=== PATIENT | female | born 1960 | race Caucasian/White ===

== ENCOUNTER → 2019-01-01 09:39 | Outpatient (CLI) | payer BC, SELFPAY ==
--- NOTE | 2019-01-01 09:49 | XR_ITS ---
XR DEXA axial skeleton HISTORY: ITS.REASON: POSTMENOPAUSAL ORDERING PHYSICIAN: Nikhil Resendez MD PATIENT AGE: 58 years COMPARISON: None FINDINGS: The BMD measured at the Left femoral neck is 0.711 g/cm squared with a T score of -2.4. This is considered Osteopenic according to the World Health Organization criteria. Fracture risk is Moderate. Treatment is advised. The L1 L4 density has T score of -1.8 IMPRESSION: Osteopenia with moderate fracture risk. Treatment advised. Suggest follow-up exam December 2020
== END ==
PROVIDERS: PCP Family Medicine; Visit Provider Family Medicine
DX: Z13.820 Encounter for screening for osteoporosis (principal)
CPT/HCPCS: 77080

== ENCOUNTER → 2019-05-09 14:42 | Outpatient (CLI) | payer BC, SELFPAY | PROVIDERS: PCP Family Medicine; Visit Provider Family Medicine | DX: R06.02 Shortness of breath (principal) | CPT/HCPCS: 93306 ==

== ENCOUNTER → 2020-03-17 10:40 | Outpatient (CLI) | payer BC, SELFPAY ==
--- NOTE | 2020-03-17 10:53 | XR_ITS ---
PROCEDURE: XR SHOULDER LT MIN 2V CLINICAL INDICATION: L ARM PAIN Left arm pain COMPARISON: No exams were available for comparison FINDINGS: No fracture or dislocation. No lytic or blastic change. There is normal mineralization. There are mild osteoarthritic changes of the glenohumeral joint. Minimal dystrophic calcification noted at the lateral aspect of the acromion. IMPRESSION: Minimal osteoarthritic change Dictated by: Mina Henao MD 03/17/2020 14:51 Electronically signed by Mina Henao MD in [place] 03/17/2020 14:51
== END ==
PROVIDERS: PCP Family Medicine; Visit Provider Family Medicine
DX: M79.602 Pain in left arm (principal)
CPT/HCPCS: 73030

== ENCOUNTER → 2020-05-08 14:29 | Outpatient (CLI) | payer BC, SELFPAY ==
--- NOTE | 2020-05-08 14:32 | MR_ITS ---
PROCEDURE: MR SHOULDER LT WO CON CLINICAL INDICATION: LEFT SHOULDER PAIN LT SHOULDER PAIN. NUMBNESS IN LT HAND. PAIN WHEN RAISING ARM ABOVE HEAD. [id number]. NO INJURY. PRIOR X-RAY 03-17-20 COMPARISON: DX XR SHOULDER LT MIN 2V from 03/17/2020 TECHNIQUE: Routine multiplanar multi echo sequences are performed without gadolinium enhancement. FINDINGS: There is mild acromioclavicular hypertrophy. No significant subacromial stenosis. No evidence of full-thickness or complete rotator cuff tear. There is some mild thickening with increased T2 signal within the supraspinatus and infraspinatus tendon consistent with tendinopathy/tendinosis. There is some irregularity along the undersurface of the supraspinatus tendon posteriorly which could be related to minimal fraying/partial tear of the undersurface. A complete tear is not present. The teres minor and subscapularis tendons have an unremarkable appearance. There is mild degree of motion artifact which does obscure fine detail of the subscapularis and teres minor tendon. The bicipital tendon is in place. No obvious labral tear. There is a subchondral cyst along the humeral head superiorly. No significant effusion. IMPRESSION: Mild acromioclavicular arthropathy with tendinopathy/tendinosis of the supraspinatus and infraspinatus tendons with some irregularity along the undersurface of the supraspinatus tendon posteriorly which could be seen with a partial tear. A complete or full-thickness tear is not felt to be present. Dictated by: Mina Henao MD 05/10/2020 08:02 Mina Henao MD in [place] 05/10/2020 08:02
== END ==
PROVIDERS: PCP Family Medicine; Visit Provider Orthopaedic Surgery
DX: M25.512 Pain in left shoulder (principal)
CPT/HCPCS: 73221

== ENCOUNTER 2020-07-16 13:00 | Outpatient (RCR) | payer BC, SELFPAY | END 2020-07-16 14:15 | disposition home or self-care (01) | LOC: PT 13:00 | PROVIDERS: Visit Provider Orthopaedic Surgery | DX: M54.2 Cervicalgia; M75.02 Adhesive capsulitis of left shoulder | CPT/HCPCS: 97010; 97014; 97033; 97035; 97110; 97163; 97164; G0283 ==

== ENCOUNTER → 2022-08-10 09:59 | Outpatient (CLI) | payer BC, SELFPAY | PROVIDERS: PCP Family Medicine | DX: Z79.899 Other long term (current) drug therapy (principal) ==

== ENCOUNTER 2023-12-13 16:32 | Outpatient (CLI) | payer SELFPAY ==
[2023-12-13 16:50] VITALS: BMI 29.1
--- NOTE | 2023-12-13 16:52 | XR_ITS ---
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 Views: 2 views. COMPARISON: CR XR CHEST 2V 12/13/2023 4:15 PM FINDINGS: Lungs: No evidence of pneumonia or interstitial edema. No apical lesions to suggest tuberculosis Pleural spaces: Unremarkable. No pleural effusion. No pneumothorax. Heart/Mediastinum: Unremarkable. No cardiomegaly. Bones/joints: Unremarkable. IMPRESSION: No evidence of pneumonia or interstitial edema. No apical lesions to suggest tuberculosis.
== END 2023-12-13 16:53 | disposition home or self-care (01) ==
LOC: UTC.OUT 16:35
PROVIDERS: PCP Family Medicine; Visit Provider Nurse Practitioner
DX: R76.11 Nonspecific reaction to tuberculin skin test without active tuberculosis (principal)
CPT/HCPCS: 71046

== ENCOUNTER 2024-02-22 08:48 | Outpatient (CLI) | payer MEDICARE, SELFPAY ==
--- NOTE | 2024-02-22 08:54 | XR_ITS ---
FINAL REPORT TECHNIQUE: Bone densitometry calculations of the lumbar spine and left hip were obtained. CLINICAL HISTORY: OSTEOPENIA COMPARISON: 01/01/2019 FINDINGS: Using L1-4, the bone mineral density of the spine is 0.824 g/cm2, corresponding to T-score of -2. Using the left hip, the bone mineral density of the femoral neck is 0.596 g/cm2, corresponding to a T-score of -2.8. NOTE: T-score: Standard deviation compared with peak bone mass of young adult mean. *Following the recommendations of the International Society of Bone Densitometry, classification of hip BMD is based on the lower of two T-scores; total hip or femoral neck. IMPRESSION: Osteoporosis: Lowest T-score is at or below -2.5. This patient''s T-score meets the World Health Organization criteria for osteoporosis. Reviewed, Interpreted and Dictated by Emmanuel Welsh III, MD Transcribed by Hilary Walsh Authenticated and [facility]
--- NOTE | 2024-02-22 08:55 | MM_ITS ---
PROCEDURE INFORMATION: Exam: Bilateral Screening 3D Mammography Exam date and time: 02/22/2024 8:47 AM Age: 63 years old Clinical indication: Screening examination TECHNIQUE: Imaging protocol: Bilateral Screening tomosynthesis and 2D mammography including computer-aided detection (CAD) when performed. COMPARISON: 1. DMSB DIGITAL MAMM-SCREEN BILATERAL 01/30/2012 9:12 AM 2. DIGMAMMS MAMMOGRAM SCREEN-EFFICIENCY MINER BLASTING N/C 07/24/2007 9:40 AM FINDINGS: MAMMOGRAPHY: Breast composition: The breasts are extremely dense, which lowers the sensitivity of mammography. Mass: None. Architectural distortion: None. Calcifications: No suspicious calcifications. Asymmetric density: None. Skin thickening: None. Axillary adenopathy: None. IMPRESSION: No mammographic evidence of malignancy. Annual screening is recommended unless otherwise clinically indicated. ASSESSMENT: BI-RADS Category 1: Negative
== END 2024-02-22 23:59 | disposition home or self-care (01) ==
LOC: RAD 08:49
PROVIDERS: PCP Family Medicine; Visit Provider Family Medicine
DX: M85.89 Other specified disorders of bone density and structure, multiple sites (principal); Z12.31 Encounter for screening mammogram for malignant neoplasm of breast; N60.19 Diffuse cystic mastopathy of unspecified breast
CPT/HCPCS: 77063; 77067; 77080

== ENCOUNTER 2024-07-26 05:23 | Emergency (ER) | payer MEDICARE, SELFPAY ==
--- NOTE | 2024-07-26 05:21 | ECG_ITS ---
APPROVED REPORT Exam: Resting ECG HR:84 bpm ECG Measurements Heart Rate 84 AXES UT 160 P 66 QRSd 90 QRS 60 QT 351 T 76 QTc 392 Conclusion SINUS RHYTHM WITH FREQUENT SUPRAVENTRICULAR PREMATURE COMPLEXES Abnormal rhythm No STEMI Electronically signed by : CARLY SANDOVAL, 07/27/2024 03:35:49
[2024-07-26 05:24] VITALS: BP 167/97; PULSE 102; RESP 17; TEMP 37; O2SAT 96; BMI 29.2
--- NOTE | 2024-07-26 05:24 | XR_ITS ---
PROCEDURE INFORMATION: Exam: XR Chest Exam date and time: 07/26/2024 5:28 AM Age: 63 years old Clinical indication: Pain; Chest pressure; Additional info: Cp TECHNIQUE: Imaging protocol: Radiologic exam of the chest. Views: 2 views. COMPARISON: CR XR CHEST 2V 12/13/2023 4:15 PM FINDINGS: Lungs: Unremarkable. No consolidation. Pleural spaces: Unremarkable. No pleural effusion. No pneumothorax. Heart/Mediastinum: Unremarkable. No cardiomegaly. Bones/joints: Unremarkable. IMPRESSION: No acute findings.
--- NOTE | 2024-07-26 05:26 | ED_ITS ---
Discharge Plan Disposition Patient Disposition: Home, Self-Care Condition: Good Referrals Follow up/Referrals: Gentry Collins MD [Staff Physician] - See instructions (follow up of chest pain, PAC's, palpitations, hx CAD with stents) Provider,Referral, [Primary Care Provider] - See instructions Activity Restrictions/Add. Instructions Additional Instructions/Restrictions: You were evaluated in the ER and are appropriate for discharge at this time. Continue your home medications as prescribed. Drink plenty of water. Take Tylenol, ibuprofen if needed for headache. Please make an appointment with your primary care doctor for reevaluation in 2 to 3 days, they should recheck your kidney function. Please call the cardiology office for immediate follow-up, you have been referred to Dr. Collins for this purpose Return to the ER with new, worsening, or otherwise concerning symptoms. Clinical Impressions Clinical Impression: Chest pain, Palpitations Print Language Print Language: Kuwaiti Discharge ED Provider: Vijaya [facility]a General Chief Complaint: Chest Pain Stated Complaint: chest pain Time Seen by Provider: 07/26/24 05:24 History of Present Illness HPI narrative: 63-year-old female with history of CAD with stents presents to the ER for concerns of palpitations, chest pain, and headache. Patient reports her symptoms onset yesterday evening, palpitations and chest pain started approximately 6 to 7 hours prior to arrival. She does not have any radiation of the chest pain. She described her headache as through the front and top of her head. She states she has mild congestion but this is often a chronic problem for her. She denies nausea, vomiting, diarrhea, no abdominal pain, no dizziness, numbness, tingling, or weakness. She states she is not actively having chest pain at this time but does feel occasional palpitations. She also reports her headache is improved compared to prior. Her headache was not thunderclap or the worst of her life. ROS otherwise negative. Related Data Allergies Allergy/AdvReac Type Severity Reaction Status Date / Time No Known Allergies Allergy Unverified 09/05/17 15:09 [facility] Disclaimer: The information contained in this section may have been updated after the patient was seen, as this information can be updated by other users. Social History Smoking Status: Never smoker alcohol intake: never current occupational status: other Travel in the last 8 weeks: None Other Medical History Have you received the Flu Vaccine for this season: No Have you received the Pneumonia Vaccine: No ROS Obtained: Yes All systems reviewed & no additional complaints except as documented ROS per HPI Physical Exam General General appearance: alert and in no apparent distress Head Head exam: atraumatic and normocephalic Eye Eye exam: Present PERRL and EOMI ENT ENT exam: Present mucous membranes moist Neck Neck exam: Present normal inspection and full ROM Chest Chest inspection: Present symmetric chest wall rise Respiratory Respiratory exam: Present normal lung sounds bilaterally; Absent respiratory distress, wheezes or stridor Cardiovascular Cardiovascular exam: Present regular rate and normal rhythm Abdominal Exam Abdominal exam: Present soft; Absent distention or tenderness Extremities Exam Extremities exam: Present full ROM; Absent edema, joint swelling or calf tenderness Neurological Exam Neurological exam: Present alert and oriented X3; Absent motor sensory deficit Psychiatric Psychiatric exam: Present normal affect and normal mood Skin Skin exam: Present warm and dry HEART Score HEART Score HEART Score assessment performed?: Yes History (anamnesis): Slightly suspicious ECG: Normal Age: 45-65 years Risk factors: Atherosclerosis history Troponin: </= normal limit HEART Score: 3 Critical Care Critical Care Time Critical Care Time: No Medical Decision Making Mirza Inquiry Pt receiving controlled substance: No Vital Signs Vital Signs: 07/26/24 05:24 07/26/24 05:30 07/26/24 05:32 Temperature 98.6 F Temperature Source Oral Pulse Rate 84 102 H Pulse Rate [Right] 102 H Respiratory Rate 17 15 Blood Pressure 170/95 H Blood Pressure [Right Arm] 167/97 H Blood Pressure Mean [Right Arm] 120 02 Sat by Pulse Oximetry 96 98 Oxygen Delivery Method Room Air 07/26/24 06:00 07/26/24 06:30 Temperature Temperature Source Pulse Rate 78 82 Pulse Rate [Right] Respiratory Rate Blood Pressure 138/75 148/83 H Blood Pressure [Right Arm] Blood Pressure Mean [Right Arm] 02 Sat by Pulse Oximetry 98 97 Oxygen Delivery Method Lab Data Labs: Lab Results 07/26/24 05:27: WBC 9.9, RBC 4.70, Hgb 13.9, Hct 38.7, MCV 82.5, MCH 29.5, MCHC 35.8 H, RDW 14.0, Plt Count 245, MPV 8.5, Neut % (Auto) 45.6, Lymph % (Auto) 43.3, [place] % (Auto) 7.4, Eos % (Auto) 2.1, Baso % (Auto) 1.6, Neut # (Auto) 4.5, Lymph # (Auto) 4.3, [place] # (Auto) 0.7, Eos # (Auto) 0.2, Baso # (Auto) 0.2, PT 10.3, INR 0.91, Sodium 139, Potassium 4.3, Chloride 109 H, Carbon Dioxide 17 L, Anion Gap 17.3 H, BUN 35 H, Creatinine 1.30 H, Estimated Creat Clear 49, E stimated GFR 41 L, Est GFR ( Amer) 50 L, Glucose 198 H, Calcium 10.1, Total Bilirubin 0.8, AST 30, ALT 24, Alkaline Phosphatase 55, Troponin I < 0.01, Total Protein 7.4, Albumin 4.6, Globulin 2.8, Albumin/Globulin Ratio 1.6 07/26/24 05:44: SARS-CoV-2 (PCR) Not detected, Influenza A Untype (PCR) Not detected, Influenza Type B (PCR) Not detected 07/26/24 05:27 07/26/24 05:27 Response Orders (Tests/Meds): ED MEDICATIONS Generic Name Dose Route Start Last Admin Trade Name Freq PRN Reason Stop Dose Admin Sodium Chloride 1,000 mls @ 999 mls/hr 07/26/24 05:54 07/26/24 05:56 Sod Chlor 0.9% 1000ml Bag IV 07/26/24 06:54 999 mls/hr .Q1H1M ONE Administration Discontinued Medications Generic Name Dose Route Start Last Admin Trade Name Freq PRN Reason Stop Dose Admin Aspirin 324 mg 07/26/24 05:24 07/26/24 05:34 Aspirin 81mg Chewable Tablet PO 07/26/24 05:25 324 mg ONCE ONE Administration Ketorolac Tromethamine 15 mg 07/26/24 05:37 07/26/24 05:48 Ketorolac 30mg/Ml Vial IV 07/26/24 05:38 15 mg ONCE ONE Administration ORDERS Category Date Time Status CXR 2 view (NOT portable) [XR chest 2V] Stat Exams 07/26/24 05:24 Completed CBC w/Auto Diff [Complete Blood Count Auto Diff] Stat Lab 07/26/24 05:27 Completed CMP [Comprehensive Metabolic Panel] Stat Lab 07/26/24 05:27 Completed HIV (1&2) Antibody Rapid Stat Lab 07/26/24 05:27 Received Hep C Ab with Reflex to RNA Stat Lab 07/26/24 05:27 Received PT INR [Prothrombin Time INR] Stat Lab 07/26/24 05:27 Completed Rapid PCR Covid and Flu A/B Stat Lab 07/26/24 05:44 Completed Trop I [Troponin I] Stat Lab 07/26/24 05:27 Completed Troponin I Q3H Lab 07/26/24 08:30 Ordered Troponin I Q3H Lab 07/26/24 11:30 Ordered MDM Narrative Medical Decision Narrative: In summary, this 63-year-old female with history of CAD presents to the emergency department today with palpitations, chest pain, headache. On initial evaluation patient is hemodynamically stable, afebrile, tachycardia that was reported on triage vitals was absent on my exam, heart rate in the 80s on exam, no peripheral edema, no calf swelling or tenderness, no chest wall tenderness, GCS 15, neurologically intact throughout with no deficits. Differential diagnosis includes but is not limited to ACS, I considered PE but patient is not tachycardic, hypotensive, or hypoxic, she also has no risk factors for PE and no history of DVT or findings of DVT on exam, considered electrolyte abnormality, dehydration, viral syndrome, pneumothorax, esophageal spasm, arrhythmia. Based on these concerns, I ordered serum labs, cardiac workup. ECG personally interpreted demonstrates normal sinus rhythm, rate 84, occasional PACs, normal axis, normal SD and QTc, no STEMI. Patient received aspirin, toradol for treatment. Labs personally reviewed demonstrate no leukocytosis or anemia, platelets normal, CMP demonstrates findings of kidney dysfunction that have been present previously based on my review of previous labs, IV fluids administered, no actionable electrolyte abnormalities, no LFT abnormalities, PT/INR normal.. Troponin undetectably low, reassuring in the setting of low heart score and patient's duration of symptoms. COVID, flu negative. I do not believe serial troponins are indicated at this time since patient is asymptomatic and her onset of symptoms was now over 7 hours ago. XR personally interpreted demonstrates no acute intrathoracic abnormality, see radiology read for final interpretation. On reassessment, patient is asymptomatic and resting comfortably. I believe patient is appropriate for discharge at this time. She has an appointment with her primary care doctor on Monday, I instructed her to follow-up closely with them to recheck her kidney function. I also gave her referral to our joy loading machine operator and she states she used to follow with a joy loading machine operator in [place] but has not seen them in a long time. I instructed her to follow-up with them as soon as possible for reevaluation and to review her ER workup and to discuss her episode of chest pain and PACs. Patient was given instructions on symptomatic management, follow up instructions, and return precautions for the emergency department. Patient indicated understanding and was discharged in stable condition.
[2024-07-26 05:30] VITALS: BP 170/95; PULSE 84; RESP 15; O2SAT 98
[2024-07-26 05:32] VITALS: PULSE 102
[2024-07-26] MEDS: ASPIRIN 81MG CHEWABLE TABLET 324 MG PO (05:34)
[2024-07-26 05:39] LABS: Basophils # 0.2 K/mm3 (0-0.2); Basophils % 1.6 % (0.1-2.0); Eosinophils # 0.2 K/mm3 (0.0-0.4); Eosinophils % 2.1 % (0.1-12.0); Hematocrit 38.7 % (37.0-47.0); Hemoglobin 13.9 g/dL (12.2-16.2); Lymphocytes # 4.3 K/mm3 (0.7-4.5); Lymphocytes % 43.3 % (10-50); Mean Corpuscular HGB Conc 35.8 g/dL (31.8-35.4); Mean Corpuscular Hemoglobin 29.5 pg (27.0-31.2); Mean Corpuscular Volume 82.5 fl (81-99); Mean Platelet Volume 8.5 fl (7.4-10.4); Monocytes # 0.7 K/mm3 (0.1-1.0); Monocytes % 7.4 % (1.7-9.3); Neutrophils # 4.5 K/mm3 (1.8-7.8); Neutrophils % 45.6 % (37.0-80.0); Platelet Count 245 K/mm3 (142-424); White Blood Count 9.9 K/mm3 (4.8-10.8)
[2024-07-26 05:43] LABS: Alanine Aminotransferase 24 U/L (12-78); Albumin Level 4.6 g/dl (3.5-5.0); Albumin/Globulin Ratio 1.6 (1.1-1.8); Alkaline Phosphatase 55 U/L (38-126); Anion Gap 17.3 mEq/L (5-15); Aspartate Amino Transferase 30 U/L (14-36); Bilirubin,Total 0.8 mg/dl (0.2-1.3); Blood Urea Nitrogen 35 mg/dl (7-17); Calcium 10.1 mg/dl (8.4-10.2); Carbon Dioxide 17 mmol/L (22.0-30.0); Chloride 109 mmol/L (98-107); Creatinine Clearance Estimated 49 mL/min (50-200); Estimated Glomerular Filt Rate 41 ml/min (>60); GFR (African American) 50 ML/MIN (>60); Globulin 2.8 g/dL (1.3-3.2); Glucose 198 mg/dl (74-100); Potassium 4.3 mmoL/L (3.5-5.1); Sodium 139 mmol/L (136-145); Total Protein,Serum 7.4 g/dl (6.3-8.2)
[2024-07-26 05:44] LABS: INR 0.91 (0.9-1.1); Prothrombin Time 10.3 seconds (10.1-12.5)
[2024-07-26 05:47] LABS: Coronavirus 19, PCR Not Detected (NotDetected); Influenza A, PCR Not Detected (NotDetected); Influenza B, PCR Not Detected (NotDetected)
[2024-07-26] MEDS: KETOROLAC 30MG/ML VIAL 15 MG IV (05:48)
[2024-07-26] MEDS: 0.9 % SODIUM CHLORIDE 1000ML 1,000 ML 999 ML IV (05:56)
[2024-07-26 06:00] VITALS: BP 138/75; PULSE 78; O2SAT 98
[2024-07-26 06:02] LABS: Troponin I < 0.01 ng/ml (0.00-0.034)
[2024-07-26 06:30] VITALS: BP 148/83; PULSE 82; O2SAT 97
[2024-07-26 06:42] VITALS: BP 148/83; PULSE 79; RESP 20; TEMP 36.8; O2SAT 98
[2024-07-26 11:59] LABS: HIV (1&2) Antibody Rapid NONREACTIVE (NONREACTIVE)
[2024-07-27 08:22] LABS: HCV Ab Non Reactive (Non Reactive)
== END 2024-07-26 06:53 | disposition home or self-care (01) ==
PROVIDERS: Emergency Provider Emergency Medicine
DX: R07.9 Chest pain, unspecified (principal); R00.2 Palpitations; R51.9 Headache, unspecified; R09.81 Nasal congestion
CPT/HCPCS: 71046; 80053; 84484; 85025; 85610; 86803; 87389; 87636; 93005; 96361; 96374; 99284; J1885; J7030

== ENCOUNTER 2024-10-08 12:46 | Outpatient (CLI) | payer MEDICARE, SELFPAY ==
--- NOTE | 2024-10-08 12:54 | XR_ITS ---
FINAL REPORT CLINICAL HISTORY: adhesive capsulitis of the right shoulder COMPARISON: None FINDINGS: RIGHT SHOULDER Two views demonstrate no acute fracture or dislocation. The visualized joint spaces are normally aligned. The soft tissues are unremarkable. IMPRESSION: No acute process. Reviewed, Interpreted and Dictated by Rafa Durand MD Transcribed by Hawa Mccall Authenticated and [facility]
== END 2024-10-08 23:59 | disposition home or self-care (01) ==
PROVIDERS: PCP Family Medicine; Visit Provider Family Medicine
DX: M75.01 Adhesive capsulitis of right shoulder (principal)
CPT/HCPCS: 73030

== ENCOUNTER 2024-10-29 10:00 | Outpatient (RCR) | payer MEDICARE, SELFPAY ==
--- NOTE | 2024-10-22 10:46 | HMH.OTOPEV ---
OT Inpatient Evaluation Rehab OT Outpatient Eval Start: 10/22/24 10:37 Freq: Status: Active Protocol: Document 10/22/24 10:38 RMARSHALL (Rec: 10/22/24 10:[address] [facility] [id number]) E-signed By Maximilian Omer, OT Outpatient Therapy Subjective History Subjective History Pt is a 64 year old female who reports to therapy for initial evaluation to right shoulder. Pt reports her shoulder began having pain and decreased AROM ~3 months ago. She does not recall any type of injury causing pain to begin. Pt is right hand dominant. 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 Some of her job duties do require repetitive use of bilateral UE's, lifting, and push/pull mechanisms. At this time, pt has had a shoulder x -ray with no acute findings. Pt does demonstrate with significant decline in AROM and strength at right shoulder . Pt will continue to be seen twice a week in order to address all shoulder deficits. New diagnosis of cancer in past 12 No months? Chief Complaint Pain,Stiff,Weakness Symptom Type Ache,Throb,Sharp,Dull,Stabbing Symptoms Relieved By Nothing Symptoms Aggravated By Physical Activity,Lifting Prior Functional Limitations None Current Functional Limitations Reaching,Lifting,Housework, Dressing,Sleeping,Recreation Activity Symptom Description Constant but Variable Level of pain today (0-10) 6 Pain scale - at its best (0-10) 6 Pain scale - at its worst (0-10) 10 Shoulder/Elbow Eval Shoulder Objective Measurements Shoulder ROM Right Shoulder Abduction Active Range of 95 degrees Motion (degrees) Shoulder Flexion Active Range of Motion 100 degrees (degrees) Query Text: Shoulder External Rotation Active Range 35 degrees of Motion (degrees) Shoulder Internal Rotation Active Range 50 degrees of Motion (degrees) Shoulder MMT Shoulder Abduction Strength Grade 4- Good- Shoulder Flexion Strength Grade 4- Good- Shoulder External Rotation Strength 4- Good- Grade Shoulder Internal Rotation Strength 4- Good- Grade Shoulder Strength Patient Testing Sitting Position Elbow Objective Measurements OT Outpatient Assessment Impairments Problems/Impairments Palpation Tenderness,Impaired Range of Motion,Impaired Strength,Impaired Endurance, Impaired Lifting,Impaired Dressing,Impaired Shower/ Bathing,Impaired Household Care,Impaired Work Activities, Subjective C/O Pain Prognosis Rehab Potential Good Clinical Impression Consistent with Diagnosis Yes Short Term Goals Number of Weeks 3 Increase Range of Motion Yes: Flex: 120 Abd: 110 ER: 55 IR: 60 Increase Strength Yes: 4/5 throughout right shoulder Increase Endurance Yes: Pt will tolerate R shoulder exercises for ~20 minutes prior to rest. Decrease Subjective C/O Pain Yes: 6/10 at worst Patient to be Ind w/ HEP Yes: AAROM exercises; pulleys and wand A/F Senior Care Goals Number of Weeks 6 Increase Range of Motion Yes: Flex: 140 Abd: 140 ER: 70 IR: 70 Increase Strength Yes: 5/5 throughout right shoulder Increase Endurance Yes: Pt will tolerate R shoulder exercises for ~30 minutes prior to rest. Decrease Subjective C/O Pain Yes: 4/10 at worst Patient to be Ind w/ Advanced HEP Yes: Advanced strengthening exercises Outpatient Therapy Plan of Care Treatment Plan May Include Therapeutic Exercise Including Home Yes Exercise Program Manual Therapy Techniques Yes Neuromuscular Re-education Yes Therapeutic Activities to Return to Yes Previous Functional/Work Level ADL/Self Care Education Yes Dry Needling Yes Thermal Modalities Yes Electrical Stimulation Yes Ultrasound/Phonophoresis Yes Iontophoresis Yes Massage Yes Eval/Re-Eval Yes Frequency Times per week 2 Duration Number of Weeks 6 Addendums This patient is a candidate for social No or vocational rehab? Patient/Guardian verbally acknowledges Yes understanding of treatment program and consents to further treatment? Patient/Guardian verbally acknowledges Yes understanding of diagnosis, prognosis and goals for treatment? Eval Complexity OT Charge 56159 - Moderate Complexity PHYSICIAN CERTIFICATION: I certify the specified therapy services for Chiqui Lal are required, authorized, and reviewed every 30 days.
== END 2024-10-29 23:59 | disposition home or self-care (01) ==
LOC: OT 10:00
PROVIDERS: Visit Provider Family Medicine
DX: M25.511 Pain in right shoulder (principal)
CPT/HCPCS: 97014; 97110; 97140; 97166; G0283

== ENCOUNTER 2024-11-08 12:48 | Outpatient (CLI) | payer MEDICARE, SELFPAY ==
--- NOTE | 2024-11-08 12:50 | MR_ITS ---
FINAL REPORT TECHNIQUE: Multiplanar and multisequence imaging of the shoulder was obtained without contrast. CLINICAL HISTORY: ACUTE PAIN OF RIGHT SHOULDER. RIGHT ARM PAIN AND LIMITED ROM. WEAKNESS IN ARM. NUMBNESS IN RIGHT HAND. FINDINGS: Bones/Joint: Bone marrow signal intensity is normal. There is no fracture, edema, or pathologic marrow replacement. The AC joint is intact. Small subchondral cysts are noted in the humeral head. Rotator Cuff: There is a partial thickness articular sided tear of the supraspinatus tendon involving slightly greater than 50% of the tendon thickness. The infraspinatus tendon is intact. The subscapularis tendon is intact. There is no fatty atrophy of the rotator cuff musculature. Labrum: No labral tear is identified. The biceps labral complex is intact. There is edema in the axillary recess and inferior glenohumeral ligament that extends into the rotator interval most consistent with adhesive capsulitis. Other: The more distal biceps tendon is located within the bicipital groove. There is a small joint effusion. There is a small amount of fluid in the subdeltoid bursa. Remaining soft tissues are within normal limits. IMPRESSION: Partial-thickness articular sided tear of the supraspinatus tendon. Rotator cuff tendinopathy. Findings concerning for adhesive capsulitis. Reviewed, Interpreted and Dictated by Ileana Taylor MD Transcribed by Emi Esparza Authenticated and [facility]
== END 2024-11-08 23:59 | disposition home or self-care (01) ==
LOC: RAD 12:49
PROVIDERS: PCP Family Medicine; Visit Provider Family Medicine
DX: M25.511 Pain in right shoulder (principal)
CPT/HCPCS: 73221

== ENCOUNTER 2025-03-21 02:56 | Observation (INO) | payer MEDICARE, SELFPAY ==
--- OUTSIDE RECORDS SUMMARY | 2024-08-08 10:45 | XMS_ITS ---
Author Organization [facility] Address [address] [facility] [address] [place] [id number] Care Team Providers Care Database Marketing Analyst Name Role Phone Yaya Worthington Primary Care Provider [phone] Allergies Allergen (clinical drug ingredient) Drug/Non Drug [...] 43 Performing Lab: Notes/Report: Test performed by [facility] [address] [place] [address] , [address], [place] [address] Hank Ayala MD, [employer] CLIA: [id number] Sodium 142 135-145 mmol/L Potassium 4.2 3.5-5.3 [...] 1 GM TAKE 2 CAPSULES BY M OUTH TWICE DAILY; Duration: 30 Active NovoLOG FlexPen [...] day; Duration: 30 day(s) Active Dexcom G7 Nursing Services Manager - as directed 10/12/2023 Active Farxiga [...] Problem Status W/U Status Risk Notes Problem Acute pain of right shoulder (M25.511) Active confirmed Vital Signs Blood pressure systolic 130 mm Hg 08/08/20 24 Blood pressure diastolic 70 mm Hg 024 Heart Rate 84 /min 08/08/2024 Height 63.5 in 08/08/2024 Weight 159.0 lbs 08/08/2024 BMI 27.72 kg/m2 08/08/2024 Encounters Encounter Location Date Provider Diagnosis [facility] [address] [facility] 36 [facility] [address] [place], [place] [id number] 08/08/2024 Yaya Worthington Type 2 diabetes mellitus [...] 2 Months, Reason: Provider Name:Yaya Robles er, 03/28/2025 11:45:00 AM, [address] [facility] 36 [facility], [address], [place], [place], [id number], Progress Notes * RADHA KAVEHKENOB:1960 ( 64 yo F)Acc No.[id number]:08/08/2024 Progress Notes Patient: BEAU KINSEY Provider: Yaya Worthington M.D. :1960 A ge:64 Y S ex:Female Date:08/08/2024 Phone: Address:[address] [place], [place] [id number] Subjective: * Chief Complaints: * 1 . [...] August 2020, COVID 19 Vaccine 2 shots Oct/, Eye exam 07/2023. * Surgical History: h [...] mouth once daily , Taking Dexcom G7 Nursing Services Manager - Device as directed , Taking [...] G 2211 Complex e/[place], [address] CAPILLARY BLOOD DRAW, 57[address] GLYCATED HEMOGLOBIN TEST, Modifiers: QW * Follow Up: 2 Months * Images: Billing Information: * Visit Code: 93554 Office Visit, Est Pt., Level 4. * Procedure Codes: G2211 Complex e/[place]. [address] CAPILLARY BLOOD DRAW. 62525 GLYCATED HEMOGLOBIN TEST. Modifiers: QW * Electronic signature of Yaya Worthington MD on 03/21/2025 at 03:00 AM EDT Sign off status: Pending * Provider: Yaya Worthington M.D. Date: 10/08/2023 Generated for Arun vanegas/Marycarmen/eTransmitting on: 0 03/21/2025 03:00 AM EDT History and Physical Notes * HPI (History [...]
--- OUTSIDE RECORDS SUMMARY | 2024-10-10 10:45 | XMS_ITS ---
Author Organization [facility] Address [address] [facility] [address] [facility] [address] [place] [id number] Care Team Providers Care Sem Manager Name Role Phone Yaya Worthington Primary Care [...] 54 Performing Lab: Notes/Report: Test performed by [facility], [facility] [address] [place] [address] , [address], [place] [address] Hank Ayala MD, Field Service Representative CLIA: [id number] Sodium 141 135-145 mmol/L Potassium 4.3 3.5-5.3 [...] 59 Performing Lab: Notes/Report: Test performed by [facility], [facility] [address] [place] [address] , [address], [place] [address] Hank Ayala MD, Field Service Representative CLIA: [id number] Albumin/Creatinine Ratio, Urine 59 0-30 ug/m g Microalbumin, Urine, Random 2.6 Creatinine, Urine 43.7 Reason For Referral Reason deltoid bursitis Diagnosis 1 Acute pain of right shoulder (M25.511) Referral Organization [facility] Referring Provider First Name Yaya Dillard Referring Provider Last Name Ander Referring Provider Speciality Family Pra ctice Referred Provider Specialty Physical The rapist General Notes Luci Acosta 10/10/19 3:26:42 PM > faxed to [facility] PT Referral Priority Routine REASON FOR VISIT [...] day; Duration: 90 days Active Dexcom G7 Fiber Heel Piece Shaper - as directed 10/12/2023 Active NovoLOG FlexPen [...] Problem Band neutrophil count above reference range ([id number]) Bandemia without diagnosis of specific infection (D72.825) Active confirmed Vital Signs Blood pressure systolic 140 mm Hg 10/10/19 25 Blood pressure diastolic 80 mm Hg 025 Heart Rate 66 /min 10/10/2024 Height 63.5 in 10/10/2024 Weight 161.6 lbs 10/10/2024 BMI 28.17 kg/m2 10/10/2024 Encounters Encounter Location Date Provider Diagnosis [facility] [address] [facility] [address] [place], [place] [id number] 10/10/2024 Yaya Worthington Acute pain of right [...] 4 Weeks, Reason: Provider Name:Yaya Robles er, 03/28/2025 11:45:00 AM, [address], [address], [place], [place], [id number], Progress Notes * WILLIAMS GARCIAOB:1960 ( 64 yo F)Acc No.[id number]:10/10/2024 Progress Notes Patient: BEAU KINSEY Provider: Yaya Worthington M.D. :1960 A ge:64 Y S ex:Female Date:10/10/2024 Phone: Address:[address] [place] [address] [address], [place], [place] Subjective: * Chief Complaints: * 1 . 2 months. 2. Needs labs & diabetic eye exam. * HPI: H PI: 64 year old female presents with c/o Patient is here today for?for w [place] P t sts she is here today [...] mouth once daily , Taking Dexcom G7 Fiber Heel Piece Shaper - Device as directed , Taking Dexcom [...] Codes: 8 5025 CBC WITH AUTO DIFF, 07680 GLYCATED HEMOGLOBIN TEST, Modifiers: QW , G2211 Complex e/m visit add on * Follow Up: 4 Weeks * Images: Billing Information: * Visit Code: 98220 Office Visit, Est Pt., Level 4. * Procedure Codes: 24736 CBC WITH AUTO DIFF. 04216 GLYCATED HEMOGLOBIN TEST. Modifiers: QW G2211 Complex e/m visit add on. * Electronic signature of Yaya Worthington MD on 03/21/2025 at 03:01 AM EDT Sign off status: Pending * Provider: Yaya Worthington M.D. Date: 0 10/10/2024 Generated for Arun vanegas/Marycarmen/Marissa on: 0 03/21/2025 03:01 AM EDT History and Physical Notes * [...]
[2025-03-21] VITALS (13 sets, daily range): BP systolic 121–167; BP diastolic 67–95; PULSE 60–86; RESP 11–20; TEMP 36.6–36.9; O2SAT 95–98; BMI 30.9; BMI 30.3
--- NOTE | 2025-03-21 02:59 | ECG_ITS ---
APPROVED REPORT Exam: Resting ECG HR:80 bpm ECG Measurements Heart Rate 80 AXES MT 157 P 81 QRSd 101 QRS 52 QT 389 T 76 QTc 425 Conclusion SINUS RHYTHM WITH FREQUENT SUPRAVENTRICULAR PREMATURE COMPLEXES No STEMI Electronically signed by : CARLY SANDOVAL, 03/21/2025 07:47:29
--- OUTSIDE RECORDS SUMMARY | 2025-03-21 03:00 | XMS_ITS ---
Author Organization Unknown Vital Signs BpStanding BpSitting BpSupine Date Temperature HeartRate Weight Hei ght Spo2 Respiration Bmi HeadCircumference FieldCount TimeRecorded NeckCircumferen ce WaistCircumference Pulse 140/80 10/10 00:00 :00 98.2 66 161,9.6 0 5,3 28.1 7 6 03/14/2025 14:45:00 112/60 10/03 00:00 :00 98.4 70 159,0 5,3 27.7 2 6 03/14/2025 11:00:00 130/70 08/08 00:00 :00 98.2 84 159,0 5,3 27.7 2 6 03/14/2025 14:45:00
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
--- OUTSIDE RECORDS SUMMARY | 2025-03-21 03:01 | XMS_ITS | Clinical Summary ---
Author Organization [facility] Address [facility] [place] [address] Phone Care Team Providers Care Powder Coater Name Role Phone Unavailable Primary Care Provider Unavailabl e Allergies No known active allergies Surgical History Surgery Date Site/Laterality Comments HYSTERECTOMY CHOLECYSTECTOMY Medical History Medical History Date Comments Diabetes mellitus (HCC) Hypertension Social History Tobacco Use Types Packs/Day Years Used Date Smoking Tobacco: Former Smokeless Tobacco: Never Alcohol Use Standard Drinks/Week Comments Not Currently 0 (1 standard drink = 0.6 oz pur e alcohol) Comments No Sex and Gender Information Value Date Recorded Sex Assigned at Not on file Legal Sex Female 6:18 PM EDT Gender Identity Not on file Sexual Orientation Not on file Obstetrics History Last Filed Vital Signs Vital Sign Reading Time Taken Comments Blood Pressure 97/66 03/12/2021 9:18 PM EDT Pulse 64 03/12/2021 9:18 PM EDT Temperature 36.8 C (98.2 F) 03/12/2021 6:26 PM EDT Respiratory Rate 16 03/12/2021 9:18 PM EDT Oxygen Saturation 96% 03/12/2021 9:18 PM EDT Inhaled Oxygen Concentration - - Weight 72.2 kg (159 lb 4 oz) 03/12/2021 6:26 PM EDT Height 157.5 cm (5' 2 ) 03/12/2021 6:26 PM EDT Body Mass Index 29.13 03/12/2021 6:26 PM EDT Plan of Treatment Health Maintenance Due Date Last Done Comments Annual Wellness Exam 1961 Hepatitis C Screening 1976 DTaP/TDaP/Td (1 - Tdap) 1977 Breast Cancer Screening 1998 Cologuard 2003 Colon Cancer Screening 2003 Colonoscopy 2003 FIT 2003 Sigmoidoscopy 2003 Virtual Colonography 2003 Pneumococcal Vaccine 50+ (1 of 1 - PCV) 2008 Zoster (1 of 2) 2008 Bone Density Screening 2023 COVID-19 Vaccine (3 - 2023-2 5 season) 2024 11/09/2020, 10/19/2020 Influenza Vaccine (#1) 2025 Hepatitis B Vaccine Aged Out No longe r eligible based on patient's age to complete this topic Meningococcal B Vaccine Aged Out No l onger eligible based on patient's age to complete this topic Insurance [employer] GENER[employer] on file ALLSTATE CLAIMS AA
--- OUTSIDE RECORDS SUMMARY | 2025-03-21 03:01 | XMS_ITS | Data Portability ---
Author Organization [facility], LIZETTS LOMA CLOSED Address [address] [place] [address] Care Team Providers Care Java Development Team Lead Name Role Phone Yaya ECHEVERRIA Referring Provider Assessment No assessment recorded. Plan of Treatment Reminders Order Date Submit Date Provider Last Modified By Organization Details Last Modified Time Details Appointments MNT FOLLOW-U P 2024 09:30A M JAYLIN L[address] RD Not available Not available Not available RECHECK 2024 10:30A M IRA MEJIA ANTIQUE AUTOMOBILES REPAIRER Not available Not available Not available Lab glucose, fingerst ick, blood [address] Endocr[facility]ology , [address] [place] [address], [address], 02/13/2025 10:45:48 hemoglob in A1C, fingerst ick [address] Endocrinology , [address] [place] [address], [phone], 02/13/2025 10:45:48 glucose, fingerst ick, blood [address] Endocrinology , [address] [place] [address], [address], 01/16/2025 12:57:21 hemoglob in A1C, fingerst ick [address] [facility], [address] [place] [address], [address], 01/16/2025 12:57:21 lipid panel, serum 2024 025 [facility], [address] [place] [address], [address], 10/11/2024 12:31:22 CMP, serum or plasma 2024 025 [facility], [address] [place] [address], [phone], 10/11/2024 12:31:20 LDL, direct, serum 2024 025 [facility], [address] [place] [address], [phone], 10/15/2024 18:05:51 glucose, fingerst ick, blood 2024 025 [facility], [address] [place] [address], [phone], 10/11/2024 11:10:52 hemoglob in A1C, fingerst ick 2024 025 [facility], [address] [place] [address], [phone], 10/11/2024 11:10:52 microalb umin/cre atinine, mass ratio, urine 2024 025 [email or web address] [facility], [address] [place] [address], [phone], 11/15/2024 15:46:11 T4, free, serum 2024 025 [facility], [address] [place] [address], [address], 10/11/2024 12:26:03 TSH, serum or plasma 2024 025 [facility], [address] [place] [address], [address], 10/11/2024 12:26:05 glucose, fingerst ick, blood 2023 024 [facility], [address] [place] [address], [address], 06/07/2024 10:29:43 hemoglob in A1C, fingerst ick 2023 024 [facility], [address] [place], [address], 06/07/2024 10:29:44 Referral nutritio nist/ titian referral 2024 [email or web address], [address] [place] [address], [address], 01/29/2025 16:16:15 Procedures None recorded . Surgeries None recorded . Imaging None recorded . Medication Orders Jardianc e 25 mg tablet [address] [facility], [address] [place], [address], 02/13/2025 10:45:48 Novolog FlexPen U-100 Insulin aspart 100 unit/mL (3 mL) subcutan eous [address] [facility], [address] [place], [address], 02/13/2025 10:45:48 Toujeo SoloStar U-300 Insulin 300 unit/mL (1.5 mL) subcutan eous pen [address] [facility], [address], [place], [address], 02/13/2025 10:45:48 Jardianc e 25 mg tablet [address] [facility], [address], [address], 01/16/2025 12:57:27 Novolog FlexPen U-100 Insulin aspart 100 unit/mL (3 mL) subcutan eous 2024 025 [facility]91, [address], [address], 01/16/2025 12:57:28 Toujeo SoloStar U-300 Insulin 300 unit/mL (1.5 mL) subcutan eous pen 2024 025 [facility], [address] [facility], [place], [address], 01/16/2025 12:57:23 Ozempic 0.25 mg or 0.5 mg (2 mg/3 mL) subcutan eous pen injector 2023 025 [facility], [address], [address], 10/11/2024 11:10:25 Patient TargetsNo targets recorded. Patient InstructionsNo instructions recorded. Reason for Referral Sail Repairer/dietitian Refer ral for Uncontrolled type 2 diabetes mellitus Referring Physician: Ira Mejia, Endocrinology, Encounter Date: 01/16/2025 Results Created Date Observation Date Name Description Value Unit Range Abnormal Flag Note LastModifiedBy Organization Detail LastModifiedTime 06/07/2006/07/2024 hemog lobin A1C, finge rstic k hemoglobin A1C % 9.4 % 4.0 - 5.6 Not Available [facility] [address] [place], [address], 06/07/2024 09:14:36 06/07/20 24 06/07/2024 gluco se, finge rstic k, blood glucose, fingerstick 230 mg/dL 70 - 100 Not Available [facility] [address] [place], [address], 06/07/2024 09:14:20 10/11/19 25 10/11/2024 T4,FR EE T4,free 1.40 NG/dL 0.93-1 .70 normal Not Available [facility] [address] [place] [address], [address], 10/11/2024 12:26:03 10/11/19 25 10/11/2024 TSH TSH 0.873 u[IU] /mL 0.270- 4.200 normal Not Available [facility] [address] [place] [address], [address], 10/11/2024 12:26:05 10/11/19 25 10/11/2024 COMP. METAB OLIC PANEL glucose 151 mg/dL 74-100 high Not Available [facility] [address] [place] [address], [address], 10/11/2024 12:31:20 10/11/19 25 10/11/2024 COMP. METAB OLIC PANEL blood urea nitrogen 31 mg/dL 6-20 high Not Available [facility] [address] [place] [address], [address], 10/11/2024 12:31:20 10/11/19 25 10/11/2024 COMP. METAB OLIC PANEL creatinine 1.15 mg/dL 0.50-0 .95 high Not Available [facility] [address] [place] [address], [address], 10/11/2024 12:31:20 10/11/19 25 10/11/2024 COMP. METAB OLIC PANEL BUN/creatini ne ratio 27 (calc ) 10-20 high Not Available [facility] [address] [place] [address], [address], 10/11/2024 12:31:20 10/11/19 25 10/11/2024 COMP. METAB OLIC PANEL sodium 141 mmol/ L 136-14 5 normal Not Available [facility] [address] [place] [address], [address], 10/11/2024 12:31:20 10/11/19 25 10/11/2024 COMP. METAB OLIC PANEL potassium 4.3 mmol/ L 3.4-5. 0 normal Not Available [facility] [address] [place] [address], [address], 10/11/2024 12:31:20 10/11/19 25 10/11/2024 COMP. METAB OLIC PANEL chloride 104 mmol/ L 98-107 normal Not Available [facility] [address] [place] [address], [address], 10/11/2024 12:31:20 10/11/19 25 10/11/2024 COMP. METAB OLIC PANEL carbon dioxide 19 mmol/ L 22-31 low Not Available [facility] [address] [place] [address], [address], 10/11/2024 12:31:20 10/11/19 25 10/11/2024 COMP. METAB OLIC PANEL anion gap 18 (calc ) 7-25 normal Not Available [facility] [address] [place] [address], [address], 10/11/2024 12:31:20 10/11/19 25 10/11/2024 COMP. METAB OLIC PANEL calcium 11.2 mg/dL 8.6-10 .2 high Not Available [facility] [address] [place] [address], [address], 10/11/2024 12:31:20 10/11/19 25 10/11/2024 COMP. METAB OLIC PANEL total protein 7.9 g/dL 6.4-8. 3 normal Not Available [facility] [address] [place] [address], [address], 10/11/2024 12:31:20 10/11/19 25 10/11/2024 COMP. METAB OLIC PANEL albumin 4.8 g/dL 3.5-5. 2 normal Not Available [facility] [address] [place] [address], [address], 10/11/2024 12:31:20 10/11/19 25 10/11/2024 COMP. METAB OLIC PANEL globulin 3.1 1.5-4. 5 normal Not Available [facility] [address] [place] [address], [address], 10/11/2024 12:31:20 10/11/19 25 10/11/2024 COMP. METAB OLIC PANEL albumin/glob ulin ratio 1.5 (calc ) 1.1-2. 5 normal Not Available [facility] [address] [place] [address], [address], 10/11/2024 12:31:20 10/11/19 25 10/11/2024 COMP. METAB OLIC PANEL bilirubin, total 0.5 mg/dL 0.1-1. 2 normal Not Available [facility] [address] [place] [address], [address], 10/11/2024 12:31:20 10/11/19 25 10/11/2024 COMP. METAB OLIC PANEL alkaline phosphatase 72 U/L 30-121 normal Not Available [facility] [address] [place] [address], [address], 10/11/2024 12:31:20 10/11/19 25 10/11/2024 COMP. METAB OLIC PANEL AST 20 U/L 0-32 normal Not Available [facility] [address] [place] [address], [address], 10/11/2024 12:31:20 10/11/19 25 10/11/2024 COMP. METAB OLIC PANEL ALT 16 U/L 0-33 normal Not Available [facility] [address] [place] [address], [address], 10/11/2024 12:31:20 10/11/19 25 10/11/2024 COMP. METAB OLIC PANEL GFR 52 >= 60 abnormal NOT E New calcu latio n for GFR (CKD- EPI 2020) is formu lated witho ut race adjus tment facto rs at the recom menda tion of the Manisha buckley and Silvia Mike ty of Nephr ology . This calcu latio n has not been valid ated in pregn ant women . For pedia tric patie nts refer to https ://ehsan mae.avni marroquin.o rg/pr ofess ional s/KDO QI/gf r_cal culat orPed Not Available [facility] [address] [place] [address], [address], 10/11/2024 12:31:20 10/11/1910/11/2024 LIPID PROFI LE HDL cholesterol 46 mg/dL 50-242 low Not Available [facility] [address] [place] [address], [address], 10/11/2024 12:31:22 10/11/19 25 10/11/2024 LIPID PROFI LE triglyceride s 362 mg/dL 0-149 high TRIGL YCERI DE RANGE S ANDREA L: < 150 BORDE RLINE HIGH: 150 - 199 HIGH: 200 - 499 VERY HIGH: > OR = 500 Not Available [facility] [address] [place] [address], [address], 10/11/2024 12:31:22 10/11/1910/11/2024 LIPID PROFI LE cholesterol 152 mg/dL 0-199 normal BRENNON STERO L (TOTA L) RANGE S BENITO ABLE: < 200 BORDE RLINE : 200 - 239 HIGHE R RISK: > 239 Not Available [facility] [address] [place], [address], 10/11/2024 12:31:22 10/11/19 25 10/11/2024 LIPID PROFI LE LDL cholesterol 34 mg/dL _(sarah c) 0-99 normal LDL BRENNON STERO L RANGE S OPTIM AL: < 100 NEAR/ ABOVE OPTIM AL: 100 - 129 BORDE RLINE HIGH: 130 - 159 HIGH: 160 - 189 VERY HIGH: > OR = 190 Not Available [facility] [address] [place], [address], 10/11/2024 12:31:22 10/11/19 25 10/15/2024 DIREC T,LDL BRENNON STERO L direct,LDL cholesterol 71 mg/dL <100 normal Benito able range <100 mg/dL for prima ry preve ntion ; <70 mg/dL for patie nts with CHD or diabe tic patie nts with > or = 2 CHD risk facto rs. Not Available [facility] [address] [place] [address], [phone], 10/15/2024 18:05:51 10/11/19 25 10/11/2024 hemog lobin A1C, finge rstic k hemoglobin A1C % 7.9 % 4.0 - 5.6 Not Available [facility] [address] [place] [address], [address], 10/11/2024 10:57:39 10/11/19 25 10/11/2024 gluco se, finge rstic k, blood glucose, fingerstick 165 mg/dL 70 - 100 Not Available [facility] [place] [address] [place] [address], [address], 10/11/2024 10:57:15 01/17/20 25 01/16/2025 hemog lobin A1C, finge rstic k hemoglobin A1C % 9.5 % 4.0 - 5.6 Not Available [facility] [address] [place] [address], [address], 01/16/2025 08:00:18 01/17/20 25 01/16/2025 gluco se, finge rstic k, blood glucose, fingerstick 144 mg/dL 70 - 100 Not Available [facility] [address] [place] [address], [address], 01/16/2025 08:00:18 02/14/2002/13/2025 hemog lobin A1C, katya rstic k hemoglobin A1C % 9.3 % 4.0 - 5.6 Not Available [facility] [address] [place], [address], 02/12/2025 10:20:34 02/14/2002/13/2025 gluco se, katya rstic k, blood glucose, fingerstick 180 mg/dL 70 - 100 Not Available [facility] [address] [place], [address], 02/12/2025 10:20:34 Result Notes None recorded. 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 DIET[facility]/NUTRITIONAL [facility] [address] [place] [phone] , Date: 02/14/2025RE: Chiqui Lal, : 1960, PT ID #[id number] Ht: 5 ft 2 in Wt: 171 lbs 3.2 oz With clothes BMI: 31.3 Medications Reviewed Medications NameDate Source DEXCOM G7 SENSOR DEVICECHANGE SENSOR EVERY 10 DAYS12/20/24 walker PEACE MD gemfibroziL 600 mg tabletTake 1 tablet(s) twice a day by oral route.02/15/22 entered Lynette Martin Jardiance 25 mg tabletTake 1 tablet(s) every day by oral route for 90 days.02/13/25 prescribed IRA MEJIA APRN Maxzide-25mg 37.5 mg-25 mg tabletTake 1 tablet(s) every day by oral route.02/15/22 entered Lynette Martin metFORMIN 500 mg tabletTake 1 tablet by mouth twice daily02/12/25 renewed IRA MEJIA APRN metoprolol tartrate 50 mg tabletTake 1 tablet(s) twice a day by oral route.02/15/22 entered Lynette Martin Multi-Vitamin HP/Ivffrmqx45/31/22 entered Lynette Martin NovoLOG Flexpen U-100 Insulin aspart 100 unit/mL (3 mL) [id number] units twice daily before meal +2 units to prime the pen02/13/25 prescribed IRA MEJIA APRN OneTouch Delica Lancets 33 gauge3 times daily02/15/22 entered Taya Mouseflorencio OneTouch Verio test strips3 times daily06/09/23 prescribed KURT PEACE MD rosuvastatin 40 mg tabletTake 1 tablet(s) every day by oral route.02/15/22 entered Lynette aMrtin Synthroid 50 mcg bkzrdnAwrni88/05/16 entered angelia.246 Toujeo Max U-300 SoloStar 300 unit/mL (3 mL) subcutaneous insulin penINJECT 44 SUBCUTANEOUSLY ONCE DAILY AFTER MEALS (MAX FOR 45 UNITS PER DAY)12/20/24 renewed KURT PEACE MD Toujeo SoloStar U-300 Insulin 300 unit/mL (1.5 mL) subcutaneous penInject 48 unit(s) every day by subcutaneous route in the morning for 90 days.02/13/25 prescribed IRA MEJIA APRN Vascepa 1 gram capsuleTake 2 capsule(s) twice a day by oral route.02/15/22 entered Lynette Martin Social HistorySocial History not reviewed (last reviewed 06/07/2024) Substance UseDo you or have you ever smoked tobacco?: Former smokerHow many years have you smoked tobacco?: (Notes: quit 35 years ago)Do you or have you ever used any other forms of tobacco or nicotine?: NoWhat was the date of your most recent tobacco screening?: 02/15/2022Has tobacco cessation counseling been provided?: NoWhat is your level of alcohol consumption?: NoneDo you use any illicit or recreational drugs?: NoWhat is your level of caffeine consumption?: OccasionalPublic Health and TravelHave you recently traveled abroad?: NoAdditional HistoryNone recordedProcedure DocumentationMNT Initial Visit:60 minutesMNT Initial Visit Reason for visit:Diabetes Referring Physician: IRA MEJIA APRN, NPNutritional Assessment: Food and Nutrition Intake: Meal/Snack Pattern: Pt reports meals are prepared at home by self. Pt reports grazing habits; with ~1 meal/ day. Pt reports frequency of eating out approximately 6+ times a week from sitdown restaurants ( [employer]) Pt reports biggest challenge as sweet cakes, junk food, crackers or chips . No reports of paying attention to food choices/following an eating plan, participation in weight loss programming or cultural diet influence at this time. 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 Pt reports PT 45-60 minutes/2x/ wk ( ~8 more sessions) Has physician limited physical activity in any way? No, Pt is currently in PT Understanding of condition: Fair Beliefs and Attitudes: Cultural diet: No Willingness to make changes: Pt is willing to make changes Barriers to Behavior Change: Pt reports shoulder injury that is limiting her cooking abilities at this time. Nutritional Diagnosis Inconsistent carbohydrate intakeRelated to food-related knowledge deficit, skipped meals/timing of meals, food choice/selections, portions, and frequency of eating out, as evidenced by HA1c 9.3% (02/13/25) and 24-hr dietary recall/nutritional assessment questionnaire. Intervention: Nutritional/Diet Recommendations: Consistent carbohydrate meal plan for diabetes control. 3 meals per day. Avoid missing meals. 30-45 grams carbohydrate per meal and 15-20 grams for snacks per ADA recommendations Read food labels for serving sizes and total carbohydrate for improving carb consistency at meals. Avoid concentrated sweets and sugary beverages Increase non starchy vegetables and choose lean protein for heart health Improve balance of dinner meal including protein, carbohydrate and vegetable Reduce portions of starches and increase portions of nonstarchy vegetables Avoid high fat foods and fried foods Increase physical activity for weight loss, improved BG control, and overall health Nutrition Education: Reviewed dietary history today with pt. Encouraged pt to not skip meals and promoted three meals daily. Instructed pt on carbohydrates, foods that contained carbohydrates, their role in the body and basic DM pathophysiology Instructed pt on consistent carbohydrate diet to achieve better BG control and provide adequate energy. Encouraged pt to reach a goal of 45 gms of carbohydrates at each meal, focusing on healthy complex carbohydrates. Encouraged healthy carbohydrate/protein snacks consisting of 15-30 gm carbohydrate Discussed incorporating lean protein at each meal. Instructed pt on carbohydrate counting, reading food labels, portion sizes and meal planning. Demonstrated proper portions through the use of food models (Plate Method). Encouraged pt to avoid concentrated sweets and sugary beverages. Discussed moderation and balancing healthy choices with calorie-dense foods. Discussed meal planning and options for improving current meals to meet recommendations. Pt was receptive to suggestions Reviewed goal fasting blood sugar 80-130. RD to evaluate nutrition education needs at follow-up appt. Pt agreeable to keeping food logs for next session. Patient Goals: 3 meals consisting of 30-45 grams carbohydrates and 30-35 grams protein per meal. Understanding of education: Pt asked appropriate questions and verbalized understanding Patient education materials provided: Planning Healthy Meals Reading Food Labels Food Logs Monitoring and Evaluation:Follow up plan: 6 weeks Provided patient with RD contact info and encouraged patient to contact RD with any questions.Counseling Visit Length 60 minutes Assessment/Plan1.Uncontroll ed type 2 diabetes mellitus with [id number]: Type 2 diabetes mellitus with hyperglycemia Return to Office IRA MEJIA APRN for RECHECK at ENDOCRINOLOGY [facility] on 04/10/2025 at 10:[address], LD for MNT FOLLOW-UP at DI[facility]ITIAN SERVICES [facility] on 04/10/2025 at 09:30 AM IRA MEJIA APRN [address] [place] [address], [phone], [facility] 02/20/2025 07:16:41 Procedures Surgical History Date Name Laterality Status Provider Name and Address Organization Details Recorded Time 02/14/20 MNT Initial Visit completed JAYLIN LUTHER, KATHY, LD [address] [place], [address], [facility] 02/14/2025 08:14:36 Hysterectomy/revise vagina completed [facility] 02/15/2022 14:03:41 cholecystectomy completed [facility] 02/15/2022 14:03:51 section completed [facility] 02/15/2022 14:04:02 Imaging Results None recorded. Procedure Notes None recorded. Medical Equipment None Reported. Allergies No known drug allergies Medications Name Sig Start Date Stop Date Status Note LastModified by Organization Details LastModified Time Maxzide-2 5mg 37.5 mg-25 mg tablet Take 1 tablet every day by oral route. active Not Available Not Available No t Available metformin 500 mg tablet Take 1 tablet by mouth twice daily 2024 active 01/16/25- Not Available Not Available Not Available Keppra 500 mg tablet Two times a day 02/15 completed Duration : 30 days;Ins truction s: not taking;F requency : bid;Medi cation Descript ion: levetira cetam; Dosage:1 ; Route:or al; refills: 11; Quantity :60 tablet Not Available Not Available Not Available gemfibroz il 600 mg tablet Take 1 tablet twice a day by oral route. active Not Available Not Available No t Available metformin 1,000 mg tablet Take 1 tablet twice a day by oral route for 90 days. 06/01 completed Not Available Not Available Not Available metoprolo l tartrate 50 mg tablet Take 1 tablet twice a day by oral route. active Not Available Not Available No t Available Synthroid 50 mcg tablet Daily active Frequenc y: daily;Me dication Descript ion: levothyr oxine; Dosage:1 ; Route:or al; refills: 0; Quantity :30 tablet Not Available Not Available Not Available aspirin 81 mg tablet Daily 02/15 completed Duration : 30 days;Santiago quency: daily;Me dication Descript ion: aspirin; Dosage:1 ; Route:or al; refills: 0; Quantity :30 Not Available Not Available Not Available atenolol 50 mg tablet Daily 02/15 completed Duration : 30 days;Santiago quency: daily;Me dication Descript ion: atenolol ; Dosage:1 ; Route:or al; refills: 0; Quantity :30 tablet Not Available Not Available Not Available Novolog FlexPen U-100 Insulin aspart 100 unit/mL (3 mL) subcutane ous 16-18 units twice daily before meal +2 units to prime the pen 2024 active Not Available Not Available Not Avai lable rosuvasta tin 40 mg tablet Take 1 tablet every day by oral route. active Not Available Not Available No t Available amlodipin e 10 mg-atorva statin 40 mg tablet Take 1 tablet every day by oral route. 02/15 completed Not Available Not Available Not Available Multi-Vit guy HP/Minera ls active Not Available Not Available Not Available Tricor Daily 02/15 completed Frequenc y: daily;Me dication Descript ion: fenofibr ate; Dosage:1 ; Route:or al; refills: 0; Quantity :30 tablet Not Available Not Available Not Available Denise 10 mg-40 mg tablet Daily 02/15 completed Frequenc y: daily;Me dication Descript ion: amlodipi ne besylate /olmesar grewal; Dosage:1 ; Route:or al; refills: 0 Not Available Not Available Not Available OneTouch Delica Lancets 33 gauge 3 times daily active Not Available Not Available No t Available OneTouch Verio test strips 3 times daily 2022 active 03/03/23- 06/16/23 Not Available Not Available Not Available Vascepa 1 gram capsule Take 2 capsules twice a day by oral route. active Not Available Not Available No t Available Farxiga 10 mg tablet Take 1 tablet every day by oral route. 01/16 completed 11/28/23- 03/01/24 Not Available Not Available Not Available Jardiance 25 mg tablet Take 1 tablet every day by oral route for 90 days. 2024 active Not Available Not Available Not Avai lable Toujeo SoloStar U-300 Insulin 300 unit/mL (1.5 mL) subcutane ous pen Inject 48 units every day by subcutan eous route in the morning for 90 days. 2024 active Not Available Not Available Not Avai kwame Soliqua 100/33 100 unit-33 mcg/mL subcutane ous insulin pen 60 units q hs 02/15 completed Not Available Not Available Not Available Ozempic 0.25 mg or 0.5 mg (2 mg/1.5 mL) subcutane ous pen injector INJECT 0.5 MG BY SUBCUTAN EOUS ROUTE ONCE WEEKLY 03/03 completed Not Available Not Available Not Available Toujeo Max U-300 SoloStar 300 unit/mL (3 mL) subcutane ous insulin pen INJECT 44 SUBCUTAN EOUSLY ONCE DAILY AFTER MEALS (MAX FOR 45 UNITS PER DAY) 2024 active 10/11/24- 01/10/25 Not Available Not Available Not Available Toujeo Max U-300 SoloStar Administ er 24 units daily 06/01 completed Not Available Not Available Not Available Dexcom G7 Sensor device CHANGE SENSOR EVERY 10 DAYS 2024 active 09/19/24- Not Available Not Available Not Available Ozempic 0.25 mg or 0.5 mg (2 mg/3 mL) subcutane ous pen injector Inject 0.5 mg every week by subcutan eous route. 10/11 completed Not Available Not Available Not Available Vitals Date Recorded Body height Body mass index (BMI) Body weight Systolic And Diastolic Provider Name and Address Organization Details Last Updated DateTime 10/11/2024 157.48 cm 29.1 kg/m2 49345.19 g 188/72 mm[Hg] [facility] 10/11/2024 10:55:56 Date Recorded Body height Body mass index (BMI) Body weight Heart rate Systolic And Diastolic Provider Name and Address Organization Details Last Updated DateTime 01/16/2025 157.48 cm 30.5 kg/m2 99215.93 g 60 /min 130/82 mm[Hg] Rebecca Frod [facility] 01/16/2025 11:17:31 Date Recorded Body height Body mass index (BMI) Body weight Provider Name and Address Organization Details Last Updated DateTime 02/13/2025 157.48 cm 31.3 kg/m2 [address]67.[address], [place] [address] [place], [address] 02/13/2025 09:18:33 Date Recorded Body height Body mass index (BMI) Body weight Systolic And Diastolic Provider Name and Address Organization Details Last Updated DateTime 02/13/2025 157.48 cm 30.7 kg/m2 59355.08 g 118/60 mm[Hg] Jose Spearss [facility] 02/13/2025 10:20:52 Date Recorded Body height Body mass index (BMI) Body weight Heart rate Systolic And Diastolic Provider Name and Address Organization Details Last Updated DateTime 06/07/2024 157.48 cm 30 kg/m2 61764.15 g 76 /min 116/68 mm[Hg] Taya Raghu [facility] 06/07/2024 09:10:21 Social History Question Answer Notes LastModified by [employer] Details LastModified Time Tobacco Smoking Status [facility] 14:03:10 What Is Your Level Of Caffeine Consumption? Occasional Information not available 02/15/2022 What Was The Date Of Your Most Recent Tobacco Screening? 02/15/2022 Information not available 02/15/2022 Has Tobacco Cessation Counseling Been Provided? No Information not available 02/15/2022 Have You Recently Traveled Abroad? No Information not available 02/15/2022 Sex: Unknown Functional Status Question Answer Note LastModified by [employer] Details LastModified Time Do you use any illicit or recreational drugs? No Information not available 02/15/2022 Do you or have you ever used any other forms of tobacco or nicotine? No Information not available 02/15/2022 What is your level of alcohol consumption? None Information not available 02/15/2022 Mental Status None recorded. Family History Relationship Description Onset Age of this Age Resolved Age Notes LastModified by Organization Details LastModified Time Father Diabetes mellitus Not available 2021 14:02:05 Father Heart disease Not available 2021 14:02:28 Brother Diabetes mellitus Not available 2021 14:02:05 Brother Family history of malignant neoplasm Not available 2021 14:02:20 Mother Family history of malignant neoplasm Not available 2021 14:02:20 Son Hyperlipidem ia Not available 2021 14:02:43 Medical History Condition Response Gallbladder Disease Y Thyroid Disease Y High Cholesterol Y Diabetes Y Gynecological HistoryNo gynecological history recorded. Obstetrics History GPAL:G 0 P 0 0 0 0 Past Encounters Encounter ID Performer Location Encounter Start Date Encounter Closed Date Diagnosis/Indication Diagnosis SNOMED-CT Code Diagnosis ICD10 Code Diagnosis Note [id number] CONNOR MOSLEY DO [facility] [address] [place] [address] 1 02/15/2022 13:50:18 02/15/2022 15:08:27 Uncontrolled type 2 diabetes mellitus 973166401 E11.65 Essential hypertension 64590686 I10 Hyperlipidemia 80843942 E78.5 Diabetic p eripheral neuropathy 535608907 E11.40 Hypercalcemia 59516917 E 83.52 Hypothyroidism 41374989 E03.9 [id number] CONNOR MOSLEY [facility] [address] [place] [address] 1 03/29/2022 12:12:59 03/29/2022 13:50:50 Type 2 diabetes mellitus 52376144 E11.65 Diabetic p eripheral neuropathy 512919015 E11.40 Hyperlipidemia 67548139 E78.5 Hypothyroidism 27782212 E03.9 Essential hypertension 89183578 I10 [id number] CONNOR MOSLEY [facility] [address] [place] [address] 1 06/01/2022 14:26:48 06/01/2022 16:23:51 Type 2 diabetes mellitus 41197130 E11.65 [id number] KURT PEACE MD [facility] [address] [place] [address] 1 10/31/2022 13:03:09 10/31/2022 13:51:53 Uncontrolled type 2 diabetes mellitus 712268897 E11.65 A1c in the office today is significan tly up to 9.5 from 7.5Random point-of-c are blood glucose of 266 Goal A1c less than 7% Significan tly worsening glycemic control i.e. dietary indiscreti on per patient Counseled about the importance of bringing her glucose meter with her to the office, but she stated that she did not bring her meter because she did not check her blood sugar knowing its going to be high. I had a lengthy discussion with patient about the deleteriou s consequenc es of uncontroll ed hyperglyce francisco in the form of microvascu lar complicati ons such as diabetic retinopath y, diabetic nephropath y, diabetic neuropathy and macrovascu lar complicati ons such as coronary artery disease, peripheral arterial disease and stroke. I had a lengthy discussion with patient about the importance of dietary carbohydra te consistenc y and restrictio n and not to exceed 45 g of carbohydra te per meal and 15-30 g per snack if needed.In the office today She declined referral to medical nutrition therapy Decline to increase her Ozempic therapy Agreed to increase her Toujeo to 36 units every morning She will continue same dose of metformin and Ozempic/Fa rxiga Check blood glucose once daily and bring glucose meter with her next visit Up-to-date with diabetic dilated eye exam i.e. does not remember the name of her ophthalmol ogist. She will call our office back to obtain a copy of his diabetic dilated eye exam Recently had laboratory work-up at her PCP Obtain a copy of her test results from her PCP Dr. Echeverria [id number] KURT PEACE MD [facility] [address] [place] [address] 03/03/2023 12:16:22 03/03/2023 15:15:14 Uncontrolled type 2 diabetes mellitus 544844158 E11.65 A1c in the office today is down to 8.9% from 9.5 from 7.5Random point-of-c are blood glucose of 171Goal A1c less than 7% Improved but is still significan t above goal glycemic controlI had a discussion with patient about the deleteriou s consequenc es of uncontroll ed hyperglyce francisco in the form of microvascu lar complicati ons such as diabetic retinopath y, diabetic nephropath y, diabetic neuropathy and macrovascu lar complicati ons such as coronary artery disease, peripheral arterial disease and stroke. I had a discussion with patient about the importance of dietary carbohydra te consistenc y and restrictio n and not to exceed 45 g of carbohydra te per meal and 15-30 g per snack if needed.In the office today Previously and today he declined referral to medical nutrition therapyPre viously and today she decline to increase her Ozempic therapyShe will continue current Toujeo to 36 units every morningShe will continue same dose of metformin and Ozempic/Fa rxigaCheck blood glucose once daily and bring glucose meter with her next visitUp-to -date with diabetic dilated eye examShe is well aware of deleteriou s complicati ons related to uncontroll ed diabetes and preferred to stay on the same regimen at present. Patient verbalized understand ing and agreed with the above mentioned plan of care. [id number] KURT PEACE MD [facility] [address] [place] [address] 08/22/2023 10:32:22 08/22/2023 13:22:12 Uncontrolled type 2 diabetes mellitus 722597044 E11.65 A1c in the office today is down to 8.9% from 9.5 from 7.5Random point-of-c are blood glucose of 171Goal A1c less than 7% Improved but is still significan t above goal glycemic controlI had a discussion with patient about the deleteriou s consequenc es of uncontroll ed hyperglyce francisco in the form of microvascu lar complicati ons such as diabetic retinopath y, diabetic nephropath y, diabetic neuropathy and macrovascu lar complicati ons such as coronary artery disease, peripheral arterial disease and stroke. I had a discussion with patient about the importance of dietary carbohydra te consistenc y and restrictio n and not to exceed 45 g of carbohydra te per meal and 15-30 g per snack if needed.In the office today Previously and today he declined referral to medical nutrition therapyDis continue OzempicSta rt log 8 units before your first meal and 12 units before your second mealIncrea se Toujeo to 44 units every dayContinu e metformin and FarxigaChe ck blood glucose upon awakening and alternatin g between before dinner and at bedtimeGoa l blood glucoseBef ore meals and upon awakenin-1301-2 After meals or at bedtime: < 1803 months average [goal A1c] < 7Sent to our office your upcoming diabetic dilated eye exam reportLabs and urine check today Up-to-date with diabetic dilated eye examShe is well aware of deleteriou s complicati ons related to uncontroll ed diabetes and preferred to stay on the same regimen at present.Telly quick verbalized understand ing and agreed with the above mentioned plan of care. Mixed hyperlipidemia 267 361744 E78.2 Continue current atorvastat in, Vascepa and gemfibrozi l Fasting lipid panel and direct LDL today Counseled about the importance of low-choles terol, low saturated fat and simple carbohydra te diet Hypothyroidism 45523782 E03.9 Appears a clinically euthyroid Continue current levothyrox ine therapy same dose Patient was instructed on the appropriat e method of levothyrox in administra tion to be taken every a.m. on an empty stomach as new food, drinks or other medication s for at least 30 minutes. PPI and calcium -containin g preparatio ns is preferred to be given at least of her hours before or after levothyrox in therapy.Fu rther adjustment as appropriat e Peripheral neuropathy due to type 2 diabetes mellitus [id number] 107 E11.42 Symptoms consistent with sensory peripheral neuropathy 10 g monofilame nt testing showed mildly diminished sensations Diabetes care discussed with patient todayPatie nt verbalized understand ing and agreed with the above mentioned plan of care. [id number] KURT PEACE MD [facility] [address] [place] [address] 11/28/2023 09:50:29 11/28/2023 11:37:26 Uncontrolled type 2 diabetes mellitus 401590490 E11.65 A1c in the office today is up to 10.8% from 8.9% from 9.5 from 7.5Random point-of-c are blood glucose of 131Goal A1c less than 7% Significan tly worsening glycemic control. Time in target range of only 11% on her sensor and 89% above 180.I had a discussion with patient about the deleteriou s consequenc es of uncontroll ed hyperglyce francisco in the form of microvascu lar complicati ons such as diabetic retinopath y, diabetic nephropath y, diabetic neuropathy and macrovascu lar complicati ons such as coronary artery disease, peripheral arterial disease and stroke. I had a discussion with patient about the importance of dietary carbohydra te consistenc y and restrictio n and not to exceed 45 g of carbohydra te per meal and 15-30 g per snack if needed.In the office today Further increase Humalog to 12 units before first meal and 14 units before second mealContin ue Toujeo to 44 units every dayContinu e metformin and FarxigaChe ck blood glucose upon awakening and alternatin g between before dinner and at bedtimeGoa l blood glucoseBef ore meals and upon awakenin-1301-2 After meals or at bedtime: < 1803 months average [goal A1c] < 7Up-to-nicholas e with diabetic dilated eye exam report Patient verbalized understand ing and agreed with the above mentioned plan of care. [id number] KURT PEACE MD [facility] [address] [place] [address] 03/01/2024 08:31:11 03/01/2024 09:50:04 Uncontrolled type 2 diabetes mellitus 028899686 E11.65 A1c in the office today down to 9.2% from 10.8% from 8.9% from 9.5 from 7.5Random point-of-c are blood glucose of 207Goal A1c less than 7% Improved but still significan t above goal glycemic control. Time in target range and her sensor is only 4% No hypoglycem ia We had a detailed discussion about her sensor data and the importance of adherence to her insulin regimen as well as strict carbohydra te restrictio n and consistenc y. I had a discussion with patient about the deleteriou s consequenc es of uncontroll ed hyperglyce francisco in the form of microvascu lar complicati ons such as diabetic retinopath y, diabetic nephropath y, diabetic neuropathy and macrovascu lar complicati ons such as coronary artery disease, peripheral arterial disease and stroke. I had a discussion with patient about the importance of dietary carbohydra te consistenc y and restrictio n and not to exceed 45 g of carbohydra te per meal and 15-30 g per snack if needed.In t she does not think that she needs to see a dietitian but she he office today Further increase Humalog to 16 units before first meal and 18 units before second mealContin ue Toujeo to 44 units every dayContinu e metformin and FarxigaChe ck blood glucose upon awakening and alternatin g between before dinner and at bedtimeGoa l blood glucoseBef ore meals and upon awakenin-1301-2 After meals or at bedtime: < 1803 months average [goal A1c] < 7Up-to-nicholas e with diabetic dilated eye exam report Patient verbalized understand ing and agreed with the above mentioned plan of care. [id number] KURT PEACE MD [facility] [address] [place] [address] 06/07/2024 08:50:46 06/08/2024 04:19:41 Uncontrolled type 2 diabetes mellitus 464945107 E11.65 A1c in the office today down to 9.2% from 10.8% from 8.9% from 9.5 from 7.5Random point-of-c are blood glucose of 230Goal A1c less than 7% Worsening glycemic controlWe had a detailed discussion about her sensor data and the importance of adherence to her insulin regimen as well as strict carbohydra te restrictio n and consistenc y. I had a discussion with patient about the deleteriou s consequenc es of uncontroll ed hyperglyce francisco in the form of microvascu lar complicati ons such as diabetic retinopath y, diabetic nephropath y, diabetic neuropathy and macrovascu lar complicati ons such as coronary artery disease, peripheral arterial disease and stroke. I had a discussion with patient about the importance of dietary carbohydra te consistenc y and restrictio n and not to exceed 45 g of carbohydra te per meal and 15-30 g per snack if needed.In t she does not think that she needs to see a dietitian but she he office today Start Ozempic 0.25 mg subcu weekly for 4 weeks to be increased to a higher dose of 0.5 mg subcu weekly thereafter Benefits and side effects including but not limited to increased risk of gastrointe stinal side effects such as nausea, vomiting, diarrhea or constipati on, rare side effect such as acute pancreatit is discussed with patient. He has no personal or family history of medullary thyroid cancer or multiple endocrine neoplasia type IIProvided with a 6-week free medical samplePati ent verbalized understand ing and agreed with the above mentioned plan of care.Rk litae metformin and FarxigaChe ck blood glucose upon awakening and alternatin g between before dinner and at bedtimeGoa l blood glucoseBef ore meals and upon awakenin-1301-2 After meals or at bedtime: < 1803 months average [goal A1c] < 7Up-to-nicholas e with diabetic dilated eye exam report Patient verbalized understand ing and agreed with the above mentioned plan of care. Peripheral neuropathy due to type 2 diabetes mellitus 0127106584 107 E11.42 Symptoms consistent with sensory peripheral neuropathy 10 g monofilame nt testing showed mildly diminished sensations Diabetes care discussed with patient todayPatie nt verbalized understand ing and agreed with the above mentioned plan of care. Mixed hyperlipidemia 267 134929 E78.2 Continue current atorvastat in, Vascepa and gemfibrozi l Counseled about the importance of low-choles terol, low saturated fat and simple carbohydra te diet Patient verbalized understand ing and agreed with the above mentioned plan of care. Hypothyroidism 91658375 E03.9 Appears a clinically euthyroidL ast TSH of 0.749Conti nue current levothyrox ine therapy same dosePatien t was instructed on the appropriat e method of levothyrox in administra tion to be taken every a.m. on an empty stomach as new food, drinks or other medication s for at least 30 minutes. PPI and calcium -containin g preparatio ns is preferred to be given at least of her hours before or after levothyrox in therapy. Patient verbalized understand ing and agreed with the above mentioned plan of care. [id number] KURT PEACE MD [facility] [address] [place] [address] 10/11/2024 10:43:44 10/11/2024 12:16:21 Uncontrolled type 2 diabetes mellitus 402457550 E11.65 A1c in the office today down to 7.9 from 9.2% from 10.8% from 8.9% from 9.5 from 7.5Random point-of-c are blood glucose of 165Goal A1c less than 7% Amended patient on improved glycemic control. I had a discussion with patient about the deleteriou s consequenc es of uncontroll ed hyperglyce francisco in the form of microvascu lar complicati ons such as diabetic retinopath y, diabetic nephropath y, diabetic neuropathy and macrovascu lar complicati ons such as coronary artery disease, peripheral arterial disease and stroke. I had a discussion with patient about the importance of dietary carbohydra te consistenc y and restrictio n and not to exceed 45 g of carbohydra te per meal and 15-30 g per snack if needed.In t she does not think that she needs to see a dietitian but she he office today Continue current insulin regimenCon tinue metformin and FarxigaChe ck blood glucose upon awakening and alternatin g between before dinner and at bedtimeGoa l blood glucoseBef ore meals and upon awakenin-1301-2 After meals or at bedtime: < 1803 months average [goal A1c] < 7Up-to-nicholas e with diabetic dilated eye exam report Mixed hyperlipidemia 267 473192 E78.2 Continue current atorvastat in, Vascepa and gemfibrozi l Counseled about the importance of low-choles terol, low saturated fat and simple carbohydra te diet Patient verbalized understand ing and agreed with the above mentioned plan of care. Hypothyroidism 97464913 E03.9 Appears a clinically euthyroidL ast TSH of 0.749Conti nue current levothyrox ine therapy same dosePatien t was instructed on the appropriat e method of levothyrox in administra tion to be taken every a.m. on an empty stomach as new food, drinks or other medication s for at least 30 minutes. PPI and calcium -containin g preparatio ns is preferred to be given at least of her hours before or after levothyrox in therapy. Patient verbalized understand ing and agreed with the above mentioned plan of care.TSH and free T4 today Further adjustment as appropriat e Peripheral neuropathy due to type 2 diabetes mellitus 1569231120 107 E11.42 Symptoms consistent with sensory peripheral neuropathy 10 g monofilame nt testing showed mildly diminished sensations Diabetes care discussed with patient today . Chronic ki dney disease due to type 2 diabetes mellitus 6366508024 08 E11.22 Reported elevated kidney function test during recent lab done in the hospital Her diuretic dose was decreased Recheck BMP 3 months follow-up Patient verbalized understand ing and agreed with the above mentioned plan of care. [id number] IRA MEJIA APRN [facility] [address] [place] [address] 01/16/2025 11:07:48 01/16/2025 13:05:32 Uncontrolled type 2 diabetes mellitus 162622184 E11.65 In the office today A1c 9.5%, up from 7.9%.Rene baker point-of-c are blood glucose of 144 in the office today.Libia garcia states she stopped taking Farxiga due to cost. Goal A1c is less than 7%Re-discu ssed in detail the consequenc es of uncontroll ed hyperglyce francisco in the form of microvascu lar complicati ons and macrovascu lar complicati ons.Marcellus stein was re-educate d on the importance of dietary carbohydra te consistenc y and restrictio n and not to exceed 45 g of carbohydra te per meal and 15-30 g per snack if needed.Ernesto terated the signs and symptoms of hypoglycem ia, and what to do if patient is effected by it. Recommenda tions:Cont inue metforminC ontinue Toujeo 44 units every morningCon tinue Humalog 16-18 units BID with mealsStart Jardiance 10 mg daily for 4 weeks (samples provided), then increase to 25 mg daily. Patient educated on this medication , how to administer , potential side effects.Di abetic Nutrition consultFol low-up in 1 month Eye exam: Up-to-date 10 g monofilame nt test: RefusesMed ical Nutrition therapy: Consult placed at today's visit Patient states understand ing of the above plan of care and with no questions or concerns at this time. Mixed hyperlipidemia 267 391595 E78.2 Lipid Panel on October 115Choles terol 152Triglyc erides 362HDL 46LDL 34Continue current atorvastat in, Vascepa and gemfibrozi lCounseled about the importance of low-choles terol, low saturated fat and simple carbohydra te dietPatikev t verbalized understand ing and agreed with the above mentioned plan of care. Hypothyroidism 42399752 E03.9 Thyroid panel from September 2024 showed TSH 0.873, and T4 of 1.40Clinic ally euthyroid at today's visit.Curr ently takes Synthroid 50 mcg every morning Instructed on the appropriat e method of thyroid medication administra tion. Take this medication every morning on an empty stomach 30-60 minutes prior to other food, drinks, or medication s. PPIs and calcium-co ntaining preparatio ns are preferred to be given atleast four hours before or after. [id number] IRA MEJIA APRN [facility] [address] [place] [address] 02/13/2025 08:45:16 02/13/2025 10:59:48 Uncontrolled type 2 diabetes mellitus 174378590 E11.65 In the office today A1c 9.3%, down from 9.5%, up from 7.9%.Rene baker point-of-c are blood glucose of 180 in the office today.Libia ent states she stopped taking Farxiga due to cost.Patie nt states she is tolerating this without difficulty . Goal A1c is less than 7%Re-discu ssed in detail the consequenc es of uncontroll ed hyperglyce francisco in the form of microvascu lar complicati ons and macrovascu lar complicati ons.Marcellus t was re-educate d on the importance of dietary carbohydra te consistenc y and restrictio n and not to exceed 45 g of carbohydra te per meal and 15-30 g per snack if needed.Ernesto terated the signs and symptoms of hypoglycem ia, and what to do if patient is effected by it. Recommenda tions:Cont inue metforminC rease Toujeo to 48 units every morning.Co ntinue Humalog 18 units BID with mealsConti nue Jardiance at 25mg dialy.Cont inue Dexcom per PCP (patient to bring Dexcom reader with her to follow-up visit)Foll ow-up in 2 months. Eye exam: Good for diabetic retinopath y as of October 2023, record in chart. Patient states she is going to schedule up-to-date exam.10 g monofilame nt test: Performed today and unremarkab leMedical Nutrition therapy: Consult completed prior to visit today Patient states understand ing of the above plan of care and with no questions or concerns at this time. Mixed hyperlipidemia 267 134961 E78.2 Lipid Panel on October 115Choles terol 152Triglyc erides 362HDL 46LDL 34Continue current atorvastat in, Vascepa and gemfibrozi lCounseled about the importance of low-choles terol, low saturated fat and simple carbohydra te dietPatien t verbalized understand ing and agreed with the above mentioned plan of care. Hypothyroidism 23248391 E03.9 Thyroid panel from September 2024 showed TSH 0.873, and T4 of 1.40Clinic ally euthyroid at today's visit.Shi ritchie takes Synthroid 50 mcg every morning Instructed on the appropriat e method of thyroid medication administra tion. Take this medication every morning on an empty stomach 30-60 minutes prior to other food, drinks, or medication s. PPIs and calcium-co ntaining preparatio ns are preferred to be given atleast four hours before or after. [id number] JAYLIN LUTHER, RD, LD DI[facility] [address] [place] [address] 02/13/2025 08:47:10 02/14/2025 08:15:24 Uncontrolled type 2 diabetes mellitus [id number] E11.65 Health Concerns Section Related Observation LastModified by Organization Detai ls LastModified Time None Recorded Concern Status LastModified by Organization Details LastModified Time None Recorded Advance Directives Directive None Recorded Payers Insurance Date Sequence Insurance Name Policy Number Policy [place] Covered Member ID [place] Member ID Guarantor Name 02/17/2025 1 [employer] (MEDICARE REPLACEMENT/A DVANTAGE - PPO) Chiqui Higueran [id number] Chiqui Paynealen 08/21/2023 1 [place] [id number] 1 Wilbur Lal [id number] Chiqui Paynealen 08/22/2023 2 [place] [id number] 1 Wilbur Lal [id number] Chiqui Higueran Notes Date Note Type Note Provider Name and Address Organization Details Recorded Time 06/07/2024 text/html 63-year-old Cauc female patient with a past medical history as detailed in the problem list significant for hypertension, hyperlipidemia on therapy, primary hypothyroidism on thyroid hormone replacement therapy, uncontrolled type 2 diabetes insulin requiring seen today for 3 months follow-up uncontrolled type 2 diabetes. d previous progress notes for complete history and physicalCurrent regimenToujeo 44 units every day. SMetformin 500 mg 1 tablet twice daily. [Diarrhea with higher doses]Farxiga 10 million 1 tablet every dayHumalog 16 units before breakfast and 18 units before dinnerSelf-monitoring of blood glucose readingsDexcomAGP reportDexcom G7 05/18 - 05/31/2024verage blood glucose 301 Time in range 0% Above 180: 20% Above 2049: 80% Days with CGM data 71%Days with CGM data 93%No hypoglycemia by historyShe denies any polyuria, polydipsia or nausea or vomiting.For hyperlipidemia she takes rosuvastatin 40 mg and gemfibrozil 600 mg twice daily and Vascepa 1 g 2 capsules twice dailyFor hypothyroidism she takes Synthroid 50 mcg every a.m. KRUT PEACE MD [address] [place] [address], [phone], [facility] 06/07/2024 10:34:11 10/11/2024 text/html 64-year-old Cauc female patient with a past medical history as detailed in the problem list significant for hypertension, hyperlipidemia on therapy, primary hypothyroidism on thyroid hormone replacement therapy, uncontrolled type 2 diabetes insulin requiring seen today for 3 months follow-up uncontrolled type 2 diabetes. d previous progress notes for complete history and physicalCurrent regimenToujeo 44 units every day.Metformin 500 mg 1 tablet twice daily. [Diarrhea with higher doses]Farxiga 10 million 1 tablet every dayHumalog 16 units before breakfast and 18 units before dinnerOzempic 0.5 mg subcu weekly prescribed but she did not take concerned about the costSelf-monitoring of blood glucose readingsDexcomAGP reportDexcom G7Shtristian is wearing her sensor but she stopped sharing her data with the clinic, did not bring her rec therapist with her to the officeNo hypoglycemia by historyShe denies any polyuria, polydipsia or nausea or vomiting.For hyperlipidemia she takes rosuvastatin 40 mg and gemfibrozil 600 mg twice daily and Vascepa 1 g 2 capsules twice dailyFor hypothyroidism she takes Synthroid 50 mcg every a.m. KURT PEACE MD [address] [place] [address], [phone], [facility] 10/11/2024 12:14:40 01/16/2025 text/html Chiqui is a 64-yea r-old female who presents office today for follow-up on diabetes management. Patient states she has noticed an increase in blood glucose levels since stopping farxiga. Patient states she stopped this medication due to cost. She denies any symptoms or episodes of hypoglycemia and voices no other concerns at this time. IRA MEJIA APRN [address] [place], [address], [facility] 01/16/2025 13:07:12 02/13/2025 text/html Chiqui is a 64-yea r-old female who presents office to follow-up on diabetes management. Patient that she is tolerating Jardiance without difficulty and she had dietitian appointment prior to her visit with me today. IRA MEJIA, RADHA [address] [place], [address], [facility] 02/13/2025 10:46:22 OBGyn Episode No OBEpisode recorded.
--- OUTSIDE RECORDS SUMMARY | 2025-03-21 03:01 | XMS_ITS | Clinical Summary ---
Author Organization Healthcare Address [address] [id number] Care Team Providers Care Outdoor Recreation Specialist Name Role Phone Kobi Worthington MD Primary Care Provider [phone] Family History Medical History Relation Name Comments Heart attack Father Other cancer Mother Relation Name Status Comments Father Mother Social History Tobacco Use Types Packs/Day Years Used Date Smoking Tobacco: Former Alcohol Use Standard Drinks/Week Comments No 0 (1 standard drink = 0.6 oz pur e alcohol) Comments Unknown Sex and Gender Information Value Date Recorded Sex Assigned at Not on file Legal Sex Female 6:07 PM EDT Gender Identity Not on file Sexual Orientation Not on file Last Filed Vital Signs Vital Sign Reading Time Taken Comments Blood Pressure 109/69 11/16/2017 10:39 AM EST Pulse 68 11/16/2017 10:39 AM EST Temperature 36.6 C (97.8 F) 11/16/2017 10:39 AM EST Respiratory Rate - - Oxygen Saturation - - Inhaled Oxygen Concentration - - Weight 75.9 kg (167 lb 5.3 oz) 11/16/2017 10:39 AM EST Height 157.5 cm (5' 2 ) 11/16/2017 10:39 AM EST Body Mass Index 30.6 11/16/2017 10:39 AM EST Plan of Treatment Not on file Care Teams Outdoor Recreation Specialist Relationship Specialty Start Date End Date Kobi Worthington MD [address] [place] [address] PCP - General 01/29/21
--- OUTSIDE RECORDS SUMMARY | 2025-03-21 03:01 | XMS_ITS | Continuity of Care Document ---
Author Organization [facility], ENDOCRINOLOGY Address [address] [place] [address] Care Team Providers Care Body Shop Floorperson Name Role Phone Yaya ECHEVERRIA Referring Provider Assessment No assessment recorded. Plan of Treatment Reminders Order Date Submit Date Provider Last Modified By Organization Details Last Modified Time Details Appointments MNT FOLLOW-U P 2024 09:30A M YA LUTHER RD Not available Not available Not available RECHECK 2024 10:30A M JAMILA BAKER DISPLAY MAKER Not available Not available Not available Lab glucose, fingerst ick, blood [address] [facility], [address] [place] [address], [phone], 02/13/2025 10:45:48 hemoglob in A1C, fingerst ick [address] [facility], [address] [place] [address], [phone], 02/13/2025 10:45:48 Referral None recorded . Procedures None recorded . Surgeries None recorded . Imaging None recorded . Medication Orders Jardianc e 25 mg tablet [address] [facility], [address], [address], 02/13/2025 10:45:48 Novolog FlexPen U-100 Insulin aspart 100 unit/mL (3 mL) subcutan eous 2024 025 [email or web address] [facility], [address] [place] [address], [address], 02/13/2025 10:45:48 Alexandra Lawrence U-300 Insulin 300 unit/mL (1.5 mL) subcutan eous pen 2024 025 [email or web address] [facility], [address] [facility], [place], [address], 02/13/2025 10:45:48 Patient TargetsNo targets recorded. Patient InstructionsNo instructions recorded. Reason for Referral None Reported. Results Created Date Observation Date Name Description Value Unit Range Abnormal Flag Note LastModifiedBy Organization Detail LastModifiedTime 02/14/2002/13/2025 hemog lobin A1C, finge rstic k hemoglobin A1C % 9.3 % 4.0 - 5.6 Not Available [facility] [address] [place], [address], 02/12/2025 10:20:34 02/14/2002/13/2025 gluco se, finge rstic k, blood glucose, fingerstick 180 mg/dL 70 - 100 Not Available [facility] [address] [place], [address], 02/12/2025 10:20:34 Result Notes None recorded. Problems Name Problem SNOMED Code Status Onset Date Resolution Date Notes Provider Name and Address Organization Details Recorded Time Transient cerebral ischemia 008559287 Active 2015 Status: Active Not Available [facility] 6 04:05:36 Clinical finding Active 2015 From Automated Load;Provi david: Nathan Patel;Stat us: Active Not Available [employer] 6 04:05:36 Sequelae of neurologi sarah disorders 050979047 Active 2015 From Automated Load;Provi david: Nathan Patel;Stat us: Active Not Available [facility] 6 04:05:36 Problem Notes None recorded. Procedures Surgical History Date Name Laterality Status Provider Name and Address Organization Details Recorded Time 02/14/20 MNT Initial Visit completed YA LUTHER RD, LD [address] [place], [address], [facility] 02/14/2025 08:14:36 Hysterectomy/revise vagina completed [facility] 02/15/2022 14:03:41 cholecystectomy completed [facility] 02/15/2022 14:03:51 section completed [facility] 02/15/2022 14:04:02 Imaging Results None recorded. [...] Not Available Not Available Not Avai lable Soliqua 100/33 100 unit-33 mcg/mL subcutane ous [...] Updated DateTime 02/13/2025 157.48 cm 31.3 kg/m2 05758.01 g YA LUTHER, RD, LD [address] [place], [address], [facility] 02/13/2025 09:18:33 Date Recorded Body height Body mass index (BMI) Body weight Systolic And Diastolic Provider Name and Address Organization Details Last Updated DateTime 02/13/2025 157.48 cm 30.7 kg/m2 18853.08 g 118/60 mm[Hg] Jose Simmons [facility] 02/13/2025 10:20:52 Social History Question Answer Notes LastModified by Organizat ion Details LastModified Time Tobacco Smoking Status Former Smoker Lynette Martin [facility] 02/15/2022 14:03:10 What Is Your Level Of Caffeine Consumption? Occasional Information not available 02/15/2022 What Was The Date Of Your Most Recent Tobacco Screening? 02/15/2022 Information not available 02/15/2022 Has Tobacco Cessation Counseling Been Provided? No Information not available 02/15/2022 Have You Recently Traveled Abroad? No Information not available 02/15/2022 Sex: Unknown Functional Status Question Answer Note LastModified by Organizat ion Details LastModified Time Do you use any [...] available 2021 14:02:43 Medical History Condition Response Thyroid Disease Y High Cholesterol Y Gallbladder Disease Y Diabetes Y Gynecological HistoryNo gynecological history recorded. Obstetrics History GPAL:G 0 P 0 0 0 0 Past Encounters Encounter ID Performer Location Encounter Start Date Encounter Closed Date Diagnosis/Indication Diagnosis SNOMED-CT Code Diagnosis ICD10 Code Diagnosis Note [id number] JAMILA BAKER APRN ENDOCRINO [facility] [address] [place] [address] 01/16/2025 11:07:48 01/16/2025 13:05:32 Uncontrolled type 2 diabetes mellitus 221036880 E11.65 In the office today A1c 9.5%, [...] concerns at this time. Mixed hyperlipidemia 267 909688 E78.2 Lipid Panel on October 115Choles terol 152Triglyc erides 362HDL 46LDL 34Continue current atorvastat in, Vascepa and gemfibrozi lCounseled about the importance of low-choles terol, low saturated fat and simple carbohydra te dietPatikev t verbalized understand ing and agreed with the above mentioned plan of care. Hypothyroidism 04817703 E03.9 Thyroid panel from September 2024 showed TSH 0.873, and T4 of 1.40Clinic ally euthyroid at today's visit.Shi ently takes Synthroid 50 mcg every morning Instructed on the appropriat e method of thyroid medication administra tion. Take this medication every morning on an empty stomach 30-60 minutes prior to other food, drinks, or medication s. PPIs and calcium-co ntaining preparatio ns are preferred to be given atleast four hours before or after. [id number] JAMILA BAKER APRN END[facility]CR[facility] [address] [place] [address] 02/13/2025 08:45:16 02/13/2025 10:59:48 Uncontrolled type 2 diabetes mellitus 354280274 E11.65 In the office today A1c 9.3%, [...] concerns at this time. Mixed hyperlipidemia 267 156369 E78.2 Lipid Panel on October 115Choles terol 152Triglyc erides 362HDL 46LDL 34Continue current atorvastat in, Vascepa and gemfibrozi lCounseled about the importance of low-choles terol, low saturated fat and simple carbohydra te dietMarcellus stein verbalized understand ing and agreed with the above mentioned plan of care. Hypothyroidism 74709718 E03.9 Thyroid panel from September 2024 showed [...] given atleast four hours before or after. [id number] YA LUTHER, RD, LD [facility] [address] [place] [address] 02/13/2025 08:47:10 02/14/2025 08:15:24 Uncontrolled type 2 diabetes mellitus 395316196 E11.65 Health Concerns Section Related Observation LastModified by Organization Detai ls LastModified Time None Recorded Concern Status LastModified by Organization Details LastModified Time None Recorded Payers Encounter Date Sequence Insurance Name Policy Number Policy [place] Covered Member ID [place] Member ID Guarantor Name 02/13/2025 1 [employer] (MEDICARE REPLACEMENT/A DVANTAGE - PPO) Chiqui Lal [id number] Chiqui Lal Notes Date Note Type Note Provider Name and Address Organization Details Recorded Time 02/13/2025 text/html Chiqui is a 64-year-old female who presents office to follow-up on diabetes management. Patient that she is tolerating Jardiance without difficulty and she had dietitian appointment prior to her visit with me today. JAMILA BAKER, DISPLAY MAKER [address] [place], [address], [facility] 02/13/2025 10:46:22 OBGyn Episode No OBEpisode recorded.
--- OUTSIDE RECORDS SUMMARY | 2025-03-21 03:01 | XMS_ITS | Continuity of Care Document ---
Author Organization [facility], DIETITIAN SERVICES Address [address] [place] [address] Care Team Providers Care Doula Name Role Phone Yaya ECHEVERRIA Referring Provider Assessment No assessment recorded. Plan of Treatment Reminders Order Date Submit Date Provider Last Modified By Organization Details Last Modified Time Details Appointments MNT FOLLOW-U P 2024 09:30A M YA LUTHER RD Not available Not available Not available RECHECK 2024 10:30A M JAMILA BAKER APRN Not available Not available Not available Lab None recorded . Referral None recorded . Procedures None recorded . Surgeries None recorded . Imaging None recorded . Medication Orders None recorded . Patient TargetsNo targets recorded. Patient InstructionsNo instructions recorded. Reason for Referral None Reported. Problems Name Problem SNOMED Code Status Onset Date Resolution Date Notes Provider Name and Address Organization Details Recorded Time Transient cerebral ischemia 981954828 Active 2015 Status: Active Not Available [facility] 6 04:05:36 Clinical finding Active 2015 From Automated Load;Provi david: Nathan Patel;Stat us: Active Not Available [employer] 6 04:05:36 Sequelae of neurologi sarah disorders 942762106 Active 2015 From Automated Load;Provi david: Nathan Patel;Stat us: Active Not Available [facility] 6 04:05:36 Problem Notes Documentation Provider Name and Address Organization Details Recorded Time Mechanist/dietitian Consult Note : [facility] [address] [place] [address] Chiqui Lal 64yo F 1960 #[id number] __RESTYLEDFOOTER__ [facility] [address] [place] [address] , Date: 02/14/2025RE: Chiqui Lal, : 1960, PT ID #[id number] Ht: 5 ft 2 in Wt: 171 lbs 3.2 oz With clothes BMI: 31.3 Medications Reviewed Medications NameDate Source DEXCOM G7 SENSOR DEVICECHANGE SENSOR EVERY 10 DAYS12/20/24 renewed KURT PEACE MD gemfibroziL 600 mg tabletTake 1 tablet(s) twice a day by oral route.02/15/22 entered Lynette Martin Jardiance 25 mg tabletTake 1 tablet(s) every day by oral route for 90 days.02/13/25 prescribed JAMILA BAKER APRN Maxzide-25mg 37.5 mg-25 mg tabletTake 1 tablet(s) every day by oral route.02/15/22 entered Lynette Martin metFORMIN 500 mg tabletTake 1 tablet by mouth twice daily02/12/25 renewed JAMILA BAKER APRN metoprolol tartrate 50 mg tabletTake 1 tablet(s) twice a day by oral route.02/15/22 entered Lynette Martin Multi-Vitamin HP/Yvliklay44/31/22 entered Lynette Martin NovoLOG Flexpen U-100 Insulin aspart 100 unit/mL (3 mL) gintosjyqrql36-21 units twice daily before meal +2 units to prime the pen02/13/25 prescribed JAMILA BAKER APRN OneTouch Delica Lancets 33 gauge3 times daily02/15/22 entered Taya Mouser OneTouch Verio test strips3 times daily06/09/23 prescribed KURT PEACE MD rosuvastatin 40 mg tabletTake 1 tablet(s) every day by oral route.02/15/22 entered Lynette Martin Synthroid 50 mcg cnvtdvGnrel46/05/16 entered ángelai.246 Toujeo Max U-300 SoloStar 300 unit/mL (3 mL) subcutaneous insulin penINJECT 44 SUBCUTANEOUSLY ONCE DAILY AFTER MEALS (MAX FOR 45 UNITS PER DAY)12/20/24 renewed KURT PEACE MD Alexandra Lawrence U-300 Insulin 300 unit/mL (1.5 mL) subcutaneous penInject 48 unit(s) every day by subcutaneous route in the morning for 90 days.02/13/25 prescribed JAMILA BAKER APRN Vascepa 1 gram capsuleTake 2 capsule(s) [...] Initial Visit Reason for visit:Diabetes Referring Physician: JAMILA BAKER APRN, NPNutritional Assessment: Food and Nutrition Intake: Meal/Snack Pattern: Pt reports meals are prepared at home by self. Pt reports grazing habits; with ~1 meal/ day. Pt reports frequency of eating out approximately 6+ times a week from sitdown restaurants ( [employer], Kisw[place]) Pt reports biggest challenge as sweet cakes, [...] Food Intolerance/Allergies: No known food allergies/intolerances Weight body coverer the past year: No Physical Activity Level: [...] Assessment/Plan1.Uncontroll ed type 2 diabetes mellitus with fpzipapcytxnkO86.65: Type 2 diabetes mellitus with hyperglycemia Return to Office JAMILA BAKER APRN for RECHECK at ENDOCRINOLOGY [facility] on 04/10/2025 at 10:[address], LD for MNT FOLLOW-UP at DIETITIAN SERVICES [facility] on 04/10/2025 at 09:30 AM JAMILA BAKER APRN [address] [place], [address], [facility] 02/20/2025 07:16:41 Procedures Surgical History Date Name Laterality Status Provider Name and Address Organization Details Recorded Time 02/14/20 MNT Initial Visit completed YA LUTHER RD, JANET [address] [place], [address], [facility] 02/14/2025 08:14:36 Hysterectomy/revise vagina completed [facility] 02/15/2022 14:03:41 cholecystectomy completed [facility] 02/15/2022 14:03:51 section completed [facility] 02/15/2022 14:04:02 Imaging Results None recorded. Procedure [...] Updated DateTime 02/13/2025 157.48 cm 31.3 kg/m2 91467.[address], LD [address] [place], [address], [facility] 02/13/2025 09:18:33 Date Recorded Body height Body mass index (BMI) Body weight Systolic And Diastolic Provider Name and Address Organization Details Last Updated DateTime 02/13/2025 157.48 cm 30.7 kg/m2 24703.08 g 118/60 mm[Hg] Jose Simmons [facility] 02/13/2025 10:20:52 Social History Question Answer Notes LastModified by [employer] Details LastModified Time Tobacco Smoking Status Former Smoker Lynette Martin fernando, [facility] 02/15/2022 14:03:10 What Is Your Level Of Caffeine Consumption? Occasional Information not available 02/15/2022 What Was The Date Of Your Most Recent Tobacco Screening? 02/15/2022 Information not available 02/15/2022 Has Tobacco Cessation Counseling Been Provided? No Information not available 02/15/2022 Have You Recently Traveled Abroad? No Information not available 02/15/2022 Sex: Unknown Functional Status Question Answer Note LastModified by [employer] Details LastModified Time Do you use any [...] SNOMED-CT Code Diagnosis ICD10 Code Diagnosis Note [id number] JAMILA BAKER APRN ENDOCRINO [facility] [address] [place] [address] 01/16/2025 11:07:48 01/16/2025 13:05:32 Uncontrolled type 2 diabetes mellitus 101713284 E11.65 In the office today A1c 9.5%, up from 7.9%.Rene olivia point-of-c are blood glucose of 144 in [...] concerns at this time. Mixed hyperlipidemia 267 611252 E78.2 Lipid Panel on October 115Choles terol 152Triglyc erides 362HDL 46LDL 34Continue current atorvastat in, Vascepa and gemfibrozi lCounseled about the importance of low-choles terol, low saturated fat and simple carbohydra te dietMarcellus sarita verbalized understand ing and agreed with the above mentioned plan of care. Hypothyroidism 15364354 E03.9 Thyroid panel from September 2024 showed [...] given atleast four hours before or after. [id number] JAMILA BAKER APRN ENDOCRINO [facility] [address] [place] [address] 02/13/2025 08:45:16 02/13/2025 10:59:48 Uncontrolled type 2 diabetes mellitus 143123023 E11.65 In the office today A1c 9.3%, down from 9.5%, up from 7.9%.Rene baker point-of-c are blood glucose of 180 in the office today.[place] ent states she stopped taking Farxiga due to cost.Osbaldo nt states she is tolerating this without [...] concerns at this time. Mixed hyperlipidemia 267 623832 E78.2 Lipid Panel on October 115Choles terol 152Triglyc erides 362HDL 46LDL 34Continue current atorvastat in, Vascepa and gemfibrozi lCounseled about the importance of low-choles terol, low saturated fat and simple carbohydra te dietPatien t verbalized understand ing and agreed with the above mentioned plan of care. Hypothyroidism 49273079 E03.9 Thyroid panel from September 2024 showed [...] given atleast four hours before or after. [id number] YA LUTHER, RD, LD DIETITIAN SERVICES [address] [place] [address] 02/13/2025 08:47:10 02/14/2025 08:15:24 Uncontrolled type 2 diabetes mellitus 525075611 E11.65 Health Concerns Section Related Observation LastModified by Organization Detai ls LastModified Time None Recorded Concern Status LastModified by Organization Details LastModified Time None Recorded Payers Encounter Date Sequence Insurance Name Policy Number Policy [place] Covered Member ID [place] Member ID Guarantor Name 02/13/2025 1 [employer] (MEDICARE REPLACEMENT/A DVANTAGE - PPO) Chiqui Lal [id number] Chiqui Lal Notes Date Note Type Note Provider Name and Address Organization Details Recorded Time 02/13/2025 text/html Chiqui is a 64-year-old female who presents office to follow-up on diabetes management. Patient that she is tolerating Jardiance without difficulty and she had dietitian appointment prior to her visit with me today. JAMILA BAKER, SKYLIGHTS ASSEMBLER [address] [place], [address], [facility] 02/13/2025 10:46:22 OBGyn Episode No OBEpisode recorded.
[2025-03-21] MEDS: ASPIRIN 81MG CHEWABLE TABLET 324 MG PO (03:10)
[2025-03-21] MEDS: NITROGLYCERIN 0.4MG SL TABLET 0.4 MG SL (03:10)
--- NOTE | 2025-03-21 03:12 | XR_ITS ---
PROCEDURE INFORMATION: Exam: XR Chest Exam date and time: 03/21/2025 3:17 AM Age: 64 years old Clinical indication: Pain; Chest pressure; Additional info: Chest pain TECHNIQUE: Imaging protocol: Radiologic exam of the chest. Views: 1 view. COMPARISON: CR XR CHEST 2V 07/26/2024 5:28 AM FINDINGS: Lungs: Unremarkable. No consolidation. Pleural spaces: Unremarkable. No pleural effusion. No pneumothorax. Heart/Mediastinum: Unremarkable. No cardiomegaly. Bones/joints: Unremarkable. IMPRESSION: No acute findings.
[2025-03-21 03:20] LABS: Hematocrit 43.0 % (37.0-47.0); Hemoglobin 14.5 g/dL (12.2-16.2); Immature Granulocytes % 0.1 %; Mean Corpuscular HGB Conc 33.7 g/dL (31.8-35.4); Mean Corpuscular Hemoglobin 28.4 pg (27.0-31.2); Mean Corpuscular Volume 84.1 fl (81-99); Nucleated Red Blood Cells % 0 %; Platelet Count 258 K/mm3 (142-424); Red Blood Count 5.11 M/mm3 (4.20-5.40); Red Cell Distribution Width-SD 37.7 fL; White Blood Count 9.5 K/mm3 (4.8-10.8)
[2025-03-21 03:27] LABS: Albumin Level 5.0 g/dl (3.5-5.0); Chloride 101 mmol/L (98-107)
[2025-03-21 03:28] LABS: Potassium 4.1 mmoL/L (3.5-5.1); Sodium 139 mmol/L (136-145)
[2025-03-21 03:30] LABS: Alanine Aminotransferase 26 U/L (12-78); Albumin/Globulin Ratio 1.6 (1.1-1.8); Alkaline Phosphatase 88 U/L (38-126); Anion Gap 18.1 mEq/L (5-15); Aspartate Amino Transferase 41 U/L (14-36); Bilirubin,Total 0.8 mg/dl (0.2-1.3); Blood Urea Nitrogen 27 mg/dl (7-17); Carbon Dioxide 24 mmol/L (22.0-30.0); Creatinine Clearance Estimated 61 mL/min (50-200); Creatinine,Serum 1.10 mg/dl (0.52-1.04); Estimated Glomerular Filt Rate 50 ml/min (>60); GFR (African American) 60 ML/MIN (>60); Globulin 3.1 g/dL (1.3-3.2); Total Protein,Serum 8.1 g/dl (6.3-8.2)
[2025-03-21 03:31] LABS: Calcium 10.9 mg/dl (8.4-10.2); Glucose 204 mg/dl (74-100)
[2025-03-21 03:35] LABS: D-Dimer 0.63 ug/mL (0.0-0.5)
--- NOTE | 2025-03-21 03:37 | ED_ITS ---
Discharge Plan Disposition Patient Disposition: Admitted Condition: Fair Clinical Impressions Clinical Impression: Chest pain, Unstable angina Discharge ED Provider: Vijaya Mesa General Chief Complaint: Chest Pain Stated Complaint: chest pain Time Seen by Provider: 03/21/25 03:03 Mode of Arrival: Wheelchair Source of Information: Patient Description of Symptoms (Recalled from ER Triage Doc. by RN): Pt presents to ED for CP that started approx 30 minutes ago. Pt states CP radiates to back. Pt had stent placed approx 10 yrs ago. Pt is A&O*4 and rates pain 8/10. History of Present Illness HPI narrative: 64-year-old female with history of prior stroke presents to the ER with chest pain starting 30 minutes prior to arrival. Patient reports stabbing chest pain that changed to pressure radiating to her back. She does have cardiac stents. Patient reports the pain started on 8 out of 10 but has spontaneously improved to a 4 or 5 without intervention. She states when the pain started she was feeling sweaty and nauseous, all of her symptoms are gradually improving. She did not feel lightheaded, no numbness, tingling, or weakness. No vomiting. She denies any tearing sensation or difficulty breathing. No fevers or chills, no other complaints or concerns. Related Data Allergies Allergy/AdvReac Type Severity Reaction Status Date / Time No Known Allergies Allergy Unverified 09/05/17 15:[address] [facility] Disclaimer: The information contained in this section may have been updated after the patient was seen, as this information can be updated by other users. Social History (Updated 07/26/24 @ 06:44 by Vijaya Mesa MD) Smoking Status: Unknown if ever smoked alcohol intake: never current occupational status: other Travel in the last 8 weeks?: None Other Medical History Have you received the Flu Vaccine for this season: No Have you received the Pneumonia Vaccine: No ROS Obtained: Yes Systems reviewed as appropriate & no additional complaints except as documented Per HPI Physical Exam General General appearance: alert and in no apparent distress Comment: Currently not in distress, not diaphoretic Head Head exam: atraumatic and normocephalic Eye Eye exam: Present PERRL and EOMI ENT ENT exam: Present mucous membranes moist Neck Neck exam: Present normal inspection and full ROM Chest Chest inspection: Present symmetric chest wall rise; Absent tenderness Respiratory Respiratory exam: Present normal lung sounds bilaterally and other (96% on room air); Absent respiratory distress, wheezes or stridor Cardiovascular Cardiovascular exam: Present regular rate and normal rhythm Abdominal Exam Abdominal exam: Present soft; Absent distention or tenderness Extremities Exam Extremities exam: Present full ROM; Absent edema Neurological Exam Neurological exam: Present alert and oriented X3; Absent motor sensory deficit Psychiatric Psychiatric exam: Present normal affect and normal mood Skin Skin exam: Present warm and dry HEART Score HEART Score HEART Score assessment performed?: Yes History (anamnesis): Slightly suspicious ECG: Non-specific disturbance Age: >65 years Risk factors: Atherosclerosis history Troponin: </= normal limit HEART Score: 5 Critical Care Critical Care Time Critical Care Time: No Medical Decision Making Medical Records Medical records reviewed: Yes I reviewed the patient's medical records. Mirza Inquiry Pt receiving controlled substance: No Vital Signs Vital Signs: 03/21/25 03:01 03/21/25 03:03 03/21/25 03:14 Temperature 97.9 F Temperature Source Oral Pulse Rate 77 72 Pulse Rate [Left] 86 Respiratory Rate 14 18 Blood Pressure 144/87 H 154/86 H Blood Pressure [Right Arm] 167/95 H Blood Pressure Mean 110 Blood Pressure Mean [Right Arm] 119 02 Sat by Pulse Oximetry 98 96 96 Oxygen Delivery Method Room Air 03/21/25 03:20 03/21/25 03:30 03/21/25 04:00 Temperature Temperature Source Pulse Rate 67 65 65 Pulse Rate [Left] Respiratory Rate 12 11 L Blood Pressure 124/81 132/70 121/67 Blood Pressure [Right Arm] Blood Pressure Mean 95 90 99 Blood Pressure Mean [Right Arm] 02 Sat by Pulse Oximetry 98 97 97 Oxygen Delivery Method 03/21/25 05:23 03/21/25 05:30 03/21/25 06:01 Temperature Temperature Source Pulse Rate 62 60 66 Pulse Rate [Left] Respiratory Rate 11 L 12 17 Blood Pressure 141/69 H 130/67 134/83 Blood Pressure [Right Arm] Blood Pressure Mean Blood Pressure Mean [Right Arm] 02 Sat by Pulse Oximetry 96 96 98 Oxygen Delivery Method Room Air Room Air Room Air Lab Data Labs: Lab Results 03/21/25 03:03: WBC 9.5, RBC 5.11, Hgb 14.5, Hct 43.0, MCV 84.1, MCH 28.4, MCHC 33.7, RDW 12.4, Plt Count 258, MPV 11.0 H, Neut % (Auto) 42.2, Lymph % (Auto) 42.1, [place] % (Auto) 11.7 H, Eos % (Auto) 3.0, Baso % (Auto) 0.9, Neut # (Auto) 4.0, Lymph # (Auto) 4.0, [place] # (Auto) 1.1 H, Eos # (Auto) 0.3, Baso # (Auto) 0.1, D-Dimer 0.63 H, Sodium 139, Potassium 4.1, Chloride 101, Carbon Dioxide 24, Anion Gap 18.1 H, BUN 27 H, Creatinine 1.10 H, Estimated Creat Clear 61, E stimated GFR 50 L, Est GFR ( Amer) 60, Glucose 204 H, Calcium 10.9 H, Total Bilirubin 0.8, AST 41 H, ALT 26, Alkaline Phosphatase 88, Troponin I < 0.01, Total Protein 8.1, Albumin 5.0, Globulin 3.1, Albumin/Globulin Ratio 1.6 03/21/25 03:03 03/21/25 03:03 Response Orders (Tests/Meds): ED MEDICATIONS Generic Name Dose Route Start Last Admin Trade Name Freq PRN Reason Stop Dose Admin Nitroglycerin 0.4 mg 03/21/25 03:06 03/21/25 03:10 Nitroglycerin 0.4mg Sl Tablet SL 04/20/25 03:05 0.4 mg Q5MINP PRN Administration Chest Pain Discontinued Medications Generic Name Dose Route Start Last Admin Trade Name Freq PRN Reason Stop Dose Admin Aspirin 324 mg 03/21/25 03:06 03/21/25 03:10 Aspirin 81mg Chewable Tablet PO 03/21/25 03:07 324 mg ONCE ONE Administration Belladonna Alkaloids 60 ml 03/21/25 04:12 03/21/25 04:14 Belladonna Alkaloids 60 Ml Ml PO 03/21/25 04:13 60 ml ONCE ONE Administration Iopamidol 75 ml 03/21/25 04:27 03/21/25 04:28 Iopamidol-370 (76%);100ml Bottle IV 03/21/25 04:28 75 ml ONCE ONE Administration Sodium Chloride 10 ml 03/21/25 04:27 03/21/25 04:28 Sodium Chloride 0.9% 10ml Syr (Rad Only) IV 03/21/25 04:28 10 ml ONCE ONE Administration ORDERS Category Date Time Status CT angio chest PE protocol Stat Cat Scan 03/21/25 03:42 Completed XR chest portable Stat Exams 03/21/25 03:12 Completed Complete Blood Count Auto Diff Stat Lab 03/21/25 03:03 Completed Comprehensive Metabolic Panel Stat Lab 03/21/25 03:03 Completed D-Dimer Stat Lab 03/21/25 03:03 Completed Troponin I Q3H Lab 03/21/25 06:17 Received Troponin I Q3H Lab 03/21/25 09:15 Ordered Troponin I Stat Lab 03/21/25 03:03 Completed MDM Narrative Medical Decision Narrative: In summary, this 64-year-old female with comorbidities described in the HPI which may not be at goal therapy presents to the emergency department today with chest pain, nausea. On initial evaluation patient is hemodynamically stable, afebrile, GCS 15, no reproducible chest pain on exam, chest pain she reports is spontaneously improving without intervention. Differential diagnosis includes but is not limited to ACS, PE, esophageal spasm, electrolyte abnormality, pneumothorax, pneumonia, among others. Based on these concerns, I ordered serum labs, CT imaging, cardiac workup. ECG personally interpreted demonstrates sinus rhythm with frequent PACs, normal axis, rate 80, normal WA and QTc, no STEMI. Patient received aspirin and nitro initially for treatment. Labs personally reviewed demonstrate no leukocytosis or anemia, normal platelets, D-dimer elevated at 0.63, I considered PE to be as likely is anything else at this time so CTA PE was added to workup. CMP nonactionable, kidney dysfunction improved from previous, initial troponin undetectably low less than 0.01 which is reassuring but serial troponins are indicated. Chest x-ray personally interpreted does not demonstrate acute intrathoracic abnormality, see radiology read for final interpretation, CTA PE personally interpreted does not demonstrate lobar infiltrate or large PE, see radiology read for final interpretation. Interpretation does discuss coronary calcifications and evidence of prior granulomatous disease. Patient was placed in the ED observation at 0400 for continued symptomatic monitoring and serial troponins to rule out evolving VA and preclude unnecessary admission. Patient has been reassessed multiple times. Her pain had initially improved but then was back somewhat, administered GI cocktail with some improvement. She was then reassessed again and her pain was back. She has not had any acute changes. Repeat ECG personally interpreted demonstrates normal sinus rhythm, rate 63, normal axis, normal WA and QTc, no STEMI, no dynamic changes. Since patient is not asymptomatic and has multiple cardiac risk factors including history of cardiac stent and stroke, I believe she should be admitted to the hospital for continued monitoring and management. She is agreeable to this plan. I discussed this case with the hospitalist including lab and imaging findings as well as patient's persistent symptoms. He graciously accepted the patient and the patient was admitted in stable condition. Total time in ED observation: 2 hours 20 minutes
--- NOTE | 2025-03-21 03:42 | CT_ITS ---
PROCEDURE INFORMATION: Exam: CTA Chest With Contrast Exam date and time: 03/21/2025 4:25 AM Age: 64 years old Clinical indication: Abnormal findings; Abnormal diagnostic tests; Elevated d-dimer; Additional info: Cp dimer elevated TECHNIQUE: Imaging protocol: Computed tomographic angiography of the chest with contrast. Exam focused on the arteries. 3D rendering (Not supervised by radiologist): MIP and/or 3D reconstructed images were created by the technologist. Radiation optimization: All CT scans at this facility use at least one of these dose optimization techniques: automated exposure control; mA and/or kV adjustment per patient size (includes targeted exams where dose is matched to clinical indication); or iterative reconstruction. Contrast material: ISOVUE; Contrast volume: 75 ml; Contrast route: INTRAVENOUS (IV); COMPARISON: CR XR CHEST PORTABLE 03/21/2025 3:17 AM FINDINGS: Pulmonary arteries: Normal. No pulmonary emboli. Great vessels off aortic arch: There is an aberrant right subclavian artery which passes posterior to the trachea and esophagus, no aneurysm or obstruction is noted. Aorta: Unremarkable. No aortic aneurysm. No aortic dissection. Lungs: Unremarkable. No consolidation. No masses. Pleural spaces: Unremarkable. No pneumothorax. No pleural effusion. Heart: Mild cardiomegaly. Coronary arteries: Moderate coronary calcium is present. Lymph nodes: Calcified right hilar lymph nodes. Bones/joints: Unremarkable. No acute fracture. Soft tissues: Unremarkable. IMPRESSION: 1. No evidence of pulmonary embolus. 2. Moderate coronary calcium. 3. No evidence of infiltrate or other acute process. 4. Calcified right hilar lymph nodes consistent with prior granulomatous disease. 5. 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
[2025-03-21 03:47] LABS: Troponin I < 0.01 ng/ml (0.00-0.034)
[2025-03-21] MEDS: BELLADONNA ALKALOIDS 60 ML ML PO (04:14)
[2025-03-21] MEDS: IOPAMIDOL-370 (76%);100ML BOTTLE 75 ML IV (04:28)
[2025-03-21] MEDS: SODIUM CHLORIDE 0.9% 10ML SYR (RAD ONLY) 10 ML IV (04:28)
--- NOTE | 2025-03-21 06:18 | ECG_ITS ---
APPROVED REPORT Exam: Resting ECG HR:63 bpm ECG Measurements Heart Rate 63 AXES MO 166 P 74 QRSd 95 QRS 55 QT 416 T 72 QTc 423 Conclusion SINUS RHYTHM NORMAL ECG UNCONFIRMED REPORT Electronically signed by : Lupillo Jain MD 03/21/2025 08:14:04
[2025-03-21 06:50] LABS: Troponin I < 0.01 ng/ml (0.00-0.034)
--- NOTE | 2025-03-21 07:21 | PC.NURSE ---
report called to Cheyenne MORENO
--- NOTE | 2025-03-21 07:42 | PC.NURSE ---
arrived from ED by w/c
--- NOTE | 2025-03-21 09:49 | HMH.PHAINT1 ---
Pharmacy Intervention Comments: MEDICATION RECONCILIATION COMPLETED ON PATIENT USING EXTERNAL FILL HISTORY FROM PHARMACY. -MAKSIM LEMUS, LESVIAD
[2025-03-21] MEDS: HEPARIN SODIUM 5,000 UNIT/ML VIAL 5000 UNIT SUBCUT (10:12)
[2025-03-21 10:37] LABS: NT Pro Brain Natriuretic Pep. 68.5 pg/mL (0-125)
--- NOTE | 2025-03-21 11:03 | EXP.DC.SUM ---
General Admission date:: 03/21/25 Discharge date: 03/21/25 Exam Data for Last 24 hours Vital signs and Labs for Last 24 Hours: Temp Pulse Resp BP Pulse Ox O2 Del Method 98.4 F 70 20 143/73 H 95 Room Air 03/21/25 07:42 03/21/25 08:00 03/21/25 07:42 03/21/25 07:42 03/21/25 07:30 03/21/25 09:00 Laboratory Results - last 24 hr 03/21/25 03:03: WBC 9.5, RBC 5.11, Hgb 14.5, Hct 43.0, MCV 84.1, MCH 28.4, MCHC 33.7, RDW 12.4, Plt Count 258, MPV 11.0 H, Neut % (Auto) 42.2, Lymph % (Auto) 42.1, [place] % (Auto) 11.7 H, Eos % (Auto) 3.0, Baso % (Auto) 0.9, Neut # (Auto) 4.0, Lymph # (Auto) 4.0, [place] # (Auto) 1.1 H, Eos # (Auto) 0.3, Baso # (Auto) 0.1, D-Dimer 0.63 H, Sodium 139, Potassium 4.1, Chloride 101, Carbon Dioxide 24, Anion Gap 18.1 H, BUN 27 H, Creatinine 1.10 H, Estimated Creat Clear 61, Estimated GFR 50 L, Est GFR ( Amer) 60, Glucose 204 H, Calcium 10.9 H, Total Bilirubin 0.8, AST 41 H, ALT 26, Alkaline Phosphatase 88, Troponin I < 0.01, Total Protein 8.1, Albumin 5.0, Globulin 3.1, Albumin/Globulin Ratio 1.6 03/21/25 06:17: Troponin I < 0.01 03/21/25 10:10: NT-Pro-B Natriuret Pep 68.5 I & O for Last 24 hours: Intake & Output 03/18/25 03/19/25 03/20/25 03/21/25 23:59 23:59 23:59 23:59 Weight 74.843 kg Results Data Completed and Pending Labs on day of discharge: Labs from last 24 hours 03/21/25 03/21/25 03/21/25 10:10 06:17 03:03 WBC 9.5 RBC 5.11 Hgb 14.5 Hct 43.0 MCV 84.1 MCH 28.4 MCHC 33.7 RDW 12.4 Plt Count 258 MPV 11.0 H Neut % (Auto) 42.2 Lymph % (Auto) 42.1 [place] % (Auto) 11.7 H Eos % (Auto) 3.0 Baso % (Auto) 0.9 Neut # (Auto) 4.0 Lymph # (Auto) 4.0 [place] # (Auto) 1.1 H Eos # (Auto) 0.3 Baso # (Auto) 0.1 D-Dimer 0.63 H Sodium 139 Potassium 4.1 Chloride 101 Carbon Dioxide 24 Anion Gap 18.1 H BUN 27 H Creatinine 1.10 H Estimated Creat Clear 61 Estimated GFR 50 L Est GFR ( Amer) 60 Glucose 204 H Calcium 10.9 H Total Bilirubin 0.8 AST 41 H ALT 26 Alkaline Phosphatase 88 Troponin I < 0.01 < 0.01 NT-Pro-B Natriuret Pep 68.5 Total Protein 8.1 Albumin 5.0 Globulin 3.1 Albumin/Globulin Ratio 1.6 Meds Home Medications and Allergies Home Medications ?Medication ?Instructions ?Recorded ?Confirmed ?Type amlodipine 10 mg-olmesartan 40 mg 1 tab PO DAILY 03/21/25 03/21/25 History tablet empagliflozin 25 mg tablet 25 mg PO DAILY 03/21/25 03/21/25 History (Jardiance) gemfibrozil 600 mg tablet 600 mg PO BID 03/21/25 03/21/25 History insulin aspart U-100 100 unit/mL 18 unit SQ BID 03/21/25 03/21/25 History (3 mL) subcutaneous pen (Novolog FlexPen U-100 Insulin aspart) insulin degludec 100 unit/mL (3 48 unit SQ DAILY 03/21/25 03/21/25 History mL) subcutaneous pen (Tresiba FlexTouch U-100 insulin) levothyroxine 50 mcg tablet 50 mcg PO DAILY 03/21/25 03/21/25 History metformin 500 mg tablet 500 mg PO BID 03/21/25 03/21/25 History metoprolol succinate 50 mg 50 mg PO DAILY 03/21/25 03/21/25 History tablet,extended release 24 hr multivitamin 1 tab PO DAILY 03/21/25 03/21/25 History risedronate 35 mg tablet 35 mg PO WEEKLY 03/21/25 03/21/25 History rosuvastatin 40 mg tablet 40 mg PO DAILY 03/21/25 03/21/25 History triamterene 37.5 1 tab PO DAILY 03/21/25 03/21/25 History mg-hydrochlorothiazide 25 mg tablet New Prescriptions to Start Prescriptions: Allergies Allergy/AdvReac Type Severity Reaction Status Date / Time No Known Allergies Allergy Unverified 09/05/17 15:09 Discharge Plan Disposition Patient Disposition: Home, Self-Care Condition: Fair Follow up Plan Follow up with: Daniel Worthington MD [Staff Physician, Medical] - Enter time for follow up Aleyda Christy MD [Referring, Cardiology] - Enter time for follow up Prescriptions/Medication Reconciliation: Continued insulin aspart U-100 [Novolog FlexPen U-100 Insulin] 100 unit/mL (3 mL) insulin pen 18 unit SQ BID Patient Comments: INJECT 16 TO 18 UNITS SUBCUTANEOUSLY TWICE DAILY BEFORE MEALS + 2 UNITS TO PRIME THE PEN multivitamin Tablet 1 tab PO DAILY metformin 500 mg Tablet 500 mg PO BID metoprolol succinate 50 mg tablet extended release 24 hr 50 mg PO DAILY Patient Comments: TAKE 1 TABLET BY MOUTH ONCE DAILY FOR 30 DAYS gemfibrozil 600 mg Tablet 600 mg PO BID levothyroxine 50 mcg tablet 50 mcg PO DAILY Patient Comments: TAKE 1 TABLET BY MOUTH ONCE DAILY triamterene-hydrochlorothiazid 37.5-25 mg tablet 1 tab PO DAILY Patient Comments: TAKE 1 TABLET BY MOUTH ONCE DAILY risedronate 35 mg tablet 35 mg PO WEEKLY rosuvastatin 40 mg tablet 40 mg PO DAILY Patient Comments: TAKE 1 TABLET BY MOUTH ONCE DAILY amlodipine-olmesartan 10-40 mg tablet 1 tab PO DAILY insulin degludec [Tresiba FlexTouch U-100] 100 unit/mL (3 mL) Insulin Pen 48 unit SQ DAILY Jardiance 25 mg tablet 25 mg PO DAILY Patient Comments: TAKE 1 TABLET BY MOUTH ONCE DAILY FOR 90 DAYS Problem Reconciliation Problems Reviewed?: Yes Patient Discharge Instructions ACTIVITY: Continue current activity DIET: cardiac Patient Instructions: Coronary Artery Disease, DI for Chest Pain Print Language: Ma[place] Providers Primary Care Provider: Provider,Referral Admit Provider: Seng Pineda Attending Provider: Seng Pineda
--- NOTE | 2025-03-21 11:13 | P.HPDS_ITS ---
<Statement entered by Seng Pineda MD - 03/21/25 14:29> Rounded on patient after nurse practitioner. Personally examined and interviewed patient. Agree with exam findings and care plan as documented. Strongly encourage patient to follow-up with her PCP and her primary airveyor operator Dr. Christy. Discussed risks and benefits of aspirin and Plavix given the characteristics of her pain and her history of CAD with stent placement over a decade ago. Encouraged to take aspirin 81 mg daily. Patient is hesitant at this time due to her history of hemorrhagic stroke. Appears stable with no active chest pain. EKG unremarkable. Troponins negative x 3. Would benefit from outpatient stress test. General Admission date:: 03/21/25 Discharge date: 03/21/25 *Admission Date: 03/21/25 *Chief complaint: Unstable angina *History of present illness: Ms. Lal is a 64-year-old female who presented to the emergency department with chest pain rating it a 8 out of 10 substernally, Radiating to her back. She does have a history of cardiac stents in 2009. She states she was sleeping when the pain started, but she awoke and felt nauseous and sweaty. After some time in the emergency department she states that the pain has nearly resolved. Decision was made to admit the patient for further monitoring of unstable angina. [facility] Disclaimer: The information contained in this section may have been updated after the patient was seen, as this information can be updated by other users. Medical History (Updated 03/21/25 @ 12:48 by Elisabeth Rodriguez APRN) Hypothyroid HLD (hyperlipidemia) HTN (hypertension) Diabetes type 2 CVA (cerebral vascular accident) CAD (coronary artery disease) Surgical History (Updated 03/21/25 @ 12:47 by Elisabeth Rodriguez APRN) Hx of cardiac cath H/O total hysterectomy H/O: Hx of cholecystectomy Social History (Updated 03/21/25 @ 09:03 by Cecile Croft RN) Smoking Status: Unknown if ever smoked alcohol intake: never current occupational status: employed Travel in the last 8 weeks?: None Contact w/someone who lives/traveled outside US past 30 days?: No Exposure to someone with infectious disease in past 14 days?: No Do you have a fever (greater than 100.4 F or 38 C)?: No Have you tested positive for COVID-19?: No Exposed to someone with COVID-19 in past 14 days?: No Do you have a sore throat?: No Do you have a cough?: No Do you have any weakness?: No Are you experiencing any nausea/vomitting?: No Do you have any diarrhea?: No Are you experiencing any unusual bleeding?: No Do you have any muscle aches/pain?: No Do you have any abdominal pain?: No Are you experiencing loss of taste or smell?: No Other Medical History Have you received the Flu Vaccine for this season: Yes Have you received the Pneumonia Vaccine: Yes Review of Systems Review of Systems Review of systems:: pertinent systems reviewed and negative unless documented below Eyes Eyes: Denies blurry vision ENT Ears, Nose, Mouth, and Throat: Denies dysphagia *Cardiovascular Cardiovascular: Reports chest pain, Reports diaphoresis, Denies dyspnea, Reports lightheadedness and Denies radiating jaw, neck or arm pain *Respiratory Respiratory: Denies dyspnea *Gastrointestinal Gastrointestinal: Denies abdominal pain and Denies dysphagia Exam Data for Last 24 hours Vital signs and Labs for Last 24 Hours: Temp Pulse Resp BP Pulse Ox O2 Del Method 98.4 F 70 20 143/73 H 95 Room Air 03/21/25 07:42 03/21/25 08:00 03/21/25 07:42 03/21/25 07:42 03/21/25 07:30 03/21/25 09:00 Laboratory Results - last 24 hr 03/21/25 03:03: WBC 9.5, RBC 5.11, Hgb 14.5, Hct 43.0, MCV 84.1, MCH 28.4, MCHC 33.7, RDW 12.4, Plt Count 258, MPV 11.0 H, Neut % (Auto) 42.2, Lymph % (Auto) 42.1, [place] % (Auto) 11.7 H, Eos % (Auto) 3.0, Baso % (Auto) 0.9, Neut # (Auto) 4.0, Lymph # (Auto) 4.0, [place] # (Auto) 1.1 H, Eos # (Auto) 0.3, Baso # (Auto) 0.1, D-Dimer 0.63 H, Sodium 139, Potassium 4.1, Chloride 101, Carbon Dioxide 24, Anion Gap 18.1 H, BUN 27 H, Creatinine 1.10 H, Estimated Creat Clear 61, Estimated GFR 50 L, Est GFR ( Amer) 60, Glucose 204 H, Calcium 10.9 H, Total Bilirubin 0.8, AST 41 H, ALT 26, Alkaline Phosphatase 88, Troponin I < 0.01, Total Protein 8.1, Albumin 5.0, Globulin 3.1, Albumin/Globulin Ratio 1.6 03/21/25 06:17: Troponin I < 0.01 03/21/25 10:10: NT-Pro-B Natriuret Pep 68.5 I & O for Last 24 hours: Intake & Output 03/18/25 03/19/25 03/20/25 03/21/25 23:59 23:59 23:59 23:59 Weight 74.843 kg Constitutional Constitutional: no acute distress and cooperative *Routine HEENT Exam Head: Present normocephalic Eye: Present EOMI and PERRL ENT: Present mucous membranes moist *Routine Neck Exam Neck: Present supple and full ROM; Absent JVD *Routine Respiratory Exam Respiratory: Present CTA bilaterally, normal respiratory effort, able to speak in complete sentences and symmetric chest movement *Routine Cardiovascular Exam Cardiovascular: Present RRR, Normal S1 and Normal S2; Absent murmur *Routine Abdominal Exam Abdominal: Present soft and normoactive bowel sounds; Absent tenderness *Routine Rectal Exam Rectal:: deferred *Routine Genitalia Exam Genitalia:: deferred *Routine Extremities Exam Extremities: Present normal capillary refill; Absent edema *Routine Skin Exam Skin: Present intact and dry *Routine Neurological Exam Neurological: Present alert and oriented X3 Meds Home Medications and Allergies Home Medications ?Medication ?Instructions ?Recorded ?Confirmed ?Type amlodipine 10 mg-olmesartan 40 mg 1 tab PO DAILY 03/2103/21/25 History tablet aspirin 81 mg capsule 81 mg PO DAILY #30 caps 01/10 Rx empagliflozin 25 mg tablet 25 mg PO DAILY 03/21/2501/10 History (Jardiance) gemfibrozil 600 mg tablet 600 mg PO BID 03/21/2503/21 History insulin aspart U-100 100 unit/mL 18 unit SQ BID 03/21/25 History (3 mL) subcutaneous pen (Novolog FlexPen U-100 Insulin aspart) insulin degludec 100 unit/mL (3 48 unit SQ DAILY 03/2103/21/25 History mL) subcutaneous pen (Tresiba FlexTouch U-100 insulin) levothyroxine 50 mcg tablet 50 mcg PO DAILY 03/21/25 0 03/21/25 History metformin 500 mg tablet 500 mg PO BID 03/21/2503/21 History metoprolol succinate 50 mg 50 mg PO DAILY 03/21/2501/10 History tablet,extended release 24 hr multivitamin 1 tab PO DAILY 03/21/2501/10 History risedronate 35 mg tablet 35 mg PO WEEKLY 03/21/2501/10 History rosuvastatin 40 mg tablet 40 mg PO DAILY 03/21/2501/10 History triamterene 37.5 1 tab PO DAILY 03/21/2501/10 History mg-hydrochlorothiazide 25 mg tablet New Prescriptions to Start Prescriptions: Elisabeth Ruth Allergies Allergy/AdvReac Type Severity Reaction Status Date / Time No Known Allergies Allergy Unverified 09/05/17 15:09 Hospital Course Hospital Course Hospital Course: Ms. Lal is a 64-year-old female who was admitted from the emergency department after coming in with chest pain that she rated 8/10 substernally that radiated to her back. Discussion was had with Dr. Rahman and decision was made to admit patient for monitoring. Initial EKG showed sinus rhythm with frequent supraventricular premature complexes, repeat EKG showed sinus rhythm. Troponins undetectable x 3. Patient does have a cardiac history, with cardiac stent[place] [address] Christy. She takes multiple cardiac medications: Metoprolol 50 mg daily, rosuvastatin 40 mg, tried Theramine-HCTZ 1 tab daily, amlodipine- olmesartan 1 tab daily. She states that she used to take blood thinner but that was discontinued after few years. Patient now states chest pain is resolved. States she feels much better and back to her baseline. Lab work was unremarkable, kidney function slightly elevated BUN 27, creatinine 1.10. Creatinine in 2023 was 1.3. Glucose 204. proBNP 68.5. Discussed following up with cardiology here at [facility], she would like to stay with Dr. Christy in [place]. Due to the holiday weekend offices are closed, discussed with the patient the importance of outpatient follow-up for further cardiac workup and possible testing. #History of cardiac stenting #Hypertension #Hyperlipidemia #Unstable angina #Murmur #CAD ? EKG personally reviewed and interpreted by myself, showed sinus rhythm, with a rate of 63, normal MD and QTC intervals. No STEMI. ? Chest CTA obtained in the emergency room, no evidence of PE. 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 ? Continue home medications as directed. Follow-up with cardiology and PCP. ? Recommend starting aspirin 81 mg daily. ? Patient does have known cardiac murmur. States it is benign and followed by her airveyor operator. #Diabetes mellitus ? Continue diabetic medication and insulin regimen. ? A1c 11.2%. Discussed with patient the need for PCP follow-up for adjustments to her diabetes regimen. #Hypothyroidism ? Continue levothyroxine 50 mcg daily. ?TSH 1.13. Total time spent on discharge 33 minutes in counseling, documentation, chart review, and direct care with patient. Results Data Completed and Pending Labs on day of discharge: Labs from last 24 hours 03/21/25 03/21/25 03/21/25 10:10 06:17 03:03 WBC 9.5 RBC 5.11 Hgb 14.5 Hct 43.0 MCV 84.1 MCH 28.4 MCHC 33.7 RDW 12.4 Plt Count 258 MPV 11.0 H Neut % (Auto) 42.2 Lymph % (Auto) 42.1 [place] % (Auto) 11.7 H Eos % (Auto) 3.0 Baso % (Auto) 0.9 Neut # (Auto) 4.0 Lymph # (Auto) 4.0 [place] # (Auto) 1.1 H Eos # (Auto) 0.3 Baso # (Auto) 0.1 D-Dimer 0.63 H Sodium 139 Potassium 4.1 Chloride 101 Carbon Dioxide 24 Anion Gap 18.1 H BUN 27 H Creatinine 1.10 H Estimated Creat Clear 61 Estimated GFR 50 L Est GFR ( Amer) 60 Glucose 204 H Calcium 10.9 H Total Bilirubin 0.8 AST 41 H ALT 26 Alkaline Phosphatase 88 Troponin I < 0.01 < 0.01 NT-Pro-B Natriuret Pep 68.5 Total Protein 8.1 Albumin 5.0 Globulin 3.1 Albumin/Globulin Ratio 1.6 DS: Diagnosis Discharge Diagnosis (1) Unstable angina: Status: Acute Code(s): I20.0 - Unstable angina (2) History of coronary artery stent placement: Status: Acute Code(s): Z95.5 - Presence of coronary angioplasty implant and graft (3) Murmur, cardiac: Status: Acute Code(s): R01.1 - Cardiac murmur, unspecified (4) HLD (hyperlipidemia): Status: Acute Code(s): E78.5 - Hyperlipidemia, unspecified (5) HTN (hypertension): Status: Acute Code(s): I10 - Essential (primary) hypertension (6) Diabetes type 2: Status: Acute Code(s): E11.9 - Type 2 diabetes mellitus without complications (7) CAD (coronary artery disease): Status: Acute Code(s): I25.10 - Atherosclerotic heart disease of eek coronary artery without angina pectoris (8) Hypothyroid: Status: Acute Code(s): E03.9 - Hypothyroidism, unspecified Discharge Plan Disposition Patient Disposition: Home, Self-Care Condition: Fair Follow up Plan Follow up with: Daniel Worthington MD [Staff Physician, Medical] - Enter time for follow up Referral Note: please call for appointment Aleyda Christy MD [Referring, Cardiology] - Enter time for follow up Referral Note: please call for appointment Prescriptions/Medication Reconciliation: New aspirin 81 mg capsule 81 mg PO DAILY Qty: 30 0RF Continued insulin aspart U-100 [Novolog FlexPen U-100 Insulin] 100 unit/mL (3 mL) insulin pen 18 unit SQ BID Patient Comments: INJECT 16 TO 18 UNITS SUBCUTANEOUSLY TWICE DAILY BEFORE MEALS + 2 UNITS TO PRIME THE PEN multivitamin Tablet 1 tab PO DAILY metformin 500 mg Tablet 500 mg PO BID metoprolol succinate 50 mg tablet extended release 24 hr 50 mg PO DAILY Patient Comments: TAKE 1 TABLET BY MOUTH ONCE DAILY FOR 30 DAYS gemfibrozil 600 mg Tablet 600 mg PO BID levothyroxine 50 mcg tablet 50 mcg PO DAILY Patient Comments: TAKE 1 TABLET BY MOUTH ONCE DAILY triamterene-hydrochlorothiazid 37.5-25 mg tablet 1 tab PO DAILY Patient Comments: TAKE 1 TABLET BY MOUTH ONCE DAILY risedronate 35 mg tablet 35 mg PO WEEKLY rosuvastatin 40 mg tablet 40 mg PO DAILY Patient Comments: TAKE 1 TABLET BY MOUTH ONCE DAILY amlodipine-olmesartan 10-40 mg tablet 1 tab PO DAILY insulin degludec [Tresiba FlexTouch U-100] 100 unit/mL (3 mL) Insulin Pen 48 unit SQ DAILY Jardiance 25 mg tablet 25 mg PO DAILY Patient Comments: TAKE 1 TABLET BY MOUTH ONCE DAILY FOR 90 DAYS Problem Reconciliation Problems Reviewed?: Yes Patient Discharge Instructions ACTIVITY: Continue current activity DIET: cardiac Patient Instructions: Coronary Artery Disease, DI for Chest Pain Print Language: Danish Providers Primary Care Provider: Provider,Referral Admit Provider: Seng Pineda Attending Provider: Seng Pineda
[2025-03-21 11:14] LABS: Troponin I < 0.01 ng/ml (0.00-0.034)
[2025-03-21 13:10] LABS: Hemoglobin A1C 11.2 % (4.0-6.0)
[2025-03-21 13:17] LABS: Troponin I < 0.01 ng/ml (0.00-0.034)
[2025-03-21 13:36] LABS: Thyroid Stimulating Hormone 1.13 uIU/mL (0.465-4.68)
--- NOTE | 2025-03-25 10:50 | SW/DCPLANNER ---
Phoned patient x2. First phone call it was the wrong number so i called her sons and left a message with name and call back number and the second time i called sons number and left another message with name and call back number. Rosalba Rachel
== END 2025-03-21 15:03 | disposition home or self-care (01) ==
LOC: ER 06:09 → 2ND 06:12
PROVIDERS: Internal Medicine; Admitting Provider Internal Medicine Adolescent Medicine; Emergency Provider Emergency Medicine; Visit Provider Internal Medicine Adolescent Medicine
DX: I25.700 Atherosclerosis of coronary artery bypass graft(s), unspecified, with unstable angina pectoris (principal); I10 Essential (primary) hypertension; R01.1 Cardiac murmur, unspecified; E78.5 Hyperlipidemia, unspecified; E11.9 Type 2 diabetes mellitus without complications; Z79.4 Long term (current) use of insulin; E03.9 Hypothyroidism, unspecified; Z86.73 Personal history of transient ischemic attack (TIA), and cerebral infarction without residual deficits; Z95.5 Presence of coronary angioplasty implant and graft; Z79.890 Hormone replacement therapy; Z79.899 Other long term (current) drug therapy
CPT/HCPCS: 36415; 71045; 71275; 80053; 83036; 83880; 84443; 84484; 85025; 85378; 93005; G0378; J1644; Q9967

== ENCOUNTER 2025-09-04 07:40 | Outpatient (CLI) | payer MEDICARE, SELFPAY ==
--- OUTSIDE RECORDS SUMMARY | 2024-05-17 05:15 | XMS_ITS ---
Author Organization [facility] Address [address] [facility] [address] [facility] [address] [place] [id number] Care Team Providers Care Senior Game Advisor Name Role Phone Yaya Worthington Primary Care Provider [phone] Allergies Allergen (clinical drug ingredient) Drug/Non Drug Allergy documented on EMR Reaction Allergy Type Onset Date Status clarithromycin Clarithromycin Unknown Drug Allergy Active REASON FOR VISIT 4 month check, Needs labs & diabetic eye exam Encounters Encounter Location Date Provider Diagnosis [facility] [address] [facility] [address] [facility] [address] [place] [phone] 05/17/2024 Yaya Worthington Plan Of Treatment Next Appt Details Provider Name:Yaya Robles er, 09/19/2025 10:45:00 AM, [address] [facility] [address] [facility], [address], [place], [id number], Progress Notes * Charanjit GARCIAOB:1960 ( 65 yo F)Acc No.[id number]:05/17/2024 Progress Notes Patient: Chiqui KINSEY Provider: Yaya Worthington M.D. :1960 A ge:63 Y S ex:Female Date:05/17/2024 Phone: Address:[facility] [id number] Subjective: * Chief Complaints: * 1 . 4 month check. 2. Needs labs & diabetic eye exam. * ROS: D ERMATOLOGY: no R bridget. n o H josé. G ASTROENTEROLOGY: no N ausea. n o V omiting. n o D iarrhea.? U ROLOGY: no D ifficulty urinating. n o B lood in urine. 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 * Surgical History: h ysterectomy abdominal , , heart stent placed - 70% blockage 03/31/09, cholecystectomy 11/02/2017, colonoscopy 08/2017, pancreatic biopsy, Dr. Escalona . * Hospitalization/Major Diagno stic Procedure: [facility] ER Dizzy, vomiting, April 06 2008. * Family History: F ather: 59 yrs, heart attack. M other: 59 yrs, lung cancer low b/p.?Paternal Grand Father: . P aternal Grand Mother: . M aternal Grand Father: . M aternal Grand Mother: . 4 brother(s) , 2 sister(s) . 2 son(s) . . * Social History: C URRENT TOBACCO USE S moking Status: Patient does NOT smoke. C affeine: yes, frequency:daily. Exercise: yes. Home smoke detector use: yes. Marital Status: . New since last visit: none. Occupation: yes. Past smoking status: no. Occup. exposure: none, pos tb skin test. Recreational drug use: no. Alcohol: no. Sexually active: yes. Travel ouside [place]: no. * Allergies: C larithromycin. Objective: * Vitals: Assessment: Plan: * Treatment: * Images: Billing Information: * Visit Code: * Procedure Codes: * Electronic signature of Yaya Worthington MD on 09/04/2025 at 07:44 AM EST Sign off status: Pending * Provider: Yaya Worthington M.D. Date: 0 05/17/2024 Generated for Arun vanegas/Marycarmen/Kristysmitting on: 1 11/05/2024 07:44 AM EST
--- OUTSIDE RECORDS SUMMARY | 2024-08-08 09:45 | XMS_ITS ---
Author Organization [facility] Address [address] [facility] [address] [place] [id number] Care Team Providers Care Manager Database Name Role Phone Yaya Worthington Primary Care Provider Allergies Allergen (clinical drug ingredient) Drug/Non Drug Allergy documented on EMR Reaction Allergy Type Onset Date Status clarithromycin Clarithromycin Unknown Drug Allergy Active Results Component Value Reference Range Notes Glycohemoglobin A1c (in hous e) Reviewed date:08/09/2024 10:30:02 AM Interpretation: Performing Lab: Notes/Report: glycohemoglobin 7.5% 5 - 6.5 % P-Comprehensive Metabolic Pa muna (CMP) Reviewed date:08/13/2024 03:55:10 PM Interpretation:co2- 21, gluc 184, bun 28, Cr 1.35, gfr 43 Performing Lab: Notes/Report: Test performed by [facility] [address] [place] [address] , [address], [place] [address] Hank Ayala MD, Service Clerk CLIA: [id number] Sodium 142 135-145 mmol/L Potassium 4.2 3.5-5.3 mmol/L Chloride 106 97-108 mmol/L CO2 21 22-32 mmol/L Glucose 184 65-99 mg/dL BUN 28 8-23 mg/dL Creatinine 1.35 0.50-1.00 mg/dL Calcium 10.3 8.6-10.4 mg/dL eGFR by Creatinine 43 >59 mL/min/1.73m2 Protein 7.0 6.0-8.3 g/dL Albumin 4.7 3.5-5.3 g/dL Alkaline Phosphatase 60 35-121 IU/L ALT (SGPT) 19 <5-47 IU/L AST (SGOT) 23 <5-40 IU/L Bilirubin, Total 0.4 <0.2-1.2 mg/dL A/G Ratio 2.0 1.1-2.5 REASON FOR VISIT Check Up and Shoulder Pain, Needs labs, diabetic eye exam, & flu vaccine Medications Medication SIG (Take, Route, Frequency, Duration) Notes Start Date End Date Status Risedronate Sodium 35 MG [address] 30 minutes before the first food or drink, other than water, of the day Orally once weekly; Duration: 90 days Active Ozempic (0.25 or 0.5 MG/DOSE) 2 MG/3ML as directed Subcutaneous Active Toujeo SoloStar 300 UNIT/ML 44 units subcutaneously once a day Active Vascepa 1 GM TAKE 2 CAPSULES BY M OUT TWICE DAILY; Duration: 30 Active NovoLOG FlexPen 100 UNIT/ML 8units am and 12 units pm Subcutaneous twice a day Active Gemfibrozil 600 MG 1 tab(s) orally 2 ti mes a day; Duration: 90 days Active Levothyroxine Sodium 50 MCG Take 1 tablet by mouth once daily Orally once daily; Duration: 90 days Active Metoprolol Succinate ER 50 MG 1 tablet Orally Once a day; Duration: 90 days Active Denise 10-40 MG 1 tab(s) orally once a day; Duration: 90 days Active Rosuvastatin Calcium 40 MG 1 tab(s) oral ly Once a day; Duration: 90 days Active Multivitamin - 1 tab(s) orally once a day; Duration: 30 day(s) Active Dexcom G7 Farm Manager - as directed 10/12/2023 Active Farxiga 10 MG Take 1 tablet by giovanni th once daily Active Dexcom G7 Sensor - as directed; Duratio n: 90 days 10/12/2023 Active Medrol 4 MG as directed orally d aily; Duration: 6 days 08/08/2024 Active metFORMIN HCl 1000 MG 1 tab(s) orally Once a day Active Maxzide-25 37.5-25 MG 1/2 orally once a day; Duration: 90 days Active Immunizations Vaccine Route Administration Date Status Comme nts Fluzone High Dose (65yr and older) IM Intramuscular 08/08/2024 Administered Problems Problem Type SNOMED Code ICD Code Onset Dates Problem Status W/U Status Risk Notes Problem Shoulder joint pain (152955712) Acute pain of right shoulder (M25.511) Active confirmed Vital Signs Blood pressure systolic 130 mm Hg 08/08/20 24 Blood pressure diastolic 70 mm Hg 024 Heart Rate 84 /min 08/08/2024 Height 63.5 in 08/08/2024 Weight 159.0 lbs 08/08/2024 BMI 27.72 kg/m2 08/08/2024 Encounters Encounter Location Date Provider Diagnosis [facility] [address] [place] [id number] 08/08/2024 Yaya Worthington Type 2 diabetes mellitus with other circulatory complications E11.59 ; Essential hypertension I10 ; Status post angioplasty with stent Z95.9 ; Acute pain of right shoulder M25.511 and Renal insufficiency N28.9 Assessments Encounter Date Diagnosis (ICD Code) Assessment Notes Treatment Notes Treatment Clinical Notes Section Notes 08/08/2024 Type 2 diabetes mellitus with other circulatory complications (ICD-10 - E11.59) 08/08/2024 Essential hypertension (ICD-10 - I10) 08/08/2024 Status post angioplasty with stent (ICD-10 - Z95.9) 08/08/2024 Acute pain of right shoulder (ICD-10 - M25.511) 08/08/2024 Renal insufficiency (ICD-10 - N28.9) Plan Of Treatment Medication Medication Name Sig Start Date Stop Date Notes Medrol 4 MG as directed orally d aily; Duration: 6 days 08/08/2024 Maxzide-25 37.5-25 MG 1/2 orally once a day; Duration: 90 days Next Appt Details Follow Up: 2 Months, Reason: Provider Name:Yaya Robles er, 09/19/2025 10:45:00 AM, [address] [facility] [address] [facility], [address], [place], [place], [id number], Progress Notes * Charanjit GARCIAOB:1960 ( 65 yo F)Acc No.[id number]:08/08/2024 Progress Notes Patient: Chiqui KINSEY Provider: Yaya Worthington M.D. :1960 A ge:64 Y S ex:Female Date:08/08/2024 Phone: Address:[address] [place] [address] [place]MA [place], [id number] Subjective: * Chief Complaints: * 1 . Check Up and Shoulder Pain. 2. Needs labs, diabetic eye exam, & flu vaccine. * HPI: C ardiology: The patient is here today for a check up on Hypertension and Diabetes. Pt states she is having pain in the right shoulder and arm for about 3 months and is getting instead of better. Pt is not fasting. Pt states she had an episode of chest pain and palpitations in around the first of July and went to the ER. Denies : Chest Pain. D enies : Short of Breath. D enies : Dizziness. D enies : Palpitations. C onstitutional: Last visit here was December 2023. Was due for follow-up in April. * ROS: D ERMATOLOGY: no R bridget. n o H josé. G ASTROENTEROLOGY: no N ausea. n o V omiting. n o D iarrhea.? U ROLOGY: no D ifficulty urinating. n o B lood in urine. 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 * Surgical History: h ysterectomy abdominal , , heart stent placed - 70% blockage 03/31/09, cholecystectomy 11/02/2017, colonoscopy 08/2017, pancreatic biopsy, Dr. Escalona . * Hospitalization/Major Diagno stic Procedure: H ER Dizzy, vomiting, April 06 2008. * [...] active: yes. Travel ouside [place]: no. * Medications: T aking Ozempic (0.25 or 0.5 MG/DOSE) 2 MG/3ML Solution Pen-injector as directed Subcutaneous , Taking NovoLOG FlexPen 100 UNIT/ML Solution Pen-injector 8units am and 12 units pm Subcutaneous twice a day , Taking Toujeo SoloStar 300 UNIT/ML Solution Pen-injector 44 units subcutaneously once a day , Taking metFORMIN HCl 1000 MG Tablet 1 tab(s) orally Once a day , Taking Multivitamin - Tablet 1 tab(s) orally once a day , Taking Farxiga 10 MG Tablet Take 1 tablet by mouth once daily , Taking Dexcom G7 Farm Manager - Device as directed , Taking Dexcom G7 Sensor - Miscellaneous as directed , Taking Gemfibrozil 600 MG Tablet 1 tab(s) orally 2 times a day , Taking Levothyroxine Sodium 50 MCG Tablet Take 1 tablet by mouth once daily Orally once daily , Taking Denise 10-40 MG Tablet 1 tab(s) orally once a day , Taking Metoprolol Succinate ER 50 MG Tablet Extended Release 24 Hour 1 tablet Orally Once a day , Taking Rosuvastatin Calcium 40 MG Tablet 1 tab(s) orally Once a day , Taking Vascepa 1 GM Capsule TAKE 2 CAPSULES BY MOUTH TWICE DAILY , Taking Maxzide-25 37.5-25 MG Tablet 1 tab(s) orally once a day , Taking Risedronate Sodium 35 MG Tablet 1 tablet at least 30 minutes before the first food or drink, other than water, of the day Orally once weekly , Medication List reviewed and reconciled with the patient * Allergies: C larithromycin. Objective: * Vitals: W t:159.0, Temp:98.2, BP:130/70, HR:84, Nurse:KARO, Ht: 63.5, BMI:27.72. * Examination: G eneral Examination: General Appearance: N AD. H EENT: u nremarkable.?Oral cavity: n o lesions, mucosa moist and WNL, no erythema. N clara: s upple, no lymphadenopathy. C hest: n ormal shape and expansion. H eart: R SR, no ectopics. L ungs: c lear to auscultation. A bdomen: soft and nontender. N eurologic Exam: I ntact, gait normal. S kin: n ormal, no rash. B ack: normal, mild dorsal kyphosis.?Extremities: n o leg edema. Shoulder exam is not very specific. Some supraspinatus and infraspinatus tenderness. Assessment: * Assessment: 1. T ype 2 diabetes mellitus with other circulatory complications - E11.59 (Primary) 2 . E ssential hypertension - I10 3 . S tatus post angioplasty with stent - Z95.9 4 . A cute pain of right shoulder - M25.511 5 . R enal insufficiency - N28.9 Plan: * Treatment: Value Reference Range g lycohemoglobin 7.5% 5 - 6.5 % * Carine Antonio 08/08/2024 3: 16:06 PM > , Provider reviewed results while patient in office. 2.?Essential hypertension?LAB: P-Comprehensive Metabolic Panel (CMP) (Collection Date & Time - 08/09/2024 08:55 AM)?co2- 21, gluc 184, bun 28, Cr 1.35, gfr 43* Value Reference Range A /G Ratio 2.0 1.1-2.5 - * A lbumin 4.7 3.5-5.3 - g/dL * A lkaline Phosphatase 60 35-121 - IU/L * A LT (SGPT) 19 <5-47 - IU/L * A ST (SGOT) 23 <5-40 - IU/L * B ilirubin, Total 0.4 <0.2-1.2 - mg/dL * B UN 28 H 8-23 - mg/dL * C alcium 10.3 8.6-10.4 - mg/dL * C hloride 106 97-108 - mmol/L * C O2 21 L 22-32 - mmol/L * C reatinine 1.35 H 0.50-1.00 - mg/dL * G lucose 184 H 65-99 - mg/dL * P otassium 4.2 3.5-5.3 - mmol/L * S odium 142 135-145 - mmol/L * P rotein 7.0 6.0-8.3 - g/dL * e GFR by Creatinine 43 L >59 - mL/min/1.73m2 * Nubia Garcia 08/13/2024 3:55 :03 PM >See phone encounter 3.?Acute pain of right shoulder? Start Medrol Tablet Therapy Pack, 4 MG, as directed, orally, daily, 6 days, 1, Refills 0.? 4.?Renal insufficiency? Decrease Maxzide-25 Tablet, 37.5-25 MG, 1/2, orally, once a day, 90 days, Refills 1.?LAB: P-Comprehensive Metabolic Panel (CMP) (Collection Date & Time - 08/09/2024 08:55 AM)?co2- 21, gluc 184, bun 28, Cr 1.35, gfr 43* Value Reference Range A /G Ratio 2.0 1.1-2.5 - * A lbumin 4.7 3.5-5.3 - g/dL * A lkaline Phosphatase 60 35-121 - IU/L * A LT (SGPT) 19 <5-47 - IU/L * A ST (SGOT) 23 <5-40 - IU/L * B ilirubin, Total 0.4 <0.2-1.2 - mg/dL * B UN 28 H 8-23 - mg/dL * C alcium 10.3 8.6-10.4 - mg/dL * C hloride 106 97-108 - mmol/L * C O2 21 L 22-32 - mmol/L * C reatinine 1.35 H 0.50-1.00 - mg/dL * G lucose 184 H 65-99 - mg/dL * P otassium 4.2 3.5-5.3 - mmol/L * S odium 142 135-145 - mmol/L * P rotein 7.0 6.0-8.3 - g/dL * e GFR by Creatinine 43 L >59 - mL/min/1.73m2 * Nubia Garcia 08/13/2024 3:55 :03 PM >See phone encounter * Immunizations: Fluzone High Dose (65yr and older) : 0.7 mL (Route: Intramuscular) given by Carine Antonio on Left Deltoid * Procedure Codes: G 2211 Complex e/[place], [address] CAPILLARY BLOOD DRAW, 53942 GLYCATED HEMOGLOBIN TEST, Modifiers: QW * Follow Up: 2 Months * Images: Billing Information: * Visit Code: 14342 Office Visit, Est Pt., Level 4. * Procedure Codes: G2211 Complex e/[place]. [address] CAPILLARY BLOOD DRAW. 33230 GLYCATED HEMOGLOBIN TEST. Modifiers: QW * Electronic signature of Yaya Worthington MD on 09/04/2025 at 07:44 AM EST Sign off status: Pending * Provider: Yaya Worthington M.D. Date: 10/08/2023 Generated for Arun vanegas/Marycarmen/Keyurransmitting on: 11/05/2024 07:44 AM EST History and Physical Notes * HPI (History of Present Illness) Category Sub-Category Detail Notes Category Not es Cardiology Short of Breath Chest Pain Palpitations Dizziness Examination Category Sub-Category Detail Notes Category Not es General Examination HEENT: unremarkable Heart: RSR, no ectopics Lungs: clear to auscultatio n Abdomen: soft and nontender Extremities: no leg edema. Should er exam is not very specific. Some supraspinatus and infraspinatus tenderness General Appearance: NAD Skin: normal, no rash Neurologic Exam: Intact, gait normal Neck: supple, no lymphaden opathy Oral cavity: no lesions, mucosa m oist and WNL, no erythema Peripheral pulses: Back: normal, mild dorsal kyphosis Chest: normal shape and exp ansion
--- OUTSIDE RECORDS SUMMARY | 2024-10-10 09:45 | XMS_ITS ---
Author Organization [facility] Address [address] [facility] [address] [facility] [address] [place] [id number] Care Team Providers Care Internal Medicine Doctor Name Role Phone Yaya Worthington Primary Care Provider [phone] Allergies Allergen (clinical drug ingredient) Drug/Non Drug Allergy documented on EMR Reaction Allergy Type Onset Date Status clarithromycin Clarithromycin Unknown Drug Allergy Active Results Component Value Reference Range Notes CBC Venipuncture (in house) Reviewed date:10/10/2024 04:14:08 PM Interpretation: Performing Lab: Notes/Report: wbc 11.9 3.5 - 10 lymph 34.0 15 - 50 mid 6.9 2 - 15 gran 59.1 35 - 80 rbc 4.70 3.5 - 5.5 hgb 13.7 11.5 - 16.5 hct 40.0 35 - 55 mcv 85.1 75 - 100 mch 29.3 25 - 35 mchc 34.4 31 - 38 platlet 258 100 - 400 Glycohemoglobin A1c (in hous e) Reviewed date:10/11/2024 09:10:37 AM Interpretation:7.6% Performing Lab: Notes/Report: 7.6% glycohemoglobin 7.6% 5 - 6.5 % P-Comprehensive Metabolic Pa muna (CMP) Reviewed date:10/11/2024 09:10:37 AM Interpretation:co2- 21, gluc 236, bun 28, Cr 1.12, Ca 10.9, gfr 54 Performing Lab: Notes/Report: Test performed by [facility] [address] [place] [address] , [address], [place] [address] Hank Ayala MD, Tailer Off CLIA: [id number] Sodium 141 135-145 mmol/L Potassium 4.3 3.5-5.3 mmol/L Chloride 106 97-108 mmol/L CO2 21 22-32 mmol/L Glucose 236 65-99 mg/dL BUN 28 8-23 mg/dL Creatinine 1.12 0.50-1.00 mg/dL Calcium 10.9 8.6-10.4 mg/dL eGFR by Creatinine 54 >59 mL/min/1.73m2 Protein 7.2 6.0-8.3 g/dL Albumin 4.8 3.5-5.3 g/dL Alkaline Phosphatase 66 35-121 IU/L ALT (SGPT) 18 <5-47 IU/L AST (SGOT) 23 <5-40 IU/L Bilirubin, Total 0.5 <0.2-1.2 mg/dL A/G Ratio 2.0 1.1-2.5 P-Microalbumin/Creatinine, R andom Urine Sample Reviewed date:10/11/2024 09:10:37 AM Interpretation:a/c 59 Performing Lab: Notes/Report: Test performed by [facility] [address] [place] [address] , [address], [place] [address] Hank Ayala MD, Tailer Off CLIA: [id number] Albumin/Creatinine Ratio, Urine 59 0-30 ug/m g Microalbumin, Urine, Random 2.6 Creatinine, Urine 43.7 Reason For Referral Reason deltoid bursitis Diagnosis 1 Acute pain of right shoulder (M25.511) Referral Organization [facility] Referring Provider First Name Yaya Dilladr Referring Provider Last Name Ander Referring Provider Speciality Family Pra ctice Referred Provider Specialty Physical The rapist General Notes Luci Acosta 10/10/19 3:26:42 PM > faxed to [facility] PT Referral Priority Routine REASON FOR VISIT 2 months, Needs labs & diabetic eye exam Medications Medication SIG (Take, Route, Frequency, Duration) Notes Start Date End Date Status Dexcom G7 Sensor - as directed; Duratio n: 90 days 10/12/2023 Active Gemfibrozil 600 MG 1 tab(s) orally 2 ti mes a day; Duration: 90 days Active Levothyroxine Sodium 50 MCG Take 1 tablet by mouth once daily Orally once daily; Duration: 90 days Active Denise 10-40 MG 1 tab(s) orally once a day; Duration: 90 days Active Dexcom G7 Sludge Mill Operator - as directed 10/12/2023 Active NovoLOG FlexPen 100 UNIT/ML 8units am and 12 units pm Subcutaneous twice a day Active Alexandra SoloStar 300 UNIT/ML 44 units subcutaneously once a day Active metFORMIN HCl 1000 MG 1 tab(s) orally Once a day Active Multivitamin - 1 tab(s) orally once a day; Duration: 30 day(s) Active Farxiga 10 MG Take 1 tablet by giovanni th once daily Active Ozempic (0.25 or 0.5 MG/DOSE) 2 MG/3ML as directed Subcutaneous Active Maxzide-25 37.5-25 MG 1/2 orally once a day; Duration: 90 days Active Vascepa 1 GM TAKE 2 CAPSULES BY M OUTH TWICE DAILY; Duration: 30 Active Risedronate Sodium 35 MG [address] 30 minutes before the first food or drink, other than water, of the day Orally once weekly; Duration: 90 days Active CeleBREX 200 MG 1 capsule with food Orally Once a day; Duration: 30 day(s) 10/03/2024 Active Metoprolol Succinate ER 50 MG 1 tablet Orally Once a day; Duration: 90 days Active Rosuvastatin Calcium 40 MG 1 tab(s) oral ly Once a day; Duration: 90 days Active Problems Problem Type SNOMED Code ICD Code Onset Dates Problem Status W/U Status Risk Notes Problem Band neutrophil count above reference range (956118891) Bandemia without diagnosis of specific infection (D72.825) Active confirmed Vital Signs Blood pressure systolic 140 mm Hg 10/10/19 25 Blood pressure diastolic 80 mm Hg 025 Heart Rate 66 /min 10/10/2024 Height 63.5 in 10/10/2024 Weight 161.6 lbs 10/10/2024 BMI 28.17 kg/m2 10/10/2024 Encounters Encounter Location Date Provider Diagnosis [facility] [address] [facility] [address] [place], [place] [id number] 10/10/2024 Yaya Worthington Acute pain of right shoulder M25.511 ; Essential (primary) hypertension I10 ; Insulin long-term use Z79.4 ; Type 2 diabetes mellitus with other circulatory complications E11.59 and Bandemia without diagnosis of specific infection D72.825 Assessments Encounter Date Diagnosis (ICD Code) Assessment Notes Treatment Notes Treatment Clinical Notes Section Notes 10/10/2024 Acute pain of right shoulder (ICD-10 - M25.511) 10/10/2024 Essential (primary) hypertension (ICD-10 - I10) 10/10/2024 Insulin long-term use (ICD-10 - Z79.4) 10/10/2024 Type 2 diabetes mellitus with other circulatory complications (ICD-10 - E11.59) 10/10/2024 Bandemia without diagnosis of specific infection (ICD-10 - D72.825) Plan Of Treatment Referrals Referral Date Details 10/10/2024 10/10/2024, deltoid bursitis Next Appt Details Follow Up: 4 Weeks, Reason: Provider Name:Yaya Robles er, 09/19/2025 10:45:00 AM, [address], [address], [place], [place], [id number], Progress Notes * Charanjit GARCIAOB:1960 ( 65 yo F)Acc No.[id number]:10/10/2024 Progress Notes Patient: Chiqui KINSEY Provider: Yaya Worthington M.D. :1960 A ge:64 Y S ex:Female Date:10/10/2024 Phone: Address:[address] [place] [address] [address], [place], [place] Subjective: * Chief Complaints: * 1 . 2 months. 2. Needs labs & diabetic eye exam. * HPI: H PI: 64 year old female presents with c/o Patient is here today for?for w [place] P t sts she is here today for a 2 month check up. Pt sts she has no concerns other than her rt arm/shoulder pain. * ROS: D ERMATOLOGY: no R bridget. [...] mouth once daily , Taking Dexcom G7 Sludge Mill Operator - Device as directed , Taking Dexcom [...] tab(s) orally Once a day , Taking Maxzide-25 37.5-25 MG Tablet 1/2 orally once a day , Taking Vascepa 1 GM Capsule TAKE 2 CAPSULES BY MOUTH TWICE DAILY , Taking Risedronate Sodium 35 MG Tablet 1 tablet at least 30 minutes before the first food or drink, other than water, of the day Orally once weekly , Taking CeleBREX 200 MG Capsule 1 capsule with food Orally Once a day , Medication List reviewed and reconciled with the patient * Allergies: C larithromycin. Objective: * Vitals: W t:161.6, Temp:98.2, BP:140/80, HR:66, Nurse:FRAN, Ht: 63.5, BMI:28.17. * Examination: G eneral Examination: General Appearance: [...] kyphosis.?Extremities: n o leg edema. Shoulder exam t ventura suggests deltoid tenderness at shoulder and insertion. Also some biceps tenderness . Assessment: * Assessment: 1. A cute pain of right shoulder - M25.511 (Primary) 2 . E ssential (primary) hypertension - I10 3 . I nsulin long-term use - Z79.4 4 .?Type 2 diabetes mellitus with other circulatory complications - E11.59 5 . B andemia without diagnosis of specific infection - D72.825 Plan: * Treatment: 2. E ssential (primary) hypertension L AB: CBC Venipuncture (in house) (Collection Date & Time - 10/10/2024) Value Reference Range w bc 11.9 3.5 - 10 * l ymph 34.0 15 - 50 * m id 6.9 2 - 15 * g ran 59.1 35 - 80 * r bc 4.70 3.5 - 5.5 * h gb 13.7 11.5 - 16.5 * h ct 40.0 35 - 55 * m cv 85.1 75 - 100 * m ch 29.3 25 - 35 * m chc 34.4 31 - 38 * p latlet 258 100 - 400 * Danielle Heath 10/10/2024 3:05: 02 PM > , Provider reviewed results while patient in office. ?LAB: Glycohemoglobin A1c (in house) (Collection Date & Time - 10/10/2024)? 7.6%* Value Reference Range g lycohemoglobin 7.6% 5 - 6.5 % * Danielle Heath 10/10/2024 3:11: 31 PM > , Provider reviewed results while patient in office. Nubia Garcia 10/11/2024 9:10:30 AM >See phone encounter 3.?Type 2 diabetes mellitus with other circulatory complications?LAB: P-Comprehensive Metabolic Panel (CMP) (Collection Date & Time - 10/10/2024 02:56 PM)?co2- 21, gluc 236, bun 28, Cr 1.12, Ca 10.9, gfr 54* Value Reference Range A /G Ratio 2.0 1.1-2.5 - * A lbumin 4.8 3.5-5.3 - g/dL * A lkaline Phosphatase 66 35-121 - IU/L * A LT (SGPT) 18 <5-47 - IU/L * A ST (SGOT) 23 <5-40 - IU/L * B ilirubin, Total 0.5 <0.2-1.2 - mg/dL * B UN 28 H 8-23 - mg/dL * C alcium 10.9 H 8.6-10.4 - mg/dL * C hloride 106 97-108 - mmol/L * C O2 21 L 22-32 - mmol/L * C reatinine 1.12 H 0.50-1.00 - mg/dL * G lucose 236 H 65-99 - mg/dL * P otassium 4.3 3.5-5.3 - mmol/L * S odium 141 135-145 - mmol/L * P rotein 7.2 6.0-8.3 - g/dL * e GFR by Creatinine 54 L >59 - mL/min/1.73m2 * Nubia Garcia 10/11/2024 9:10: 30 AM >See phone encounter ?LAB: P-Microalbumin/Creatinine, Random Urine Sample (Collection Date & Time - 10/10/2024 02:56 PM)?a/c 59* Value Reference Range A lbumin/Creatinine Ratio, Urine 59 H 0-30 - ug /mg * C reatinine, Urine 43.7 - mg/dL * M icroalbumin, Urine, Random 2.6 - mg/dL * Nubia Garcia 10/11/2024 9:10: 30 AM >See phone encounter ?LAB: CBC Venipuncture (in house) (Collection Date & Time - 10/10/2024)* Value Reference Range w bc 11.9 3.5 - 10 * l ymph 34.0 15 - 50 * m id 6.9 2 - 15 * g ran 59.1 35 - 80 * r bc 4.70 3.5 - 5.5 * h gb 13.7 11.5 - 16.5 * h ct 40.0 35 - 55 * m cv 85.1 75 - 100 * m ch 29.3 25 - 35 * m chc 34.4 31 - 38 * p latlet 258 100 - 400 * Danielle Heath 10/10/2024 3:05: 02 PM > , Provider reviewed results while patient in office. * Procedure Codes: 8 5025 CBC WITH AUTO DIFF, 69079 GLYCATED HEMOGLOBIN TEST, Modifiers: QW , G2211 Complex e/m visit add on * Follow Up: 4 Weeks * Images: Billing Information: * Visit Code: 37346 Office Visit, Est Pt., Level 4. * Procedure Codes: 17528 CBC WITH AUTO DIFF. 25377 GLYCATED HEMOGLOBIN TEST. Modifiers: QW G2211 Complex e/m visit add on. * Electronic signature of Yaya Worthington MD on 09/04/2025 at 07:44 AM EST Sign off status: Pending * Provider: Yaya Worthington M.D. Date: 0 10/10/2024 Generated for Arun vanegas/Marycarmen/Lukeitting on: 11/05/2024 07:44 AM EST History and Physical Notes * HPI (History of Present Illness) Category Sub-Category Detail Notes Category Not es HPI Patient is here today for Pt sts she is here today for a 2 month check up. Pt sts she has no concerns other than her rt arm/shoulder pain Examination Category Sub-Category Detail Notes Category Not es General Examination HEENT: unremarkable Heart: RSR, no ectopics Lungs: clear to auscultatio n Abdomen: soft and nontender Extremities: no leg edema. Should er exam today suggests deltoid tenderness at shoulder and insertion. Also some biceps tenderness General Appearance: NAD Skin: normal, no rash Neurologic Exam: Intact, gait normal Neck: supple, no lymphaden opathy Oral cavity: no lesions, mucosa m oist and WNL, no erythema Peripheral pulses: Back: normal, mild dorsal kyphosis Chest: normal shape and exp ansion Consultation Request Notes Referral Date Referring Provider Referred Provider Not es 10/10/2024 Yaya Worthington , deltoid bu rsitis
--- OUTSIDE RECORDS SUMMARY | 2025-03-28 06:45 | XMS_ITS ---
Author Organization [facility] Address [address] [facility] [address] [facility] [address] [place] [id number] Care Team Providers Care Cold Roll Catcher Name Role Phone Yaya Worthington Primary Care Provider Allergies Allergen (clinical drug ingredient) Drug/Non Drug Allergy documented on EMR Reaction Allergy Type Onset Date Status clarithromycin Clarithromycin Unknown Drug Allergy Active Results Component Value Reference Range Notes Glycohemoglobin A1c (in hous e) Reviewed date:04/11/2025 12:29:30 PM Interpretation:9 Performing Lab: Notes/Report: 9 glycohemoglobin 9.0% 5 - 6.5 % P-Comprehensive Metabolic Pa muna (CMP) Reviewed date:04/11/2025 12:29:30 PM Interpretation:gluc 105 Performing Lab: Notes/Report: Test performed by [facility] [facility] , [address], [place] [address] Hank Ayala MD, Senior Systems Administrator CLIA: [id number] Sodium 143 135-145 mmol/L Potassium 5.0 3.5-5.3 mmol/L Chloride 106 97-108 mmol/L CO2 28 20-32 mmol/L Glucose 105 65-99 mg/dL BUN 22 8-23 mg/dL Creatinine 0.85 0.50-1.00 mg/dL Calcium 9.6 8.6-10.4 mg/dL eGFR by Creatinine 75 >59 mL/min/1.73m2 Protein 6.5 6.0-8.3 g/dL Albumin 4.1 3.5-5.3 g/dL Alkaline Phosphatase 86 35-121 IU/L ALT (SGPT) 22 <5-47 IU/L AST (SGOT) 18 <5-40 IU/L Bilirubin, Total 0.7 <0.2-1.2 mg/dL A/G Ratio 1.7 1.1-2.5 REASON FOR VISIT check up, needs colorectal cancer screening, Needs annual medication review and Functional Status Assessment, Needs labs. mammogram, & bone density screening Medications Medication SIG (Take, Route, Frequency, Duration) Notes Start Date End Date Status Gemfibrozil 600 MG Take 1 tablet by giovanni th twice daily; Duration: 90 Active Risedronate Sodium 35 MG [address] 30 minutes before the first food or drink, other than water, of the day Orally once weekly; Duration: 90 days Active amLODIPine-Olmesartan 10-40 MG 1 tablet Orally Once a day; Duration: 90 days Active Metoprolol Succinate ER 50 MG Take 1 tablet by mouth once daily; Duration: 30 Active Triamterene-HCTZ 37.5-25 MG Take 1 tablet by mouth once daily; Duration: 90 Active Levothyroxine Sodium 50 MCG Take 1 tablet by mouth once daily; Duration: 90 Active Rosuvastatin Calcium 40 MG 1 tab(s) oral ly Once a day; Duration: 90 days Active CeleBREX 200 MG 1 capsule with food Orally Once a day; Duration: 30 day(s) 10/03/2024 Active Vascepa 1 GM TAKE 2 CAPSULES BY [facility] TWICE DAILY; Duration: 30 Active Dexcom G7 Sensor - as directed; Duratio n: 90 days 10/12/2023 Active Dexcom G7 Out And Out Cigar Maker Hand - as directed 10/12/2023 Active Farxiga 10 MG Take 1 tablet by giovanni th once daily Active Multivitamin - 1 tab(s) orally once a day; Duration: 30 day(s) Active metFORMIN HCl 1000 MG 1 tab(s) orally Once a day Active Toujeo SoloStar 300 UNIT/ML 44 units subcutaneously once a day Active NovoLOG FlexPen 100 UNIT/ML 8units am and 12 units pm Subcutaneous twice a day Active Ozempic (0.25 or 0.5 MG/DOSE) 2 MG/3ML as directed Subcutaneous Active Vital Signs Blood pressure systolic 142 mm Hg 03/28/20 25 Blood pressure diastolic 78 mm Hg 025 Heart Rate 61 /min 03/28/2025 Height 63.5 in 03/28/2025 Weight 166.8 lbs 03/28/2025 BMI 29.08 kg/m2 03/28/2025 Encounters Encounter Location Date Provider Diagnosis [facility] [address] [facility] [address] [place], [place] [id number] 03/28/2025 Yaya Worthington Type 2 diabetes viki itus with other circulatory complications E11.59 ; Essential hypertension I10 ; Status post angioplasty with stent Z95.9 ; Insulin long-term use Z79.4 ; Fibrocystic breast disease (FCBD), unspecified laterality N60.19 ; Osteoporosis M81.0 ; Mixed hyperlipidemia E78.2 and BMI 29.0-29.9,adult Z68.29 Assessments Encounter Date Diagnosis (ICD Code) Assessment Notes Treatment Notes Treatment Clinical Notes Section Notes 03/28/2025 Type 2 diabetes mellitus with other circulatory complications (ICD-10 - E11.59) 03/28/2025 Essential hypertension (ICD-10 - I10) 03/28/2025 Status post angioplasty with stent (ICD-10 - Z95.9) 03/28/2025 Insulin long-term use (ICD-10 - Z79.4) 03/28/2025 Fibrocystic breast disease (FCBD), unspecified laterality (ICD-10 - N60.19) 03/28/2025 Osteoporosis (ICD-10 - M81.0) 03/28/2025 Mixed hyperlipidemia (ICD-10 - E78.2) 03/28/2025 BMI 29.0-29.9,adult (ICD-10 - Z68.29) Plan Of Treatment Pending Test Test Name Order Date DEXA Hip and Spine 03/28/2025 Mammogram 03/28/2025 Next Appt Details Follow Up: 3 Months, Reason: Provider Name:Yaya Robles , 09/19/2025 10:45:00 AM, [address] [facility] [address] [facility], [address], [place], [place], [id number], Progress Notes * HALIKatrinaAbdiasOB:1960 ( 65 yo F)Acc No.[id number]:03/28/2025 Progress Notes Patient: Chiqui KINSEY Provider: Yaya Worthington M.D. :1960 A ge:64 Y S ex:Female Date:03/28/2025 Phone: Address:[address] [place] [address] [place] [address], [id number] Subjective: * Chief Complaints: * 1 . Check up. 2. Needs colorectal cancer screening. 3. Needs annual medication review and Functional Status Assessment. 4. Needs labs. mammogram, & bone density screening. * HPI: H PI: Patient is here today for P t here for a checkup. Pt is not fasting. A nkle/Foot: Pt has a place on her left foot thats she wants the DR to look at. Left heel pain. AM pain. S houlder/Upper arm: Dr. Buck has injected the right shoulder and she has had therapy which has helped ROM. * ROS: D ERMATOLOGY: no R bridget. [...] mouth once daily , Taking Dexcom G7 Out And Out Cigar Maker Hand - Device as directed , Taking Dexcom G7 Sensor - Miscellaneous as directed , Taking Vascepa 1 GM Capsule TAKE 2 CAPSULES BY MOUTH TWICE DAILY , Taking CeleBREX 200 MG Capsule 1 capsule with food Orally Once a day , Taking Rosuvastatin Calcium 40 MG Tablet 1 tab(s) orally Once a day , Taking Levothyroxine Sodium 50 MCG Tablet Take 1 tablet by mouth once daily , Taking Gemfibrozil 600 MG Tablet Take 1 tablet by mouth twice daily , Taking Triamterene-HCTZ 37.5-25 MG Tablet Take 1 tablet by mouth once daily , Taking Metoprolol Succinate ER 50 MG Tablet Extended Release 24 Hour Take 1 tablet by mouth once daily , Taking amLODIPine-Olmesartan 10-40 MG Tablet 1 tablet Orally Once a day , Taking Risedronate Sodium 35 MG Tablet 1 tablet at least 30 minutes before the first food or drink, other than water, of the day Orally once weekly , Medication List reviewed and reconciled with the patient * Allergies: C larithromycin. Objective: * Vitals: W t: 166.8, Temp: 98,4, BP: 142/78, HR: 61, Nurse: pe, Ht: 63.5, BMI:29.08. * Examination: G eneral Examination: General Appearance: N AD. H EENT: u nremarkable.?Oral cavity: n o lesions, mucosa moist and WNL, no erythema. N clara: s upple, no lymphadenopathy. C hest: n ormal shape and expansion. H eart: R SR, no ectopics, aortic murmur. L ungs: c lear to auscultation. A bdomen: soft and nontender. N eurologic Exam: I ntact, gait normal. S kin: n ormal, no rash. B ack: normal, mild dorsal kyphosis. E xtremities: n o leg edema. Left heel tenderness c/w heel spur. Shoulder with improved ROM today.. Assessment: * Assessment: 1. T ype 2 diabetes mellitus with other circulatory complications - E11.59 (Primary) 2 . E ssential hypertension - I10 3 . S tatus post angioplasty with stent - Z95.9 4 . I nsulin long-term use - Z79.4 5 . F ibrocystic breast disease (FCBD), unspecified laterality - N60.19 6 . O steoporosis - M81.0 7 . M ixed hyperlipidemia - E78.2 8 . B NC 29.0-29.9,adult - Z68.29 Plan: * Treatment: Value Reference Range A /G Ratio 1.7 1.1-2.5 - * A lbumin 4.1 3.5-5.3 - g/dL * A lkaline Phosphatase 86 35-121 - IU/L * A LT (SGPT) 22 <5-47 - IU/L * A ST (SGOT) 18 <5-40 - IU/L * B ilirubin, Total 0.7 <0.2-1.2 - mg/dL * B UN 22 8-23 - mg/dL * C alcium 9.6 8.6-10.4 - mg/dL * C hloride 106 97-108 - mmol/L * C O2 28 20-32 - mmol/L * C reatinine 0.85 0.50-1.00 - mg/dL * G lucose 105 H 65-99 - mg/dL * P otassium 5.0 3.5-5.3 - mmol/L * S odium 143 135-145 - mmol/L * P rotein 6.5 6.0-8.3 - g/dL * e GFR by Creatinine 75 >59 - mL/min/1.73m2 * Yancy Leahy 04/11/20 25 12:29:23 PM EDT > See phone encounter ?LAB: Glycohemoglobin A1c (in house) (Collection Date & Time - 03/28/2025)?9 * Value Reference Range g lycohemoglobin 9.0% 5 - 6.5 % * Brigette Gibbs 03/28/2025 1 2:50:42 PM EDT > ArmondYancy cabrera Ann 04/11/2025 12:29:23 PM EDT > See phone encounter 2.?Fibrocystic breast disease (FCBD), unspecified laterality?Imaging: Mammogram* Luci Acosta 03/31/2025 02:3 9:53 PM EDT > faxed to [facility] Scheduling 3.?Osteoporosis?Imaging: DEXA Hip and Spine* Luci Acosta 03/31/2025 02:4 0:03 PM EDT > faxed to [facility] Scheduling * Procedure Codes: G 2211 Complex e/[place], [address] GLYCATED HEMOGLOBIN TEST, Modifiers: QW , 3046F HEMOGLOBIN A1C LEVEL > 9.0%, 1036F TOBACCO NON-USER, G8420 BMI<30 AND >=22 CALC & DOCU, G8950 PREHTN/HTN BP DOC INDCD F/U DOC, G8753 MOST RECENT SYSTOLIC BP >= 140MM HG, G8754 MOST RECENT DIASTOLIC BP < 90MM HG * Follow Up: 3 Months * Images: Billing Information: * Visit Code: 92127 Office Visit, Est Pt., Level 4. * Procedure Codes: G2211 Complex e/[place]. [address] GLYCATED HEMOGLOBIN TEST. Modifiers: QW 3046F HEMOGLOBIN A1C LEVEL > 9.0%. 1036F TOBACCO NON-USER. G8420 BMI<30 AND >=22 CALC & DOCU. G8950 PREHTN/HTN BP DOC INDCD F/U DOC. G8753 MOST RECENT SYSTOLIC BP >= 140MM HG. G8754 MOST RECENT DIASTOLIC BP < 90MM HG. * Electronic signature of Yaya Worthington MD on 09/04/2025 at 07:44 AM EST Sign off status: Pending * Provider: Yaya Worthington M.D. Date: 0 03/28/2025 Generated for Arun vanegas/Maig/eTransmitting on: 1 11/05/2024 07:44 AM EST History and Physical Notes * HPI (History of Present Illness) Category Sub-Category Detail Notes Category Not es Shoulder/Upper arm Dr. Buck has injected the right shoulder and she has had therapy which has helped ROM HPI Patient is here toda y for Pt here for a checkup. Pt is not fasting Examination Category Sub-Category Detail Notes Category Not es General Examination HEENT: unremarkable Heart: RSR, no ectopics, ao rtic murmur Lungs: clear to auscultatio n Abdomen: soft and nontender Extremities: no leg edema. Left h eel tenderness c/w heel spur. Shoulder with improved ROM today. General Appearance: NAD Skin: normal, no rash Neurologic Exam: Intact, gait normal Neck: supple, no lymphaden opathy Oral cavity: no lesions, mucosa m oist and WNL, no erythema Peripheral pulses: Back: normal, mild dorsal kyphosis Chest: normal shape and exp ansion
--- OUTSIDE RECORDS SUMMARY | 2025-04-24 10:00 | XMS_ITS ---
Author Organization [facility] Address [address] [facility] [address] [place] [phone] Care Team Providers Care Technical Sales Support Manager Name Role Phone Yaya Worthington Primary Care Provider Allergies Allergen (clinical drug ingredient) Drug/Non Drug Allergy documented on EMR Reaction Allergy Type Onset Date Status clarithromycin Clarithromycin Unknown Drug Allergy Active REASON FOR VISIT injection for foot Medications Medication SIG (Take, Route, Frequency, Duration) Notes Start Date End Date Status NovoLOG FlexPen 100 UNIT/ML 8units am and 12 units pm Subcutaneous twice a day Active Toujeo SoloStar 300 UNIT/ML 44 units subcutaneously once a day Active metFORMIN HCl 1000 MG 1 tab(s) orally On ce a day Active Multivitamin - 1 tab(s) orally once a day; Duration: 30 day(s) Active Farxiga 10 MG Take 1 tablet by giovanni once daily Active Ozempic (0.25 or 0.5 MG/DOSE) 2 MG/3ML as directed Subcutaneous Active Triamterene-HCTZ 37.5-25 MG Take 1 tablet by mouth once daily; Duration: 90 Active amLODIPine-Olmesartan 10-40 MG 1 tablet Orally Once a day; Duration: 90 days Active Risedronate Sodium 35 MG [address] 30 minutes before the first food or drink, other than water, of the day Orally once weekly; Duration: 90 days Active Metoprolol Succinate ER 50 MG 1 tablet Orally Once a day; Duration: 30 days Active CeleBREX 200 MG 1 capsule with food Orally Once a day; Duration: 30 day(s) 10/03/2024 Not-Taking Rosuvastatin Calcium 40 MG 1 tab(s) orally Once a day; Duration: 90 days Active Levothyroxine Sodium 50 MCG Take 1 tablet by mouth once daily; Duration: 90 Active Gemfibrozil 600 MG Take 1 tablet by giovanni th twice daily; Duration: 90 Active Vascepa 1 GM TAKE 2 CAPSULES BY Graham LEWIS TWICE DAILY; Duration: 30 Active Dexcom G7 Duplication Specialist - as directed 10/12/2023 Active Dexcom G7 Sensor - as directed; Duratio n: 90 days 10/12/2023 Active Vital Signs Blood pressure systolic 90 mm Hg 04/24/20 25 Blood pressure diastolic 60 mm Hg 025 Heart Rate 69 /min 04/24/2025 Height 63.5 in 04/24/2025 Weight 163.2 lbs 04/24/2025 BMI 28.45 kg/m2 04/24/2025 Encounters Encounter Location Date Provider Diagnosis [facility] [address] [place] [id number] 04/24/2025 Yaya Worthington Calcaneal spur of left foot M77.32 Assessments Encounter Date Diagnosis (ICD Code) Assessment Notes Treatment Notes Treatment Clinical Notes Section Notes 04/24/2025 Calcaneal spur of left foot (ICD-10 - M77.32) Plan Of Treatment Next Appt Details Follow Up: 4 Weeks, Reason: Provider Name:Yaya Robles er, 09/19/2025 10:45:00 AM, [address], [place] [id number], Procedure Notes * Category Sub-Category Detail Notes Procedure-other injection of heel consent signed , Betadine prep, 1 % lidocaine local, 1 ml lidocaine 1%/ 1 ml of Celestone, significant relief of pain, H2O2, sterile dressing, patient tolerated the procedure well Progress Notes * Charanjit GARCIAOB:1960 ( 65 yo F)Acc No.[id number]:04/24/2025 Progress Notes Patient: Chiqui KINSEY Provider: Yaya Worthington M.D. :1960 A ge:64 Y S ex:Female Date:04/24/2025 Phone: Address:[facility] [id number] Subjective: * Chief Complaints: * 1 . Injection for foot. * HPI: A nkle/Foot: The pt is here today with c/o pain in the bottom of the left heel. Pt states it is very painful to walk on it. Pt states this has been going on for about 2 months and has gotten worse. * ROS: D ERMATOLOGY: no R bridget. [...] mouth once daily , Taking Dexcom G7 Duplication Specialist - Device as directed , Taking Dexcom G7 Sensor - Miscellaneous as directed , Taking Vascepa 1 GM Capsule TAKE 2 CAPSULES BY MOUTH TWICE DAILY , Taking Rosuvastatin Calcium 40 MG Tablet [...] the day Orally once weekly , Taking Metoprolol Succinate ER 50 MG Tablet Extended Release 24 Hour 1 tablet Orally Once a day , Not-Taking CeleBREX 200 MG Capsule 1 capsule with food Orally Once a day , Medication List reviewed and reconciled with the patient * Allergies: C larithromycin. Objective: * Vitals: W t: 163.2, Temp: 98.2, BP: 90/60, HR: 69, Nurse: KARO, Ht: 63.5, BMI:28.45. * Examination: G eneral Examination: General Appearance: N AD, appears healthy, pleasant. H eart: R SR. E xtremities: t enderness at the left heel, plantar aspect. Assessment: * Assessment: 1. C alcaneal spur of left foot - M77.32 (Primary) Plan: * Treatment: * Procedures: P rocedure-other: injection of heel c onsent signed, Betadine prep, 1 % lidocaine local, 1 ml lidocaine 1%/ 1 ml of Celestone, significant relief of pain, H2O2, sterile dressing, patient tolerated the procedure well. * Procedure Codes: G 2211 Complex e/m visit add on, J0702 Celestone per 3 mg., 39487 DRAIN/INJECT BURSA,HEEL, WRIST, ELBOW ANKLE, OLECRANON BURSA * Follow Up: 4 Weeks * Images: Billing Information: * Visit Code: 65158 Office Visit, Est Pt., Level 2. Modifiers: 25 * Procedure Codes: G2211 Complex e/m visit add on. J0702 Celestone per 3 mg.. DRAIN/INJECT BURSA,HEEL, WRIST, ELBOW ANKLE, OLECRANON BURSA. * Electronic signature of Yaya Worthington MD on 09/04/2025 at 07:43 AM EST Sign off status: Pending * Provider: Yaya Worthington M.D. Date: 0 04/24/2025 Generated for Arun vanegas/Marycarmen/Lukeitting on: 11/05/2024 07:43 AM EST History and Physical Notes * Examination Category Sub-Category Detail Notes Category Not es General Examination Heart: RSR Extremities: tenderness at the le ft heel, plantar aspect General Appearance: NAD, appears healthy , pleasant
--- OUTSIDE RECORDS SUMMARY | 2025-06-20 06:15 | XMS_ITS ---
Author Organization [facility] Address [address] [facility] [address] [facility] [address] [place] [phone] Care Team Providers Care Stain Applicator Name Role Phone Yaya Worthington Primary Care Provider Allergies Allergen (clinical drug ingredient) Drug/Non Drug Allergy documented on EMR Reaction Allergy Type Onset Date Status clarithromycin Clarithromycin Unknown Drug Allergy Active Reason For Referral Reason needs colonoscopy, h x polyps Diagnosis 1 Colon cancer screeni romina (Z12.11) [facility] Referring Provider First Name Yaya Dillard Referring Provider Last Name Ander Referring Provider Speciality Family [facility] ctice Referred Organization [facility] OP Referred Provider CLEMENT MORRIS Referred Address [address] [facility] [address] [facility] [id number], Referred Provider Specialty Gastroentero logy General Notes Luci Acosta 2024 10:25:07 AM > faxed to Dr. Morris office Referral Priority Routine REASON FOR VISIT 3 month check with fasting labs, Also needs colon cancer screening, mammogram, bone density screening, diabetic eye exam, & flu vaccine Medications Medication SIG (Take, Route, Frequency, Duration) Notes Start Date End Date Status Gemfibrozil 600 MG Take 1 tablet by giovanni twice daily; Duration: 90 Active Triamterene-HCTZ 37.5-25 MG Take 1 tablet by mouth once daily; Duration: 90 Active Levothyroxine Sodium 50 MCG 1 tablet in the morning on an empty stomach Orally Once a day; Duration: 90 days Active Rosuvastatin Calcium 40 MG 1 tab(s) orally Once a day; Duration: 90 days Active Metoprolol Succinate ER 50 MG 1 tablet Orally Once a day; Duration: 90 days Active Multivitamin - 1 tab(s) orally once a day; Duration: 30 day(s) Active Farxiga 10 MG Take 1 tablet by giovanni th once daily Active Dexcom G7 Licensed Guide - as directed 10/12/2023 Active Dexcom G7 Sensor - as directed; Duratio n: 90 days 10/12/2023 Active Vascepa 1 GM TAKE 2 CAPSULES BY M OUT TWICE DAILY; Duration: 30 Active NovoLOG FlexPen 100 UNIT/ML 14 AM, 18 PM Subcutaneous twice a day Active Toujeo SoloStar 300 UNIT/ML 52 units subcutaneously once a day Active metFORMIN HCl 1000 MG 1 tab(s) orally On ce a day Active Ozempic (0.25 or 0.5 MG/DOSE) 2 MG/3ML as directed Subcutaneous Not-Taking CeleBREX 200 MG 1 capsule with food Orally Once a day; Duration: 30 day(s) 10/03/2024 Not-Taking amLODIPine-Olmesartan 10-40 MG 1 tablet Orally Once a day; Duration: 90 days Active Risedronate Sodium 35 MG [address] 30 minutes before the first food or drink, other than water, of the day Orally once weekly; Duration: 90 days Active Immunizations Vaccine Route Administration Date Status Comme nts Fluzone High Dose (65yr and older) IM Intramuscular 06/20/2025 Administered Vital Signs Blood pressure systolic 120 mm Hg 06/20/20 25 Blood pressure diastolic 70 mm Hg 025 Heart Rate 59 /min 06/20/2025 Height 63.5 in 06/20/2025 Weight 163.6 lbs 06/20/2025 BMI 28.52 kg/m2 06/20/2025 Encounters Encounter Location Date [facility] [address] [facility] [address] [phone] 06/20/2025 Yaya Worthington Type 2 diabetes mellitus with other circulatory complications E11.59 ; Essential hypertension I10 ; Status post angioplasty with stent Z95.9 ; Osteopenia M85.80 ; Acute pain of right shoulder M25.511 ; Fibrocystic breast disease (FCBD), unspecified laterality N60.19 ; Insulin long-term use Z79.4 ; Flu vaccine need Z23 ; Colon cancer screening Z12.11 ; Breast cancer screening by mammogram Z12.31 ; Encounter for screening for osteoporosis Z13.820 ; BMI 28.0-28.9,adult Z68.28 and Menopause Z78.0 Assessments Encounter Date Diagnosis (ICD Code) Assessment Notes Treatment Notes Treatment Clinical Notes Section Notes 06/20/2025 Type 2 diabetes mellitus with other circulatory complications (ICD-10 - E11.59) 06/20/2025 Essential hypertension (ICD-10 - I10) 06/20/2025 Status post angioplasty with stent (ICD-10 - Z95.9) 06/20/2025 Osteopenia (ICD-10 - M85.80) 06/20/2025 Acute pain of right shoulder (ICD-10 - M25.511) 06/20/2025 Fibrocystic breast disease (FCBD), unspecified laterality (ICD-10 - N60.19) 06/20/2025 Insulin long-term use (ICD-10 - Z79.4) 06/20/2025 Flu vaccine need (ICD-10 - Z23) 06/20/2025 Colon cancer screening (ICD-10 - Z12.11) 06/20/2025 Breast cancer screening by mammogram (ICD-10 - Z12.31) 06/20/2025 Encounter for screening for osteoporosis (ICD-10 - Z13.820) 06/20/2025 BMI 28.0-28.9,adult (ICD-10 - Z68.28) 06/20/2025 Menopause (ICD-10 - Z78.0) Plan Of Treatment Pending Test Test Name Order Date DEXA Hip and Spine 06/20/2025 Mammogram 06/20/2025 Referrals Referral Date Details 06/20/2025 06/20/2025, needs co lonoscopy, hx polyps, CLEMENT MORRIS, [address] [place], [place], [id number], Next Appt Details Follow Up: 3M, Reason: Provider Name:Yaya Robles er, 09/19/2025 10:45:00 AM, [address], [address] , [place], [place], [phone], Progress Notes * Charanjit GARCIAOB:1960 ( 65 yo F)Acc No.[id number]:06/20/2025 Progress Notes Patient: Chiqui KINSEY Provider: Yaya Worthington M.D. :1960 A ge:64 Y S ex:Female Date:06/20/2025 Phone: Address:[address], [id number] Subjective: * Chief Complaints: * 1 . 3 month check with fasting labs. 2. Also needs colon cancer screening, mammogram, bone density screening, diabetic eye exam, & flu vaccine. * HPI: C ardiology: The patient is here today for a check-up on Hypertension, Hyperlipidemia, and Diabetes. Pt states she is doing good and denies any new concerns. Pt is fasting. A nkle/Foot: The pt is here for a recheck on left foot pain. Injection did help, but pain recurred. Pt states the pain is maybe a little better but stil hurts off and on. Pt states the pain is worse with standing for a long period and sometimes with walking. S houlder/Upper arm: Has had close follow-up by Dr. Buck. E ndocrinology: Endocrinology D/C'd Ozempic. Insulin dose increased. * ROS: C ONSTITUTIONAL: Positive for [facility]? Yes Ortho and Endocrine Change in medication since last visit? Yes Are you taking antibiotics? No Are you taking steroids? No. D ERMATOLOGY: no R bridget. n o [...] 11/02/2017, colonoscopy 08/2017, pancreatic biopsy, Dr. Escalona , Colonoscopy, Dr. Morris, tubular adenomas 08/22/2017. * Hospitalization/Major Diagno stic Procedure: H MH [...] ouside US: no. * Medications: T aking NovoLOG FlexPen 100 UNIT/ML Solution Pen-injector 14 AM, 18 PM Subcutaneous twice a day , Taking Toujeo SoloStar 300 UNIT/ML Solution Pen-injector 52 units subcutaneously once a day , Taking metFORMIN HCl 1000 MG Tablet 1 tab(s) orally Once a day , Taking Multivitamin - Tablet 1 tab(s) orally once a day , Taking Farxiga 10 MG Tablet Take 1 tablet by mouth once daily , Taking Dexcom G7 Licensed Guide - Device as directed , Taking Dexcom G7 Sensor - Miscellaneous as directed , Taking Vascepa 1 GM Capsule TAKE 2 CAPSULES BY MOUTH TWICE DAILY , Taking Gemfibrozil 600 MG Tablet Take 1 tablet by mouth twice daily , Taking Triamterene-HCTZ 37.5-25 MG Tablet Take 1 tablet by mouth once daily , Taking Levothyroxine Sodium 50 MCG Tablet 1 tablet in the morning on an empty stomach Orally Once a day , Taking Rosuvastatin Calcium 40 MG Tablet 1 tab(s) orally Once a day , Taking Metoprolol Succinate ER 50 MG Tablet Extended Release 24 Hour 1 tablet Orally Once a day , Taking amLODIPine- Olmesartan 10-40 MG Tablet 1 tablet Orally Once a day , Taking Risedronate Sodium 35 MG Tablet 1 tablet at least 30 minutes before the first food or drink, other than water, of the day Orally once weekly , Not-Taking Ozempic (0.25 or 0.5 MG/DOSE) 2 MG/3ML Solution Pen-injector as directed Subcutaneous , Not-Taking CeleBREX 200 MG Capsule 1 capsule with food Orally Once a day , Medication List reviewed and reconciled with the patient * Allergies: C larithromycin. Objective: * Vitals: W t: 163.6, Temp: 98.5, BP: 120/70, HR: 59, O2 Sat: 98% on RA, Nurse: KARO, Ht: 63.5, BMI:28.52. * Examination: G eneral Examination: General Appearance: N AD. H EENT: u nremarkable.?Oral cavity: n o lesions, mucosa moist and WNL, no erythema. N clara: s upple, no lymphadenopathy. C hest: n ormal shape and expansion. H eart: R SR, occasional e ctopics, aortic murmur. L ungs: c lear to [...] angioplasty with stent - Z95.9 4 . O steopenia - M85.80 5 . A cute pain of right shoulder - M25.511 6 . F ibrocystic breast disease (FCBD), unspecified laterality - N60.19 7 . I nsulin long-term use - Z79.4 8 . F jaimee vaccine need - Z23 9 . C olon cancer screening - Z12.11 1 0. B reast cancer screening by mammogram - Z12.31 1 1. E ncounter for screening for osteoporosis - Z13.820 1 2. B FL 28.0-28.9,adult - Z68.28 1 3.?Menopause - Z78.0 Plan: * Treatment: 2.?Fibrocystic breast disease (FCBD), unspecified laterality?Imaging: Mammogram* Luci Acosta 06/20/2025 12:4 7:26 PM EDT > faxed to [facility] Scheduling 3.?Colon cancer screening? Referral To:CLEMENT MORRIS??Gastroenterology ?Reason:needs colonoscopy, hx polyps 4.?Breast cancer screening by mammogram?Imaging: Mammogram* Luci Acosta 06/20/2025 12:4 7:26 PM EDT > faxed to [facility] Scheduling 5.?Encounter for screening for osteoporosis?Imaging: DEXA Hip and Spine* Luci Acosta 06/20/2025 12:4 7:11 PM EDT > faxed to [facility] Scheduling 6.?Menopause?Imaging: DEXA Hip and Spine* Luci Acosta 06/20/2025 12:4 7:11 PM EDT > faxed to [facility] Scheduling * Immunizations: Fluzone High Dose (65yr and older) : 0.5 mL (Route: Intramuscular) given by Carine Antonio on Left Deltoid * Procedure Codes: G 2211 Complex e/m visit add on, 1036F TOBACCO NON-USER, G8420 BMI<30 AND >=22 CALC & DOCU, G8950 PREHTN/HTN BP DOC INDCD F/U DOC, G8752 MOST RECENT SYSTOLIC BP < 140MM HG, G8754 MOST RECENT DIASTOLIC BP < 90MM HG, 3074F SYST BP LT 130 MM HG, 3078F DIAST BP < 80 MM HG * Follow Up: 3 M * Images: Billing Information: * Visit Code: 09918 Office Visit, Est Pt., Level 4. * Procedure Codes: G2211 Complex e/m visit add on. 1036F TOBACCO NON-USER. G8420 BMI<30 AND >=22 CALC & DOCU. G8950 PREHTN/HTN BP DOC INDCD F/U DOC. G8752 MOST RECENT SYSTOLIC BP < 140MM HG. G8754 MOST RECENT DIASTOLIC BP < 90MM HG. 3074F SYST BP LT 130 MM HG. 3078F DIAST BP < 80 MM HG. * Electronic signature of Yaya Worthington MD on 09/04/2025 at 07:44 AM EST Sign off status: Pending * Provider: Yaya Worthington M.D. Date: 1 Generated for Dorotheai romina/Marycarmen/eTransmitting on: 11/05/2024 07:44 AM EST History and Physical Notes * Examination Category Sub-Category Detail Notes Category Not es General Examination HEENT: unremarkable Heart: RSR, occasional ecto pics, aortic murmur Lungs: clear to auscultatio n Abdomen: [...] Date Referring Provider Referred Provider Not es 06/20/2025 Yaya Worthington EARL needs col onoscopy, hx polyps
--- OUTSIDE RECORDS SUMMARY | 2025-06-23 09:30 | XMS_ITS ---
Author Organization [facility] Address [address] [facility] [address] [facility] [address] [place] [id number] Care Team Providers Care Level Glass Forming Machine Operator Name Role Phone Yaya Worthington Primary Care Provider [phone] REASON FOR VISIT 1 month Encounters Encounter Location Date Provider Diagnosis [facility] [address] [place], [place] [phone] 06/23/2025 Yaya Worthington Plan Of Treatment Next Appt Details Provider Name:Yaya Robles er, 09/19/2025 10:45:00 AM, [address], [address], [place], [place], [phone], Progress Notes * Charanjit GARCIAOB:1960 ( 65 yo F)Acc No.[id number]:06/23/2025 Progress Notes Patient: Chiqui KINSEY Provider: Yaya Worthington M.D. :1960 A ge:64 Y S ex:Female Date:06/23/2025 Phone: Address:[facility] [id number] Subjective: * Chief Complaints: * 1 . 1 month. * Medical History: Objective: * Vitals: Assessment: Plan: * Treatment: * Images: Billing Information: * Visit Code: * Procedure Codes: * Electronic signature of Yaya Worthington MD on 09/04/2025 at 07:43 AM EST Sign off status: Pending * Provider: Yaya Worthington M.D. Date: Generated for Printi ng/Faxing/eTransmitting on: 11/05/2024 07:43 AM EST
--- OUTSIDE RECORDS SUMMARY | 2025-08-12 10:15 | XMS_ITS ---
Author Organization [facility] Address [address] [facility] [address] [place] [id number] Care Team Providers Care Motorcycle Sales Associate Name Role Phone Yaya Worthington Primary Care Provider [phone] Kathya Resendez Unavailable [phone] Allergies Allergen (clinical drug ingredient) Drug/Non Drug Allergy documented on EMR Reaction Allergy Type Onset Date Status clarithromycin Clarithromycin Unknown Drug Allergy Active REASON FOR VISIT both sides hurt when breathing,coughing Medications Medication SIG (Take, Route, Frequency, Duration) Notes Start Date End Date Status Ozempic (0.25 or 0.5 MG/DOSE) 2 MG/3ML as directed Subcutaneous Not-Taking Gemfibrozil 600 MG 1 tablet 30 minutes before morning and evening meals Orally Twice a day; Duration: 90 days Active CeleBREX 200 MG 1 capsule with food Orally Once a day; Duration: 30 day(s) 10/03/2024 Not-Taking Risedronate Sodium 35 MG [address] 30 minutes before the first food or drink, other than water, of the day Orally once weekly; Duration: 90 days Active Nabumetone 500 MG 1 tablet Orally 08/12/2025 Active amLODIPine-Olmesartan 10-40 MG 1 tablet Orally Once a day; Duration: 90 days Active Metoprolol Succinate ER 50 MG 1 tablet Orally Once a day; Duration: 90 days Active Triamterene-HCTZ 37.5-25 MG Take 1 tablet by mouth once daily; Duration: 90 Active Rosuvastatin Calcium 40 MG 1 tab(s) orally Once a day; Duration: 90 days Active Levothyroxine Sodium 50 MCG 1 tablet in the morning on an empty stomach Orally Once a day; Duration: 90 days Active Farxiga 10 MG Take 1 tablet by once daily Active Multivitamin - 1 tab(s) orally once a day; Duration: 30 day(s) Active Dexcom G7 Sensor - as directed; Duratio n: 90 days 10/12/2023 Active Dexcom G7 Digital Strategist Senior Manager - as directed 10/12/2023 Active Vascepa 1 GM TAKE 2 CAPSULES BY M DEBBIE TWICE DAILY; Duration: 30 Active Toujeo SoloStar 300 UNIT/ML 52 units subcutaneously once a day Active NovoLOG FlexPen 100 UNIT/ML 14 AM, 18 PM Subcutaneous twice a day Active metFORMIN HCl 1000 MG 1 tab(s) orally On ce a day Active Vital Signs Blood pressure systolic 118 mm Hg 08/12/20 Blood pressure diastolic 74 mm Hg 025 Heart Rate 69 /min 08/12/2025 Height 63.5 in 08/12/2025 Weight 165 lbs 08/12/2025 BMI 28.77 kg/m2 08/12/2025 Encounters Encounter Location Date Provider Diagnosis [facility] [address] [facility] 36 [facility] [address] [place] [id number] 08/12/2025 Kathya Resendez Pleurisy R09.1 Assessments Encounter Date Diagnosis (ICD Code) Assessment Notes Treatment Notes Treatment Clinical Notes Section Notes 08/12/2025 Pleurisy (ICD-10 - R09.1) 08/12/2025 Other Call if she develops fever or other respiratory symptoms. Plan Of Treatment Medication Medication Name Sig Start Date Stop Date Notes Nabumetone 500 MG 1 tablet Orally Twice a day 08/12/2025 Treatment Notes Assessment Notes Other Call if she develops fever or other respiratory symptoms. Next Appt Details Follow Up: prn, Reason: Provider Name:Yaya Robles , 09/19/2025 10:45:00 AM, [address] [facility], [address], [place], [phone], Progress Notes * Charanjit GARCIAOB:1960 ( 65 yo F)Acc No.[id number]:08/12/2025 Progress Notes Patient: Chiqui KINSEY Provider: Kathya Resendez M.D. :1960 A ge:65 Y S ex:Female Date:08/12/2025 Phone: Address:[address] [place], [place] [address]D[place], [id number] Pcp:Yaya Worthington Subjective: * Chief Complaints: * 1 . Both sides hurt when breathing,coughing. * HPI: E NT/respiratory: She presents with a 5-day history of bilateral pleuritic type chest pain that is noticeable with coughing or deep breathing. She denies excessive cough and no production of sputum or hemoptysis. No complaints of fever. No other respiratory symptoms. * ROS: D ERMATOLOGY: no R bridget. n o H josé. G ASTROENTEROLOGY: no N ausea. n o V omiting. n o D iarrhea.? U ROLOGY: no D ifficulty urinating. n o B lood in urine. 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 * Social History: C URRENT TOBACCO USE: No S moking Status: Patient does NOT smoke. [...] mouth once daily , Taking Dexcom G7 Digital Strategist Senior Manager - Device as directed , Taking Dexcom G7 Sensor - Miscellaneous as directed , Taking Vascepa 1 GM Capsule TAKE 2 CAPSULES BY MOUTH TWICE DAILY , Taking Triamterene-HCTZ 37.5-25 MG Tablet Take [...] tablet Orally Once a day , Taking amLODIPine-Olmesartan 10-40 MG Tablet 1 tablet Orally Once a day , Taking Risedronate Sodium 35 MG Tablet 1 tablet at least 30 minutes before the first food or drink, other than water, of the day Orally once weekly , Taking Gemfibrozil 600 MG Tablet 1 tablet 30 minutes before morning and evening meals Orally Twice a day , Not- Taking Ozempic (0.25 or 0.5 MG/DOSE) 2 MG/3ML Solution Pen-injector as directed Subcutaneous , Not-Taking CeleBREX 200 MG Capsule 1 capsule with food Orally Once a day , Medication List reviewed and reconciled with the patient * Allergies: C larithromycin. Objective: * Vitals: W t: 165, Temp: 97.8, BP: 118/74, HR: 69, Nurse: SF, Ht: 63.5, BMI:28.77. * Examination: E NT/Respiratory: General Appearance: N AD. E yes: P ERRLA, sclera clear. E ars: a uditory canals normal bilaterally, TM's WNL. N ose : n ormal, no lesions, nares patent. O ral cavity : n o erythema or exudate seen on pharynx. N clara : n o cervical lymphadenopathy. H eart : R RR, normal S1 S2, no murmurs. L ungs: c lear to auscultation bilaterally. Assessment: * Assessment: 1. P leurisy - R09.1 (Primary) Plan: * Treatment: 2. O thers Notes: Call if she develops fever or other respiratory symptoms. * Procedure Codes: G 2211 Complex e/m visit add on, G8783 BP SCR PRFRM RCMDD DEFIND SCR INTVL, G8752 MOST RECENT SYSTOLIC BP < 140MM HG, G8754 MOST RECENT DIASTOLIC BP < 90MM HG, 3074F SYST BP LT 130 MM HG, 3078F DIAST BP < 80 MM HG * Follow Up: p rn * Images: Billing Information: * Visit Code: 08474 Office Visit, Est Pt., Level 3. * Procedure Codes: G2211 Complex e/m visit add on. G8783 BP SCR PRFRM RCMDD DEFIND SCR INTVL. G8752 MOST RECENT SYSTOLIC BP < 140MM HG. G8754 MOST RECENT DIASTOLIC BP < 90MM HG. 3074F SYST BP LT 130 MM HG. 3078F DIAST BP < 80 MM HG. * Electronic signature of Kathya Resendez MD on 09/04/2025 at 07:45 AM EST Sign off status: Pending * Provider: Kathya Resendez M.D. Date: 10/12/2024 Generated for Arun vanegas/Marycarmen/Lukeitting on: 11/05/2024 07:45 AM EST History and Physical Notes * Examination Category Sub-Category Detail Notes Category Not es ENT/Respiratory Oral cavity : no erythema or exudate s een on pharynx Ears: auditory canals norm al bilaterally, TM's WNL Neck : no cervical lymphade nopathy Heart : RRR, normal S1 S2, n o murmurs Lungs: clear to auscultatio n bilaterally General Appearance: NAD Nose : normal, no lesions, nares patent Eyes: PERRLA, sclera clear
--- NOTE | 2025-09-04 07:42 | MM_ITS ---
PROCEDURE INFORMATION: Exam: MG Bilateral Screening 3D Mammography Exam date and time: 09/04/2025 8:01 AM Age: 65 years old Clinical indication: Screening examination TECHNIQUE: Imaging protocol: Bilateral Screening tomosynthesis and 2D mammography including computer-aided detection (CAD) when performed. COMPARISON: MG MM DIG SCREENING MAMM BI W/CAD 02/22/2024 8:47 AM FINDINGS: MAMMOGRAPHY: Breast composition: The breasts are heterogeneously dense, which may obscure small masses. Mass: No suspicious masses. Architectural distortion: None. Calcifications: No suspicious calcifications. Asymmetric density: None. Skin thickening: None. Axillary adenopathy: None. IMPRESSION: No mammographic evidence of malignancy. Annual screening is recommended unless otherwise clinically indicated. ASSESSMENT: BI-RADS Category 1: Negative.
--- NOTE | 2025-09-04 07:42 | XR_ITS ---
FINAL REPORT CLINICAL HISTORY: SCREENING COMPARISON: 02/22/2024 FINDINGS: Using L1-4, the bone mineral density of the spine is 0.839 g/cm2, corresponding to T-score of -1.9, with a Z-score of 0.0. The bone mineral density change versus baseline is 1.8%. Using the left hip, the bone mineral density of the femoral neck is 0.574 g/cm2, corresponding to a T-score of -2.5 and a Z-score of -0.9. The bone mineral density change versus baseline is 3.2% Using the right hip, the bone mineral density of the femoral neck is 0.5-1 g/cm2, corresponding to a T-score of -3.0 and a Z-score of -1.3. The bone mineral density change versus baseline is -8.9%. NOTE: T-score: Standard deviation compared with peak bone mass of young adult mean. *Following the recommendations of the International Society of Bone densitometry, classification of hip BMD is based on the lower of two T-scores; total hip or femoral neck. IMPRESSION: Diminished bone mineral density of the bilateral hips consistent with osteoporosis. Diminished bone mineral density of the lumbar spine, consistent with osteopenia. Reviewed, Interpreted and Dictated by Ileana Taylor MD Transcribed by Hilary Walsh Authenticated and . [facility]
--- OUTSIDE RECORDS SUMMARY | 2025-09-04 07:43 | XMS_ITS | Continuity of Care Document ---
Author Organization [facility], ENDOCRINOLOGY Address [address] [place] [id number] Care Team Providers Care Contract Sheltered Workshop Supervisor Name Role Phone Yaya ECHEVERRIA Referring Provider Assessment No assessment recorded. Plan of Treatment Reminders Order Date Submit Date Provider Last Modified By Organization Details Last Modified Time Details Appointments RECHECK 2025 10:30A M JAMILA BAKER COMMERCIAL FOOD INSTRUCTOR Not available Not available Not available Lab glucose, fingerst ick, blood [address] [facility] [place], [address] [place], [address], 07/22/2025 08:57:55 hemoglob in A1C, fingerst ick [address] Endocrinology , [facility] [place], [address], 07/22/2025 08:57:56 Referral None recorded . Procedures None recorded . Surgeries None recorded . Imaging None recorded . Medication Orders Mounjaro 2.5 mg/0.5 mL subcutan eous pen injector 2024 025 [facility], [address], [address], 08/12/2025 10:11:03 Jardianc e 25 mg tablet 2024 025 [facility], [address] [place], [address], 07/22/2025 08:58:16 Patient TargetsNo targets recorded. Patient InstructionsNo instructions recorded. Reason for Referral None Reported. Results Created Date Observation Date Name Description Value Unit Range Abnormal Flag Note LastModifiedBy Organization Detail LastModifiedTime 07/22/2007/22/2025 hemog lobin A1C, katya rstic k hemoglobin A1C % 7.5 4.0 - 5.6 Not Available [facility] [place] [address] [place] [address], [phone], 07/22/2025 08:18:27 07/22/2007/22/2025 gluco se, randalle rstic k, blood glucose, fingerstick 128 mg/dL 70 - 100 Not Available [facility] [address] [place] [address], [phone], 07/22/2025 08:18:16 Result Notes None recorded. Problems Name Problem SNOMED Code Status Onset Date Resolution Date Notes Provider Name and Address Organization Details Recorded Time Clinical finding Active 2015 From Automated Load;Provi david: Nathan Patel;Stat us: Active Not Available [facility] 6 04:05:36 [facility] 968161296 Active 2015 From Automated Load;Provi david: Nathan Patel;Stat us: Active Not Available [facility] 6 04:05:36 Transient cerebral ischemia 851195711 Active 2015 Status: Active Not Available [facility] 6 04:05:36 Problem Notes None recorded. Procedures Surgical History Date Name Laterality Status Provider Name and Address Organization Details Recorded Time 04/10/20 MNT Follow Up Visit completed YA [address], JANET [address] [place], [address], [facility] 04/16/2025 10:49:20 02/14/20 MNT Initial Visit completed YA LUTHER [address], JANET [address] [place], [address], [facility] 02/14/2025 08:14:36 Hysterectomy/revise vagina completed [facility] 02/15/2022 14:03:41 cholecystectomy completed [facility] 02/15/2022 14:03:51 section completed [facility] 02/15/2022 14:04:02 Imaging Results None recorded. Procedure Notes None recorded. Medical Equipment None Reported. Allergies Allergen ID Allergen Name Allergen Category Reaction Reaction Severity Criticality Documentation Date Start Date Code Code System Note Provider Name and Address Organization Details Recorded Time [id number] [facility] mycin medicatio n Not available Not available Not available 08/12/2025 RxNorm Not Available smita - External Data Service - prod 10:16:56 Medications Name Sig Start Date Stop Date Status Note LastModified by Organization Details LastModified Time Maxzide-2 5mg 37.5 mg-25 mg tablet Take 1 tablet every day by oral route. active Not Available Not Available No t Available metformin 500 mg tablet Take 1 tablet twice a day by oral route for 90 days. 2024 active Not Available Not Available Not Avai lable Keppra 500 mg tablet Two times a [...] aspart 100 unit/mL (3 mL) subcutane ous 18 units twice daily before meals 2024 active Not Available Not Available Not [...] tablet every day by oral route for 30 days. 2024 active Not Available Not Available Not Avai lable Toujeo SoloStar U-300 Insulin 300 unit/mL (1.5 mL) subcutane ous pen Inject 52 units every day by subcutan eous route in the morning for 90 days. 2024 active Not Available Not Available Not Wanda puente Soliqua 100/33 100 unit-33 mcg/mL subcutane ous [...] MEALS (MAX FOR 45 UNITS PER DAY) 04/10 completed 10/11/24- 01/10/25 Not Available Not Available Not Available Toleopoldo Max U-300 SoloStar Administ er 24 units daily 06/01 completed Not Available Not Available Not Available Mounjaro 2.5 mg/0.5 mL subcutane ous pen injector Inject 2.5 mg every week by subcutan eous route for 30 days. 2024 active Not Available Not Available Not Wanda puente Dexcom G7 Sensor device CHANGE SENSOR EVERY [...] and Address Organization Details Last Updated DateTime 07/22/2025 157.48 cm 29.1 kg/m2 41377.19 g 64 /min 106/84 mm[Hg] I[facility] 07/22/2025 08:14:15 Social History Question Answer Notes LastModified by Organizat ion Details LastModified Time Tobacco Smoking Status Former Smoker Lynette Martin [facility] 02/15/2022 14:03:10 What Is Your Level Of Caffeine Consumption? Occasional Information not available 02/15/2022 What Was The Date Of Your Most Recent Tobacco Screening? 07/22/2025 [email or web address] Information not available 07/22/2025 Has Tobacco Cessation Counseling Been Provided? No [...] available 2021 14:02:43 Medical History Condition Response Diabetes Y Gallbladder Disease Y Thyroid Disease Y High Cholesterol Y Gynecological HistoryNo gynecological history recorded. Obstetrics History GPAL:G 0 P 0 0 0 0 Immunizations Vaccine Type Date Status Note Provider Nam e and Address Organization Details Recorded Time COVID-19, mRNA, LNP-S, PF, 30 mcg/0.3 mL dose 1 completed Not Available [facility] 07/22/2025 08:02:28 COVID-19, mRNA, LNP-S, PF, 30 mcg/0.3 mL dose 1 completed Not Available [facility] 07/22/2025 08:02:28 Pneumococcal conjugate PCV20, polysaccharide [id number] conjugate, adjuvant, PF 4 completed Not Available [facility] 07/22/2025 08:02:28 Influenza, high-dose, quadrivalent, PF 5 completed Not Available [facility] 07/22/2025 08:02:28 Past Encounters Encounter ID Performer Location Encounter Start Date Encounter Closed Date Diagnosis/Indication Diagnosis SNOMED-CT Code Diagnosis ICD10 Code Diagnosis IMO Codes Diagnosis Note [id number] DANETTE VALLE MD [facility]INO [facility] [address] [place] [address] 07/22/2025 08:02:00 07/22/2025 09:08:12 Hyperglycemia due to diabetes mellitus 765192689 E11.65 [id number] - HbA1C is down today to 7.5% from 9.4% 3 months ago. This happened after starting Mounjaro. The- The patient is taking Toujeo 52 units, NovoLog 18 units with meals, Jardiance- Patient is taking Mounjaro without side effects, continue however the patient does not know what her current dose- Discussed with the patient that support watch for hypoglycem ia has been increasing Mounjaro dose likely the mealtime insulin requiremen t will decrease with this check your blood sugar before each meals and at bedtime.- Patient states she does not want CGM because she was very concerned about low reading and eat more than what she should do- Patient denies any feet issues- Patient is following up with ophthalmol ogy- Repeat CMP, lipid panel, microalbum in creatinine next visit- RTC 3 months Hypertriglyceridemia 302 [id number] E78.1 071243 -On 10/07/2024 triglyceri de was 362- C/W Gemfibrozi l, check lipid profile next visit. Acquired hypothyroidism [id number] E03.9 81021 - Continue levothyrox ine 50 mcg daily- Check thyroid level with next visit Uncontrol ed type 2 diabetes mellitus [id number] E11.65 - HbA1C is down today to 7.5% from 9.4% 3 months ago. This happened after starting Mounjaro. The- The patient is taking Toujeo 52 units, NovoLog 18 units with meals, Jardiance- Patient is taking Mounjaro without side effects, continue however the patient does not know what her current dose- Discussed with the patient that support watch for hypoglycem ia has been increasing Mounjaro dose likely the mealtime insulin requiremen t will decrease with this check your blood sugar before each meals and at bedtime.- Patient states she does not want CGM because she was very concerned about low reading and eat more than what she should do- Patient denies any feet issues- Patient is following up with ophthalmol ogy- Repeat CMP, lipid panel, microalbum in creatinine next visit- RTC 3 months Health Concerns Section Related Observation LastModified by Organization Detai ls LastModified Time None Recorded Concern Status LastModified by Organization Details LastModified Time None Recorded Payers Encounter Date Sequence Insurance Name Policy Number Policy [place] Covered Member ID [place] Member ID Guarantor Name 07/22/2025 1 [employer] (MEDICARE REPLACEMENT/A DVANTAGE - PPO) Chiqui Paynealen [id number] Chiqui Hali Notes Date Note Type Note Provider Name and Address Organization Details Recorded Time 07/22/2025 text/html This is a 64-year-old female patient with a past medical history of diabetes mellitus type 2, hyperlipidemia, hypothyroidism who was presented for follow-up for diabetes.Patient is doing well does not have any complaints, she checked her blood sugar often she said that she does not have high readings and she occasionally has low reading but she described in the low 100s when she started to feel symptoms.She is taking Mounjaro and tolerating it well DANETTE VALLE MD [address] [place], [address], [place] [facility] 07/22/2025 08:58:45 OBGyn Episode No OBEpisode recorded.
--- OUTSIDE RECORDS SUMMARY | 2025-09-04 07:44 | XMS_ITS | Data Portability ---
Author Organization [facility] LIZETT EastmanS [place] CLOSED Address [address] [place] [address] Care Team Providers Care Agricultural Sales Representative Name Role Phone Yaya ECHEVERRIA Referring Provider Assessment No assessment recorded. 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 Not available Not available Not available Lab glucose, fingerst ick, blood 2024 025 [email or web address] , [address] [place] [address], [phone], 07/22/2025 08:57:55 hemoglob in A1C, fingerst ick 2024 025 [email or web address] [facility] , [address] [place] [address], [phone], 07/22/2025 08:57:56 glucose, fingerst ick, blood 2024 025 [email or web address] [facility] , [address] [place] [address], [phone], 04/10/2025 11:01:39 hemoglob in A1C, fingerst ick 2024 025 [email or web address] [facility] , [address] [place] [address], [phone], 04/10/2025 11:01:39 glucose, fingerst ick, blood [address] End[facility] , [address] [place], [address], 02/13/2025 10:45:48 hemoglob in A1C, fingerst ick [address] End[facility] , [address] [place], [address], 02/13/2025 10:45:48 Referral None recorded . Procedures None recorded . Surgeries None recorded . Imaging None recorded . Medication Orders Mounjaro 2.5 mg/0.5 mL subcutan eous pen injector 2024 025 [facility], [address] [place] [address], [address], 08/12/2025 10:11:03 Jardianc e 25 mg tablet 2024 025 [facility], [address] [place] [address], [address], 07/22/2025 08:58:16 Jardianc e 25 mg tablet 2024 025 [facility], [address], [address], 04/10/2025 11:01:47 Novolog FlexPen U-100 Insulin aspart 100 unit/mL (3 mL) subcutan eous 2024 025 [facility], [address] [place], [address], 04/10/2025 11:01:46 Toujeo SoloStar U-300 Insulin 300 unit/mL (1.5 mL) subcutan eous pen 2024 025 [facility], [address] [facility], [place], [address], 04/10/2025 11:01:42 Mounjaro 2.5 mg/0.5 mL subcutan eous pen injector 2024 025 [facility], [address], [address], 04/10/2025 11:01:47 Jardianc e 25 mg tablet [address] [facility], [address], [address], 02/13/2025 10:45:48 Novolog FlexPen U-100 Insulin aspart 100 unit/mL (3 mL) subcutan eous [address] [facility], [address], [address], 02/13/2025 10:45:48 Toujeo SoloStar U-300 Insulin 300 unit/mL (1.5 mL) subcutan eous pen [address] [facility], [address], [place], [address], 02/13/2025 10:45:48 Patient TargetsNo targets recorded. Patient InstructionsNo instructions recorded. Reason for Referral None Reported. Results Created Date Observation Date Name Description Value Unit Range Abnormal Flag Note LastModifiedBy Organization Detail LastModifiedTime 01/17/2001/16/2025 hemog lobin A1C, finge rstic k hemoglobin A1C % 9.5 % 4.0 - 5.6 Not Available [facility] [address], [address], 01/16/2025 08:00:18 01/17/2001/16/2025 gluco se, finge rstic k, blood glucose, fingerstick 144 mg/dL 70 - 100 Not Available [facility] S[facility] [address] [place] [address], [address], 01/16/2025 08:00:18 02/14/2002/13/2025 hemog lobin A1C, finge rstic k hemoglobin A1C % 9.3 % 4.0 - 5.6 Not Available [facility] [address] [place] [address], [address], 02/12/2025 10:20:34 02/14/20 25 02/13/2025 gluco se, finge rstic k, blood glucose, fingerstick 180 mg/dL 70 - 100 Not Available [facility] [address] [place] [address], [address], 02/12/2025 10:20:34 04/10/20 25 04/10/2025 hemog lobin A1C, finge rstic k hemoglobin A1C % 9.4 4.0 - 5.6 Not Available [facility] [address], [address], 04/08/2025 15:48:15 04/10/20 25 04/10/2025 gluco se, finge rstic k, blood glucose, fingerstick 158 mg/dL 70 - 100 Not Available [facility] [address], [address], 04/08/2025 15:48:15 07/22/20 25 07/22/2025 hemog lobin A1C, finge rstic k hemoglobin A1C % 7.5 4.0 - 5.6 Not Available [facility] [address], [address], 07/22/2025 08:18:27 07/22/20 25 07/22/2025 gluco se, finge rstic k, blood glucose, fingerstick 128 mg/dL 70 - 100 Not Available [facility] [address], [address], 07/22/2025 08:18:16 Result Notes None recorded. Problems Name Problem SNOMED Code Status Onset Date Resolution Date Notes Provider Name and Address Organization Details Recorded Time Clinical finding Active 2015 From Automated Load;Provi david: Nathan Patel;Stat us: Active Not Available [facility] 6 04:05:36 Sequelae of neurologi sarah disorders 066934388 Active 2015 From Automated Load;Provi david: Nathan Patel;Stat us: Active Not Available [facility] 6 04:05:36 Transient cerebral ischemia 838766201 Active 2015 Status: Active Not Available [facility] 6 04:05:36 Problem Notes Documentation Provider Name and Address Organization Details Recorded Time Crystal Report Developer/dietitian Consu lt Note : [facility] [address] [place] [address] Chiqui Lal 64yo F 1960 #[id number] __RESTYLEDFOOTER__ [facility] [address] [place] [address] , Date: 02/14/2025RE: Chiqui Hali, : 1960, PT ID #[id number] Ht: 5 ft 2 in Wt: 171 [...] by oral route.02/15/22 entered Lynette Martin Multi-Vitamin HP/Xylncmfg20/31/22 entered Lynette Martin NovoLOG Flexpen U-100 Insulin aspart 100 unit/mL (3 mL) xkxasleybujo68-55 units twice daily before meal +2 units to prime the pen02/13/25 prescribed JAMILA BAKER APRN OneTouch Delica Lancets 33 gauge3 times daily02/15/22 entered Taya Mouser OneTouch Verio test strips3 times daily06/09/23 prescribed KURT PEACE MD rosuvastatin 40 mg tabletTake 1 tablet(s) every day by oral route.02/15/22 entered Lynette Martin Synthroid 50 mcg fruoayVklfn53/05/16 entered angelia.246 Toujeo Max U-300 SoloStar 300 [...] times a week from sitdown restaurants ( [employer], [employer]) Pt reports biggest challenge as sweet cakes, [...] Food Intolerance/Allergies: No known food allergies/intolerances Weight recoverer the past year: No Physical Activity Level: [...] with any questions.Counseling Visit Length 60 minutes Assessment/Plan1.Uncontrolled type 2 diabetes mellitus with djwnzcxigqgykK69.65: Type 2 diabetes mellitus with hyperglycemia Return to Office JAMILA BAKER APRN for RECHECK at ENDOCRINOLOGY [facility] on 04/10/2025 at 10:[address], LD for MNT FOLLOW-UP at [facility] on 04/10/2025 at 09:30 AM JAMILA BAKER APRN [address] [place] [address], [address], [facility] 02/20/2025 07:16:41 Crystal Report Developer/dietitian Consu lt Note : [address] [address] Chiqui Lal 64yo F 1960 #[id number] __RESTYLEDFOOTER__ [facility] [address] [place] [address] , Date: 04/16/2025RE: Chiqui Lal, : 1960, PT ID #[id number] Ht: 5 ft 2 in Wt: 171 lbs With clothes BMI: 31.3 Medications Medications not reviewed (last reviewed 04/10/2025) NameDate Source DEXCOM G7 SENSOR DEVICECHANGE SENSOR EVERY 10 DAYS12/20/24 renewed KURT PEACE MD gemfibroziL 600 mg tabletTake 1 tablet(s) twice a day by oral route.02/15/22 entered Lynette Martin Jardiance 25 mg tabletTake 1 tablet(s) every day by oral route for 90 days.04/10/25 prescribed JAMILA BAKER APRN Maxzide-25mg 37.5 mg-25 mg tabletTake 1 tablet(s) every day by oral route.02/15/22 entered Lynette Martin metFORMIN 500 mg tabletTake 1 tablet by mouth twice daily02/12/25 renewed JAMILA BAKER APRN metoprolol tartrate 50 mg tabletTake 1 tablet(s) twice a day by oral route.02/15/22 entered Lynette Martin Mounjaro 2.5 mg/0.5 mL subcutaneous pen injectorInject 2.5 mg every week by subcutaneous route for 30 days.04/10/25 prescribed JAMILA BAKER APRN Multi-Vitamin HP/Qmixwgta53/31/22 entered Lnyette Martin NovoLOG Flexpen U-100 Insulin aspart 100 unit/mL (3 mL) haxprsuxipsy34-88 units twice daily before meal +2 units to prime the pen04/10/25 prescribed JAMILA BAKER APRN OneTouch Delica Lancets 33 gauge3 times daily02/15/22 entered Taya Krishnamurthy OneTouch Verio test strips3 times daily06/09/23 prescribed KURT PEACE MD rosuvastatin 40 mg tabletTake 1 tablet(s) every day by oral route.02/15/22 entered Lynette Martin Synthroid 50 mcg cgvfrvClsyj35/05/16 entered ángelai.246 Alexandra SoloStar U-300 Insulin 300 unit/mL (1.5 mL) subcutaneous penInject 52 unit(s) every day by subcutaneous route in the morning for 90 days.04/10/25 prescribed JAMILA BAKER APRN Vascepa 1 gram [...] recently traveled abroad?: NoAdditional HistoryNone recordedProcedure DocumentationMNT Follow Up Visit:30 minutesMNT Follow Up VisitAssessment: Reason for visit:Diabetes Referring Physician: JAMILA BAKER APRN, NP Weight Change from initial visit: Pt initially weighed 171.2. Pt now weighs 171. Pt has lost 0.2# since initial session. Food and Nutrition intake/adherence to meal plan: Pt reports that she has had difficulty is finding balance at her mealtimes. Noted on foodlog, frequency of sources of carbohydrates without protein source. Pt is often getting carbohydrate sources like fruit as a snack item, missing protein to balance. RD to review mealtime goal amounts and discuss meal ideas and resources that could aid in her finding more balance at mealtimes. Patient Goals follow up: 3 meals consisting of 30-45 grams carbohydrates and 30-35 grams protein per meal: In progress, not met. Willingness to make changes: pt is willing to make changes Barriers to meeting patient goals: no barriers Physical Activity: No reported changes in activity at this time. Nutritional DiagnosisInconsistent carbohydrate intake Related to food-related knowledge deficit, skipped meals/timing of [...] improved BG control, and overall health Nutrition education: RD reviewed nutritional goals with pt, highlighting sources of carbohydrates and using [Information Gateway] website when necessary to review nutrition labels of product purchases and make suggestions for substitutes to help find balance at mealtimes. RD introduced pt to [[employer]ader] as a resource to use when dining out to help pt make informed decisions about food choices/selections at these establishments. RD encouraged pt to use resources like [[employer]] to help generate meal ideas. This education-based program incorporates whole grains, lean proteins, fruits, vegetables, lean protein, and low-fat dairy products within its affordable recipes. RD to evaluate nutrition education needs at follow-up appt. Patient Goals: Continue until met: 3 meals consisting of 30-45 grams carbohydrates and 30-35 grams protein per meal. Understanding of education: Pt asked appropriate questions and verbalized understanding Patient education materials provided: Healthy Eating! Handout [employer]TS[employer] Monitoring and Evaluation:Follow up plan: Pt not scheduled at this time, as pt is going to meet with her primary for a recheck on her BG levels. RD provided contact details to schedule follow-up appt. Provided patient with RD contact info and encouraged patient to contact RD with any questions.Counseling Visit Length 30 minutes Assessment/Plan1.Uncontrolled type 2 diabetes mellitus with onpncyggzhpkcT95.65: Type 2 diabetes mellitus with hyperglycemia Return to Office JAMILA BAKER APRN for RECHECK at ENDOCRINOLOGY SB on 05/22/2025 at 11:15 AM JAMILA BAKER APRN [address] [place], [address], [facility] 04/16/2025 11:12:13 Procedures Surgical History Date Name Laterality Status Provider Name and Address Organization Details Recorded Time 04/10/20 25 MNT Follow Up Visit completed YA LUTHER RD, LD [address] [place], [address], [facility] 04/16/2025 10:49:20 02/14/20 25 MNT Initial Visit completed YA LUTHER, KATHY, LD [address] [place], [address], [facility] 02/14/2025 08:14:36 Hysterectomy/revise vagina completed [facility] 02/15/2022 14:03:41 cholecystectomy completed [facility] 02/15/2022 14:03:51 section completed [facility] 02/15/2022 14:04:02 Imaging Results None recorded. Procedure Notes None recorded. Medical Equipment None Reported. Allergies Allergen ID Allergen Name Allergen Category Reaction Reaction Severity Criticality Documentation Date Start Date Code Code System Note Provider Name and Address Organization Details Recorded Time 982544 [facility] mycin medicatio n Not available Not available [...] day by oral route for 30 days. 11/04/ 2025 active Not Available Not Available Not Avai [...] Updated DateTime 02/13/2025 157.48 cm 31.3 kg/m2 96017.01 g YA LUTHER, RD, LD [address] [place], [address] 02/13/2025 09:18:33 Date Recorded Body height Body mass index (BMI) Body weight Systolic And Diastolic Provider Name and Address Organization Details Last Updated DateTime 02/13/2025 157.48 cm 30.7 kg/m2 67796.08 g 118/60 mm[Hg] Jose Simmons [facility] 02/13/2025 10:20:52 Date Recorded Body height Body mass index (BMI) Body weight Provider Name and Address Organization Details Last Updated DateTime 04/10/2025 157.48 cm 31.3 kg/m2 45087.3 g YA LUTHER, RD, LD [address] [place], [address] 04/10/2025 09:26:35 Date Recorded Body height Heart rate Systolic And Diastolic Provider Name and Address Organization Details Last Updated DateTime 04/10/2025 157.48 cm 58 /min 132/68 mm[Hg] Eloise Edmondson [facility] 04/10/2025 10:35:02 Date Recorded Body height Body mass index (BMI) Body weight Heart rate Systolic And Diastolic Provider Name and Address Organization Details Last Updated DateTime 07/22/2025 157.48 cm 29.1 kg/m2 19177.19 g 64 /min 106/84 mm[Hg] Iman Mesa [facility] 07/22/2025 08:14:15 Social History Question Answer Notes LastModified by [employer] Details LastModified Time Tobacco Smoking Status Former Smoker Lynette king [facility] 02/15/2022 14:03:10 What Is Your Level Of Caffeine Consumption? Occasional Information not available 02/15/2022 What Was The Date Of Your Most Recent Tobacco Screening? 07/22/2025 [email or web address] Information not available 07/22/2025 Has Tobacco Cessation Counseling Been Provided? No Information not available 02/15/2022 Have You Recently Traveled Abroad? No Information not available 02/15/2022 Sex: Unknown Functional Status Question Answer Note LastModified by [employer] Details LastModified Time Do you use any [...] mcg/0.3 mL dose 1 completed Not Available [facility] 07/22/2025 08:02:28 COVID-19, mRNA, LNP-S, PF, 30 mcg/0.3 mL dose 1 completed Not Available [facility] 07/22/2025 08:02:28 Pneumococcal conjugate PCV20, polysaccharide BBG799 conjugate, adjuvant, PF 4 completed Not Available [facility] 07/22/2025 08:02:28 Influenza, high-dose, quadrivalent, PF 5 completed Not Available [facility] 07/22/2025 08:02:28 Past Encounters Encounter ID Performer Location Encounter Start Date Encounter Closed Date Diagnosis/Indication Diagnosis SNOMED-CT Code Diagnosis ICD10 Code Diagnosis IMO Codes Diagnosis Note [id number] CONNOR MOSLEY DO [facility] [address] [place] [address] 02/15/2022 13:50:18 02/15/2022 15:08:27 Uncontrolled type 2 diabetes mellitus 618703092 E11.65 Essential hypertension 58386000 I10 Hyperlipidemia 73368654 E78.5 Diabetic p eripheral neuropathy 162286593 E11.40 Hypercalcemia 57671351 E 83.52 Hypothyroidism 71375259 E03.9 [id number] [facility] MOSLEY [facility] [address] [place] [address] 03/29/2022 12:12:59 03/29/2022 13:50:50 Type 2 diabetes mellitus 64380839 E11.65 Diabetic p eripheral neuropathy 430408758 E11.40 Hyperlipidemia 28084455 E78.5 Hypothyroidism 87074048 E03.9 Essential hypertension 61529967 I10 [id number] CONNOR MOSLEY DO [facility] [address] [place] [id number] 06/01/2022 14:26:48 06/01/2022 16:23:51 Type 2 diabetes mellitus 70104210 E11.65 [id number] [place] [address] [place], [place] [address] 10/31/2022 13:03:09 10/31/2022 13:51:53 Uncontrolled type 2 diabetes mellitus 404421553 E11.65 A1c in the office today is [...] test results from her PCP Dr. Echeverria [id number] KURT PEACE MD [facility] [address] [place] [address] 03/03/2023 12:16:22 03/03/2023 15:15:14 Uncontrolled type 2 diabetes mellitus 517891556 E11.65 A1c in the office today is [...] with the above mentioned plan of care. [id number] [place] [address] [place] [address] 08/22/2023 10:32:22 08/22/2023 13:22:12 Uncontrolled type 2 diabetes mellitus 775732993 E11.65 A1c in the office today is [...] mentioned plan of care. Mixed hyperlipidemia 267 597801 E78.2 Continue current atorvastat in, Vascepa and gemfibrozi l Fasting lipid panel and direct LDL today Counseled about the importance of low-choles terol, low saturated fat and simple carbohydra te diet Hypothyroidism 51952472 E03.9 Appears a clinically euthyroid Continue current [...] neuropathy due to type 2 diabetes mellitus 7082696756 107 E11.42 Symptoms consistent with sensory peripheral neuropathy 10 g monofilame nt testing showed mildly diminished sensations Diabetes care discussed with patient todayPatie nt verbalized understand ing and agreed with the above mentioned plan of care. [id number] KURT PEACE MD [facility] [address] [place] [address] 11/28/2023 09:50:29 11/28/2023 11:37:26 Uncontrolled type 2 diabetes mellitus 514434659 E11.65 A1c in the office today is [...] with the above mentioned plan of care. [id number] [place] [address] [place] [address] 03/01/2024 08:31:11 03/01/2024 09:50:04 Uncontrolled type 2 diabetes mellitus 421593135 E11.65 A1c in the office today down [...] with the above mentioned plan of care. [id number] KURT PEACE MD [facility] [address] [place] [address] 06/07/2024 08:50:46 06/08/2024 04:19:41 Uncontrolled type 2 diabetes mellitus 891164063 E11.65 A1c in the office today down [...] with the above mentioned plan of care.Rk nue metformin and FarxigaChe ck blood glucose upon [...] neuropathy due to type 2 diabetes mellitus 7093111804 107 E11.42 Symptoms consistent with sensory peripheral neuropathy 10 g monofilame nt testing showed mildly diminished sensations Diabetes care discussed with patient todayPatie nt verbalized understand ing and agreed with the above mentioned plan of care. Mixed hyperlipidemia 267 741417 E78.2 Continue current atorvastat in, Vascepa and gemfibrozi l Counseled about the importance of low-choles terol, low saturated fat and simple carbohydra te diet Patient verbalized understand ing and agreed with the above mentioned plan of care. Hypothyroidism 27840289 E03.9 Appears a clinically euthyroidL ast TSH [...] with the above mentioned plan of care. [id number] KURT PEACE MD [facility] [address] [place] [address] 10/11/2024 10:43:44 10/11/2024 12:16:21 Uncontrolled type 2 diabetes mellitus 107337031 E11.65 A1c in the office today down [...] dilated eye exam report Mixed hyperlipidemia 267 844409 E78.2 Continue current atorvastat in, Vascepa and gemfibrozi l Counseled about the importance of low-choles terol, low saturated fat and simple carbohydra te diet Patient verbalized understand ing and agreed with the above mentioned plan of care. Hypothyroidism 31110870 E03.9 Appears a clinically euthyroidL ast TSH of 0.749Conti nue current levothyrox ine therapy same dosePatikev stein was instructed on the appropriat e method [...] neuropathy due to type 2 diabetes mellitus 8809117029 107 E11.42 Symptoms consistent with sensory peripheral neuropathy 10 g monofilame nt testing showed mildly diminished sensations Diabetes care discussed with patient today . Chronic ki dney disease due to type 2 diabetes mellitus 8266410439 08 E11.22 Reported elevated kidney function test during recent lab done in the hospital Her diuretic dose was decreased Recheck BMP 3 months follow-up Patient verbalized understand ing and agreed with the above mentioned plan of care. [id number] JAMILA BAKER APRN [facility] [address] [place] [address] 01/16/2025 11:07:48 01/16/2025 13:05:32 Uncontrolled type 2 diabetes mellitus 548244998 E11.65 In the office today A1c 9.5%, up from 7.9%.Rene baker point-of-c are blood glucose of 144 in the office today.Libia jose states she stopped taking Farxiga due to [...] concerns at this time. Mixed hyperlipidemia 267 031932 E78.2 Lipid Panel on October 115Choles terol 152Triglyc erides 362HDL 46LDL 34Continue current atorvastat in, Vascepa and gemfibrozi lCounseled about the importance of low-choles terol, low saturated fat and simple carbohydra te dietMarcellus stein verbalized understand ing and agreed with the above mentioned plan of care. Hypothyroidism 85080300 E03.9 Thyroid panel from September 2024 showed [...] given atleast four hours before or after. [id number] JAMILA BAKER APRN [facility] [address] [place] [address] 02/13/2025 08:45:16 02/13/2025 10:59:48 Uncontrolled type 2 diabetes mellitus 342150051 E11.65 In the office today A1c 9.3%, down from 9.5%, up from 7.9%.Erino olivia point-of-c are blood glucose of 180 in [...] concerns at this time. Mixed hyperlipidemia 267 546703 E78.2 Lipid Panel on October 115Choles terol 152Triglyc erides 362HDL 46LDL 34Continue current atorvastat in, Vascepa and gemfibrozi lCounseled about the importance of low-choles terol, low saturated fat and simple carbohydra te dietPatien t verbalized understand ing and agreed with the above mentioned plan of care. Hypothyroidism 80493109 E03.9 Thyroid panel from September 2024 showed [...] given atleast four hours before or after. [id number] YA LUTHER, KATHY, LD DI[facility]IAN SERVICES [address] [address] 02/13/2025 08:47:10 02/14/2025 08:15:24 Uncontrolled type 2 diabetes mellitus 877177592 E11.65 [id number] JAMILA BAKER APRN [facility] [address] [place] [address] 04/10/2025 09:16:19 04/10/2025 11:02:17 Uncontrolled type 2 diabetes mellitus 133849092 E11.65 In the office today A1c 9.4%, from 9.3%.Rene baker point-of-c are blood glucose of 158 in the office today. Goal A1c is less than 7%Re-discu ssed [...] is effected by it. Recommenda tions:Cont inue metforminI ncrease Toujeo to 52 units every morningCon tinue Humalog 18 units BID with mealsConti nue Jardiance at 25mg dialy.Star t Mounjaro 2.5 mg weekly (patient educated on this medication , potential side effects, and how to administer with demo pen while in office today).Fol low-up in 4 weeks Eye exam: Positive for diabetic retinopath y as of October 2023, record in chart. Patient states she is going to schedule up-to-date exam.10 g monofilame nt test: Up-to-date Medical Nutrition therapy: Patient had consult with dietitian prior to her office visit today. Patient states understand ing of the above plan of care and with no questions or concerns at this time. Mixed hyperlipidemia 267 497000 E78.2 Lipid Panel on October 115Choles terol 152Triglyc erides 362HDL 46LDL 34Continue current atorvastat in, Vascepa and gemfibrozi lCounseled about the importance of low-choles terol, low saturated fat and simple carbohydra te dietPatien t verbalized understand ing and agreed with the above mentioned plan of care. Hypothyroidism [id number] E03.9 Thyroid panel from September 2024 showed [...] given atleast four hours before or after. [id number] YA LUTHER, RD, LD [facility] [address] [place] [address] 40281-081 1 04/10/2025 09:15:10 04/16/2025 10:50:04 Uncontrolled type 2 diabetes mellitus [id number] E11.65 [id number] DANETTE VALLE MD ENDOCRINO LOG[facility] [address] [place] [address] 36696-630 1 07/22/2025 08:02:00 07/22/2025 09:08:12 Hyperglycemia due to diabetes mellitus [id number] E11.65 [id number] - HbA1C is down today to 7.5% [...] issues- Patient is following up with ophthalmol jose- Repeat CMP, lipid panel, microalbum in creatinine next visit- RTC 3 months Hypertriglyceridemia 302 [id number] E78.1 022267 -On 10/07/2024 triglyceri de was 362- C/W Gemfibrozi l, check lipid profile next visit. Acquired hypothyroidism [id number] E03.9 41165 - Continue levothyrox ine 50 mcg daily- Check thyroid level with next visit Uncontroll ed type 2 diabetes mellitus [id number] E11.65 - HbA1C is down today to [...] Member ID [place] Member ID Guarantor Name 07/19/2025 1 [employer] (MEDICARE REPLACEMENT/A DVANTAGE - PPO) Chiqui Higueran [id number] Chiqui Higueran 08/21/2023 1 [place] [id number] 1 Wilbur Higueran [id number] Chiqui [place]alen 08/22/2023 2 [place] [id number] 1 Wilbur Higueran [id number] Chiqui Lal Notes Date Note Type Note Provider Name and Address Organization Details Recorded Time 02/13/2025 text/html ROS as noted in the HPI Chiqui is a 64-year-old female who presents office to follow-up on diabetes management. Patient that she is tolerating Jardiance without difficulty and she had dietitian appointment prior to her visit with me today. JAMILA BAKER, RADHA [address] [place], [address], [facility] 02/13/2025 10:46:22 04/10/2025 text/html ROS as noted in the HPI Chiqui is a 64-year-old female who presents office today for follow-up on diabetes management. JAMILA BAKER, RADHA [address] [place], [address], [facility] 04/10/2025 11:02:04 07/22/2025 text/html This is a 64-year-old female [...] tolerating it well DANETTE VALLE MD [address] [facility] [place], [address], [facility] 07/22/2025 08:58:45 OBGyn Episode No OBEpisode recorded.
--- OUTSIDE RECORDS SUMMARY | 2025-09-04 07:44 | XMS_ITS | Patient Health Record ---
Author [facility] [address] [facility] [address] [place] [phone] Care Team Providers Care Cap Machine Operator Name Role Phone Yaya Worthington Primary Care Provider Kathya Resendez Unavailable [phone] Allergies Allergen (clinical drug ingredient) Drug/Non Drug [...] Ca 10.9, gfr 54 Performing Lab: Notes/Report: CLIA: [id number] Hank Ayala MD, Professor Of Sport Management [facility] [place] , [address], [place] [address] Test performed by [facility], [facility] Sodium 141 135-145 mmol/L Potassium 4.3 3.5-5.3 [...] 59 Performing Lab: Notes/Report: Test performed by [facility] [address] [place] [address] , [address], [place] [address] Hank Ayala MD, Professor Of Sport Management CLIA: [id number] Albumin/Creatinine Ratio, Urine 59 0-30 ug/m g Microalbumin, Urine, Random 2.6 Creatinine, Urine 43.7 Glycohemoglobin A1c (in hous e) Reviewed date:04/11/2025 12:29:30 PM Interpretation:9 Performing Lab: Notes/Report: 9 glycohemoglobin 9.0% 5 - 6.5 % P-Comprehensive Metabolic Pa muna (CMP) Reviewed date:04/11/2025 12:29:30 PM Interpretation:gluc 105 Performing Lab: Notes/Report: CLIA: [id number] Hank Ayala MD, Professor Of Sport Management [address] [place] [address] , [place] [address] Test performed by [facility] Sodium 143 135-145 mmol/L Potassium 5.0 3.5-5.3 [...] 0.7 <0.2-1.2 mg/dL A/G Ratio 1.7 1.1-2.5 X ray : Shoulder, right Reviewed date:10/09/2024 11:03:07 AM Interpretation:Negative Performing Lab: Notes/Report: Negative MRI : Shoulder, right, witho ut contrast Reviewed date:11/11/2024 09:36:07 AM Interpretation:Abnormal Performing Lab: Notes/Report: Abnormal Medications Medication SIG (Take, Route, Frequency, Duration) Notes Start Date End Date Status Levothyroxine Sodium 50 MCG 1 tablet in the morning on an empty stomach Orally Once a day; Duration: 90 days Active Toujeo SoloStar 300 UNIT/ML 52 units subcutaneously once a day Active amLODIPine-Olmesartan 10-40 MG 1 tablet Orally Once a day; Duration: 90 days Active NovoLOG FlexPen 100 UNIT/ML 14 AM, 18 PM Subcutaneous twice a day Active Metoprolol Succinate ER 50 MG 1 tablet Orally Once a day; Duration: 90 days Active metFORMIN HCl 1000 MG 1 tab(s) orally On a day Active Triamterene-HCTZ 37.5-25 MG Take 1 tablet by mouth once daily; Duration: 90 Active Vascepa 1 GM TAKE 2 CAPSULES BY OUTH TWICE DAILY; Duration: 30 Active Nabumetone 500 MG 1 tablet Orally 08/12/2025 Active Rosuvastatin Calcium 40 MG 1 tab(s) orally Once a day; Duration: 90 days Active Farxiga 10 MG Take 1 tablet by giovanni th once daily Active Ozempic (0.25 or 0.5 MG/DOSE) 2 MG/3ML as directed Subcutaneous Not-Taking Multivitamin - 1 tab(s) orally once a day; Duration: 30 day(s) Active Gemfibrozil 600 MG 1 tablet 30 minutes before morning and evening meals Orally Twice a day; Duration: 90 days Active Dexcom G7 Sensor - as directed; Porter n: 90 days 10/12/2023 Active Dexcom G7 Repairer Screen Crusher - as directed 10/12/2023 Active CeleBREX 200 MG 1 capsule with [...] (65yr and older) IM Intramuscular 08/08/2024 Administered Fluzone High Dose (65yr and older) IM Intramuscular 06/20/2025 Administered COVID 19 Pfizer Unknown 10/19/2020 Administered COVID 19 Pfizer Unknown 11/09/2020 Administered Problems Problem Type SNOMED Code ICD Code Onset Dates Problem Status W/U Status Risk Notes Problem Essential hypertension (80283655) Essential (primary) hypertension (I10) Active confirmed Problem Peripheral circulatory disorder associated with diabetes mellitus (597528828) Type 2 diabetes mellitus with other circulatory complications (E11.59) Active confirmed Problem Essential hypertension (46896148) Essential hypertension (I10) Active confirmed Problem Shortness of breath (641912076) Shortness of breath (R06.02) Active confirmed Problem Osteopenia (762963213) Osteopenia (M85.80) Active confirmed Problem Type II diabetes mellitus without complication (934852314) DM w/o complication type II (E11.9) Active confirmed Problem Mixed hyperlipidemia (985724647) Mixed hyperlipidemia (E78.2) Active confirmed Problem Cholelithiasis AND cholecystitis without obstruction (67489831) Calculus of gallbladder with chronic cholecystitis without obstruction (K80.10) Active confirmed Problem Osteoporosis (10541820) Osteoporosis (M81.0) Active confirmed Problem Long-term current use of insulin (162513972) Insulin long-term use (Z79.4) Active confirmed Problem Shoulder joint pain (474184430) Acute pain of right shoulder (M25.511) Active confirmed Problem Cerebral hemorrhage (075977223) Hemorrhagic stroke (I61.9) Active confirmed Problem Band neutrophil count above reference range (870186973) Bandemia without diagnosis of specific infection (D72.825) Active confirmed Problem Cardiac implant in situ (207418599) Status post angioplasty with stent (Z95.9) Active confirmed Problem Whiplash injury to neck (59610839) Whiplash injury to neck, subsequent encounter (S13.4XXD) Active confirmed Problem Arthropathy of left shoulder (1126817791892814 3) 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) Active confirmed Problem Fibrocystic breast changes (99857689) Fibrocystic breast disease (FCBD), unspecified laterality (N60.19) Active confirmed Problem Whiplash injury to neck (32374313) Whiplash injury to neck, initial encounter (S13.4XXA) Active confirmed Problem Seasonal allergic rhinitis (568618427) Seasonal allergic rhinitis, unspecified trigger (J30.2) Active confirmed Problem Type II diabetes mellitus without complication (602198656) Type 2 diabetes mellitus without complication, unspecified whether assisted insulin use (E11.9) Active confirmed Problem Abnormal findings on diagnostic imaging of limbs (001105349) Abnormal MRI, shoulder (R93.6) Active confirmed Vital Signs Heart Rate 69 /min 08/12/2025 Blood pressure diastolic 74 mm Hg 08/12/2025 Height 63.5 in 08/12/2025 Blood pressure systolic 118 mm Hg 08/12/2025 Weight 165 lbs 08/12/2025 BMI 28.77 kg/m2 08/12/2025 Encounters Encounter Location Date Provider Diagnosis [facility] [address] [id number] 10/10/2024 Yaya Worthington Acute pain of right shoulder M25.511 ; Essential (primary) hypertension I10 ; Insulin long-term use Z79.4 ; Type 2 diabetes mellitus with other circulatory complications E11.59 and Bandemia without diagnosis of specific infection D72.825 [facility] [address] [place] [id number] 03/28/2025 Yaya Worthington Type 2 diabetes viki itus with other circulatory complications E11.59 ; Essential hypertension I10 ; Status post angioplasty with stent Z95.9 ; Insulin long-term use Z79.4 ; Fibrocystic breast disease (FCBD), unspecified laterality N60.19 ; Osteoporosis M81.0 ; Mixed hyperlipidemia E78.2 and BMI 29.0-29.9,adult Z68.29 [facility] [address] [place], [place] [id number] 04/24/2025 Yaya Worthington Calcaneal spur of le ft foot M77.32 [facility] [address] [place], [place] [id number] 06/20/2025 Yaya Worthington Type 2 diabetes viki itus [...] ; BMI 28.0-28.9,adult Z68.28 and Menopause Z78.0 [facility] [address] [place], [place] [id number] 08/12/2025 R Joe Resendez Pleurisy R09.1 [facility] [address] [place], [place] [id number] 10/03/2024 R Joe Resendez Adhesive capsulitis of right shoulder M75.01 [facility] [address] [facility] [address] [place], [place] [id number] 09/12/2024 Yaya Worthington [facility] [address] [facility] [address] [place], [place] [id number] 09/27/2024 Yaya Worthington [facility] [address] [facility] [address] [place], [place] [id number] 10/09/2024 Yaya Worthington [facility] [address] [facility] [address] [place], [place] [id number] 10/11/2024 Yaya Worthington [facility] [address] [place], [place] [id number] 10/31/2024 J Nishant Ander [facility] [address] [place], [place] [id number] 11/11/2024 J Nishant Ander [facility] [address] [place], [place] [id number] 11/12/2024 J Nishant Ander [facility] [address] [place], [place] [id number] 11/21/2024 J Nishant Ander [facility] [address] [place], [place] [id number] 02/11/2025 J Nishant Ander [facility] [address] [place] [id number] 02/12/2025 J Nishant Ander [facility] [address] [place], [place] [id number] 02/17/2025 J Nishant Ander [facility] [address] [place], [place] [id number] 03/18/2025 J Nishant Ander [facility] [address] [place], [place] [id number] 04/11/2025 J Nishant Ander [facility] [address] [place], [place] [id number] 04/14/2025 J Nishant Ander [facility] [address] [place], [place] [id number] 05/13/2025 J Nishant Ander [facility] [address] [place], [place] [id number] 05/15/2025 J Nishant Ander [facility] [address] [place], [place] [id number] 06/17/2025 J Nishant Ander [facility] [address] [place], [place] [id number] 06/19/2025 J Nishant Ander [facility] [address] [place] [id number] 07/07/2025 J Nishant Ander [facility] [address] [facility] [address] [place] [id number] 08/28/2025 Yaya Worthington Assessments Encounter Date Diagnosis (ICD Code) Assessment Notes Treatment Notes Treatment Clinical Notes Section Notes 10/03/2024 Adhesive capsulitis of right shoulder (ICD-10 - M75.01) Obtain x-ray and begin Celebrex. Will likely benefit from physical therapy after review of x-ray. 10/10/2024 Essential (primary) hypertension (ICD-10 - I10) 10/10/2024 Acute pain of right shoulder (ICD-10 - M25.511) 03/28/2025 Type 2 diabetes mellitus with other circulatory complications (ICD-10 - E11.59) 03/28/2025 Essential hypertension (ICD-10 - I10) 04/24/2025 Calcaneal spur of left foot (ICD-10 - M77.32) 06/20/2025 Type 2 diabetes mellitus with other circulatory complications (ICD-10 - E11.59) 06/20/2025 Essential hypertension (ICD-10 - I10) 08/12/2025 Pleurisy (ICD-10 - R09.1) 06/20/2025 Status post angioplasty with stent (ICD-10 - Z95.9) 03/28/2025 Status post angioplasty with stent (ICD-10 - Z95.9) 10/10/2024 Insulin long-term use (ICD-10 - Z79.4) 10/10/2024 Type 2 diabetes mellitus with other circulatory complications (ICD-10 - E11.59) 03/28/2025 Insulin long-term use (ICD-10 - Z79.4) 06/20/2025 Osteopenia (ICD-10 - M85.80) 03/28/2025 Fibrocystic breast disease (FCBD), unspecified laterality (ICD-10 - N60.19) 06/20/2025 Acute pain of right shoulder (ICD-10 - M25.511) 10/10/2024 Bandemia without diagnosis of specific infection (ICD-10 - D72.825) 06/20/2025 Fibrocystic breast disease (FCBD), unspecified laterality (ICD-10 - N60.19) 03/28/2025 Osteoporosis (ICD-10 - M81.0) 06/20/2025 Insulin long-term use (ICD-10 - Z79.4) 03/28/2025 Mixed hyperlipidemia (ICD-10 - E78.2) 03/28/2025 BMI 29.0-29.9,adult (ICD-10 - Z68.29) 06/20/2025 Flu vaccine need (ICD-10 - Z23) 06/20/2025 Colon cancer screening (ICD-10 - Z12.11) 06/20/2025 Breast cancer screening by mammogram (ICD-10 - Z12.31) 06/20/2025 Encounter for screening for osteoporosis (ICD-10 - Z13.820) 06/20/2025 BMI 28.0-28.9,adult (ICD-10 - Z68.28) 06/20/2025 Menopause (ICD-10 - Z78.0) 08/12/2025 Other Call if she develops fever or other respiratory symptoms. Plan Of Treatment Pending Test Test Name Order Date colonoscopy 01/17/2025 DEXA Hip and Spine 03/28/2025 DEXA Hip and Spine 06/20/2025 Mammogram 03/28/2025 Mammogram 06/20/2025 Next Appt Details Provider Name:Yaya Dillard Travis er, 09/19/2025 10:45:00 AM, [address] [facility], [address], [place], [place], [id number], Insurance Providers Payer Name Payer Address Payer Phone Subscriber Number Group Number Insured Name Patient Relationship to Insured Coverage Start Date Coverage End Date [employer] [address] [address] [place] [address] [id number] Chiqui Lal Self - patient is the insured Medications [...] 9 cholecystectomy 11/02/2017 colonoscopy 08/2017 pancreatic biopsy, Dr. Escalona Colonoscopy, Dr. Morris, tubular adenom as 08/22/2017 Hospitalization History Reason Date(Month/Year) [facility] ER Dizzy, vomiting, April 06 2008
--- OUTSIDE RECORDS SUMMARY | 2025-09-04 07:44 | XMS_ITS | Clinical Summary ---
Author Organization Healthcare Address [address] [id number] Care Team Providers Care Linotype Machinist Name Role Phone Kobi Worthington MD Primary Care Provider [phone] Family History Medical History Relation Name Comments [...] of Treatment Not on file Care Teams Linotype Machinist Relationship Specialty Start Date End Date Kobi Worthington MD [address] [place] [address] PCP - General 01/29/21
--- OUTSIDE RECORDS SUMMARY | 2025-09-04 07:44 | XMS_ITS | Clinical Summary ---
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
== END 2025-09-04 23:59 | disposition home or self-care (01) ==
LOC: RAD 07:40
PROVIDERS: PCP Family Medicine; Visit Provider Family Medicine
DX: Z12.31 Encounter for screening mammogram for malignant neoplasm of breast (principal); Z13.820 Encounter for screening for osteoporosis; Z78.0 Asymptomatic menopausal state; N60.19 Diffuse cystic mastopathy of unspecified breast; R92.333 Mammographic heterogeneous density, bilateral breasts; M85.10 Skeletal fluorosis, unspecified site
CPT/HCPCS: 77063; 77067; 77080